=== PATIENT | male | born 1950 | race Caucasian/White ===

== ENCOUNTER → 2018-08-16 08:35 | Outpatient (CLI) | payer MEDICARE, SELFPAY ==
[2018-08-16 09:26] LABS: Absolute Neutrophil Count 2.5 X10^3/uL (2.0-7.7); Basophil# 0.02 X10^3/uL; Basophil% 0.4 % (0-1); Eosinophil# 0.08 X10^3/uL; Eosinophils% 1.6 % (0-5); Hematocrit 44.2 % (40-54); Hemoglobin 15.5 g/dl (13.0-16.5); Lymphocyte % 36.7 % (19-41); Mean Corp Hgb Conc 35.1 g/gl (32-36); Mean Corpuscular Hgb 30.9 pg (27.0-32.0); Mean Corpuscular Volume 88.2 fL (80-94); Mean Platelet Vol. 11.5 fl (6.2-12.0); Monocyte# 0.52 X10^3/uL; Monocyte% 10.6 % (0-10); Neutrophil # 2.48 X10^3/uL (2.7-7.7); Neutrophil % 50.5 % (47-70); Platelet Count 117 K/mm3 (150-450); RBC Distribution Width CV 12.8 % (11.6-14.6); RBC Distribution Width SD 40.6 fl (35.1-43.9); Red Blood Count 5.01 M/mm3 (4.6-6.2); White Blood Count 4.9 K/mm3 (4.4-11.0)
[2018-08-16 09:28] LABS: POSITIVE COUNT NO; POSITIVE DIFFERENTIAL NO; POSITIVE MORPHOLOGY NO
[2018-08-16 09:51] LABS: Anion Gap 6 (5-15); BUN 22 mg/dL (7-18); BUN/Creat Ratio 17.7 RATIO (10-20); Calcium,Total 8.8 mg/dL (8.5-10.1); Chloride 106 mmol/L (98-107); Cholesterol 172 mg/dL (200); Creatinine, Serum 1.24 mg/dL (0.70-1.30); EST Glomerular Filtration Rate 61 mL/min (>60); Est Glom Filt Rate - Afr Amer 74 mL/min (>60); Glucose 109 mg/dL (74-106); High Density Lipoprotein 34 mg/dL; Potassium 4.9 mmol/L (3.5-5.1); Sodium Level 139 mmol/L (136-145); Triglycerides 161 mg/dL; Very Low Density Lipoprotein 32 mg/dL (5-40)
[2018-08-16 10:02] LABS: Hemoglobin A1c 5.1 % (4.2-6.3)
== END ==
PROVIDERS: Family Provider Family Medicine; PCP Family Medicine; Referring Provider Family Medicine; Visit Provider Family Medicine
DX: I10 Essential (primary) hypertension (principal); D69.6 Thrombocytopenia, unspecified; R73.09 Other abnormal glucose; E78.5 Hyperlipidemia, unspecified
CPT/HCPCS: 36415; 80048; 80061; 83036; 85025

== ENCOUNTER → 2018-08-28 08:20 | Outpatient (CLI) | payer MEDICARE, SELFPAY ==
[2018-08-28 09:50] LABS: PSA,Total - Annual Screen 1.74 ng/mL (0.00-4.00)
== END ==
PROVIDERS: Family Provider Family Medicine; PCP Family Medicine; Referring Provider Family Medicine; Visit Provider Family Medicine
DX: Z12.5 Encounter for screening for malignant neoplasm of prostate (principal)
CPT/HCPCS: 36415; 84153; G0103

== ENCOUNTER 2019-01-20 08:25 | Day surgery (SDC) | payer MEDICARE, SELFPAY ==
[2019-01-15 08:20] VITALS: BMI 31.3
--- NOTE | 2019-01-19 22:14 | PCM.HP.BLA ---
History and Physical Date of Admission: 01/20/19 HISTORY OF PRESENT ILLNESS 68 year old man presents with a recently infected soft tissue mass right lateral cheek inferior and adjacent to the earlobe. It was infected about 2 months ago. He was placed on Keflex. It had increased in size at that time and has since become smaller. There is some residual redundant skin in the area of the infected soft tissue mass. He also has concerns about a lesion on his superior helical rim right ear that has increased in size over the last several months as well. He first noticed it as a child. He denies any trauma. He denies any fever. He denies any bleeding or drainage. 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 He sees Dr[address] Her periodically for TBSE. He presents at this time for further evaluation and treatment. PAST MEDICAL HISTORY squamous cell carcinoma right frontal scalp. PAST SURGICAL HISTORY appendectomy. excision squamous cell carcinoma right frontal scalp 2008. ALLERGIES No Known Allergies MEDICATIONS Aspirin [Aspirin, Baby] lisinopril multivitamins. Cholecalciferol (Vitamin D3) [Vitamin D3] FAMILY HISTORY Unknown - No problems noted. SOCIAL HISTORY Smoking Status: Never smoker alcohol intake: never substance use type: does not use REVIEW OF SYSTEMS General - Denies fever, fatigue, and weight loss. Eyes - Denies cataracts and glaucoma. ENT - Denies nasal congestion and sore throat. Endocrine - Denies excessive thirst and urination. Skin - Had squamous cell carcinoma right frontal scalp excised 10 years ago. Has an enlarging lesion superior helical rim right ear. Has a recently infected soft tissue mass right lateral cheek inferior and adjacent to the earlobe. Musculoskeletal - Denies joint pain, joint stiffness, weakness of muscles and joints, back pain, and arthritis. Neuro - Denies headaches. Cardiovascular - Denies chest pain, fatigue, and shortness of breath with exertion. Psych - Denies anxiety and depression. Respiratory - Denies chronic cough and shortness of breath. Gastrointestinal - Denies nausea, vomiting, diarrhea, and constipation. Hematologic - Denies abnormal bruising and bleeding. Genitourinary - Denies hematuria and urinary frequency. PHYSICAL EXAMINATION General - Alert and Oriented HEENT - PERRL. EOMI. Throat is clear. On the right lateral cheek inferior and adjacent to the earlobe is a 9 mm soft tissue mass. Skin is adherent to the mass. No evidence of infection at this time. No ulceration. Mass is nontender. On the superior helical rim right ear is a lesion that measures 2 cm. No adherence to the underlying cartilage. No ulceration. Lesion is nontender. Neck - Supple and nontender. No cervical adenopathy. No suspicious lesions noted. Lungs - Clear to auscultation. Heart - Regular rate and rhythm. Abdomen - Soft and nondistended. Extremities - FROM. No axillary adenopathy. Radial pulses are palpable. No suspicious lesions noted. Neuro - CN II-XII grossly intact. Psych - Normal mood and affect. ASSESSMENT 1. 9 mm infected soft tissue mass right lateral cheek inferior and adjacent to the earlobe. 2. 2 cm lesion superior helical rim right ear. 3. Personal history of skin cancer. PLAN Recommend excision of this infected soft tissue mass right lateral cheek inferior and adjacent to the earlobe and send it to Pathology for analysis to rule out carcinoma. If carcinoma is present, then further excision will be done with skin flap reconstruction. It would a crescenteric advancement flap similar to a facelift type incision. Recommend excision and repair of the lesion superior helical rim right ear. Will send the lesion to Pathology for analysis to rule out carcinoma. Surgery will be done under local anesthesia and IV sedation on an outpatient basis. Patient was informed of the risks and complications of the procedure including alternatives to surgery. These were discussed with the patient personally. Patient voices understanding and wishes to proceed. Some of the risks and complications were included in a form from the [employer].
[2019-01-20 08:56] VITALS: BP 123/68; PULSE 55; RESP 16; TEMP 36.3; O2SAT 97; BMI 32.3
--- NOTE | 2019-01-20 10:05 | MASS_PTH ---
PATIENT: SVEN GORDON LOC: [facility] U#:[id number] AGE/SX: 68/M ROOM: RE01/20/[address]: Dr. Bakari Martin MD : [id number] BED: DIS: 01/20/2019 SPEC #: [id number] RECD: 01/20/19 16:25 STATUS: MAIRO ALBERTO LAZARUS #: [id number] ALEXIS: 01/20/19 10:[address]: Bakari Martin DEPT: SURGICAL PATHOLOGY RECD BY: Gee Hyman ENTERED: 01/21/19 11:30 SP TYPE: Mass OTHR DR: Dr. Toby Burt MD Tissues: A - Cheek, NOS B - Ear, NOS Procedures: Surgery Specimen Level IV HEADER OPERATION: Excision cystic lesion, earlobe/lateral cheek PRE-OP DIAGNOSIS: 9 mm infected soft tissue mass right lateral cheek inferior and adjacent to earlobe; 2 cm lesion superior helical rim right ear; personal history skin cancer TISSUE SUBMITTED: A - Infected soft tissue mass right lateral cheek inferior and adjacent to earlobe, B - Lesion superior helical rim right ear, suture at 12 o'clock including cartilage MICROSCOPIC DIAGNOSIS A. Infected soft tissue mass right lateral cheek inferior and adjacent to earlobe, biopsy: Epidermal inclusion cyst. Focal chronic inflammation and foreign body giant cell reaction. Solar elastosis. Negative for malignancy. B. Lesion superior helical rim right ear, excisional biopsy: Actinic keratosis with minimal atypia. Solar elastosis. Detached fragments of cartilage. Negative for malignancy. SJ:latha 01/22/19 MICROSCOPIC DESCRIPTION Slides are reviewed. GROSS DESCRIPTION A - Received in fixative is one container labeled with the patient's name and designated infected soft tissue mass right lateral cheek inferior and adjacent to earlobe. The specimen consists of three variable sized pieces of skin and underlying tissue measuring in aggregate 0.7 x 0.5 x 0.3 cm. The largest piece is bisected. The entire specimen is submitted in one cassette. B - Received in fixative is one container labeled with the patient's name and designated lesion superior helical rim right ear, suture at 12 o'clock. The specimen consists of a soni-white skin ellipse measuring 2.2 x 0.5 cm and 0.2 cm in thickness. A suture is present identifying the 12 o'clock tip. The specimen is inked as follows: peripheral margin including 3 o'clock - black and the other peripheral margin including 9 o'clock - blue. This piece will be serially sectioned at the time of embedding. Also present in the container are multiple fragments of soni-brown skin measuring in aggregate 1 x 0.5 x 0.2 cm. The entire specimen is submitted in two cassettes as follows: 1 - skin ellipse to be sectioned at the time of embedding, 2 - rest of the specimen. / SJ:rg 01/21/19 TC:5 CPT: 46115 x2
[2019-01-20] MEDS: Mupirocin Ointment 22gm Tube 1 APPLIC (12:37)
--- NOTE | 2019-01-20 12:42 | OP.PCM_ITS ---
Report of Operation Date of Procedure: 01/20/19 Pre-Operative Diagnosis: 1. 9 mm infected soft tissue mass right lateral cheek inferior and adjacent to the earlobe. 2. 2 cm lesion superior helical rim right ear. 3. Personal history of skin cancer. Post-Operative Diagnosis: 1. 9 mm infected soft tissue mass right lateral cheek inferior and adjacent to the earlobe. 2. 2 cm lesion involving underlying cartilage superior helical rim right ear. 3. Personal history of skin cancer. Surgery/Procedure Performed:: 1. Excision 9 mm infected soft tissue mass right lateral cheek inferior and adjacent to the earlobe with postauricular rhomboid transposition skin flap reconstruction (2 cm2). 2. Excision and repair 2 cm lesion involving underlying cartilage superior helical rim right ear. Description of Surgical Findings:: 68 year old man presents with a recently infected soft tissue mass right lateral cheek inferior and adjacent to the earlobe. It was infected about 2 months ago. He was placed on Keflex. It had increased in size at that time and has since become smaller. There is some residual redundant skin in the area of the infected soft tissue mass. He also has concerns about a lesion on his superior helical rim right ear that has increased in size over the last several months as well. He first noticed it as a child. He denies any trauma. He denies any fever. He denies any bleeding or drainage. 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 He sees Dr[address] Her periodically for TBSE. Patient was informed of the risks and complications of the procedure including alternatives to surgery. These were discussed with the patient personally. Patient voices understanding and wishes to proceed. Some of the risks and complications were included in a form from the [employer]. assembler dc field ring: None Type of Anesthesia:: General Specimen's removed: 1. Infected soft tissue mass right lateral cheek inferior and adjacent to the earlobe to Pathology. 2. Lesion involving underlying cartilage superior helical rim right ear to Pathology. Drains: None. Estimated Blood Loss (mL): 25 ml. Description of Procedure: Patient was taken to OR in supine position and was placed under general anesthesia. The right ear was prepped and draped in the usual fashion. SCD's were placed for DVT prophylaxis. Perioperative antibiotics were given intravenously. Using xylocaine with epinephrine, a regional auricular block was infiltrated for postop pain relief. After waiting 5 minutes for the anesthetic to take effect, I excised the infected soft tissue mass lateral cheek inferior and adjacent to the earlobe which included the overlying skin because it was adherent. There was some scar tissue present that was also excised. No pus was seen. The underlying muscle was soft and healthy with no evidence of scarring from his previous infections. The soft tissue mass was sent to Pathology for analysis to rule out carcinoma. The defect extended onto a portion of the earlobe. I marked out a rhomboid flap extending onto the postauricular area. Incisions were made and the flap was elevated on a subcutaneous pedicle down to the level of the underlying muscle. Hemostasis was obtained with electrocautery. The rhomboid flap was easily transposed into the defect with minimal tension and minimal distortion. The flap was closed in multiple layers with 5-0 Monocryl interrupted sutures for the deep dermis and subcutaneous tissue. The skin was approximated with 5-0 Prolene simple interrupted sutures. The size of the defect and the size of the flap needed to close the defect was 2 cm2. Next I excised the lesion on the superior helical rim down to the cartilage. The lesion was adherent to the cartilage and a portion of cartilage was excised with the lesion. The cartilage portion that was excised extended onto the scapha. The lesion and underlying cartilage was sent to Pathology for analysis to rule out carcinoma. Hemostasis was obtained with electrocautery. I then closed the ear defect primarily with 5-0 Monocryl simple interrupted sutures. Good contour was noted. Steri-strips were then applied to both incisions followed by antibiotic ointment. Patient tolerated the procedure well and was sent to PACU in satisfactory condition. Patient will be sent home on antibiotics and pain medication. He will keep his head elevated during the initial postop period. Patient will followup in a week for a wound check and for discussion of the pathology report and for removal of the sutures. Grafts/Implants Used: None. - Complications None. - Admit VTE Documentation VTE Present on Admission: No VTE Mechan Device Prophylaxis: SCD's VTE Pharm Prophylaxis ordered?: No Code Visit Surgery Charges CPT - 83420 ICD-10 - R22.0, Z87.2, Z85.828 78096 D49.2, Z85.828
[2019-01-20 12:53] VITALS: BP 123/66; BP 123/68; PULSE 78; RESP 16; TEMP 36.6; O2SAT 98
--- NOTE | 2019-01-20 12:53 | DCINST_ITS ---
You will use the following diet at home:: No restrictions Discharge Activity: May not drive while taking narcotic pain medications., May Shower - in 2 days., - - keep head elevated. no heavy liftng. May shower in (days): 2 May resume sexual activity in: No Restrictions Weight Bearing Status: Weight bearing as tolerated Lifting Restrictions: 20 lbs. Keep extremity elevated above heart level: - - elevate head. Call your doctor if your incision/area has: Continuous Slow Oozing, Sudden Increased Bleeding, Increased Pain/ Swelling, Increased Redness, Foul Smelling Discharge, Swelling at the incision site Call your doctor if you observe: Fever of 101 or Higher, Coldness, Increased Pain, Shortness of breath, Chest pain, Calf discomfort, Uncontrolled pain Suture Line Care: - - apply bactroban ointment to suture line daily. Change Dressing in (Days):: 2 Cleanse incision/area with: - - may get incisions wet in the shower in two days. Allergies/Adverse Reactions: Allergies No Known Allergies Allergy (Verified 01/16/19 15:42) Medications to take at Discharge lisinopril 5 mg tablet 5 mg PO DAILY 12/23/18 [id number] acid 300 mcg-lycopene 600 mcg-lutein 300 mcg tablet 1 tab PO DAILY 12/23/18 Cholecalciferol (Vitamin D3) [Vitamin D3] 2,000 unit PO DAILY 01/16/19 Clindamycin HCl [Cleocin] 300 mg PO TID #15 cap 01/20/19 Lactobacillus Acidophilus/Fos [Acidophilus Probiotic Tablet] 1 ea PO BID #10 tab 01/20/19 Oxycodone HCl/Acetaminophen [Percocet 5/325] 1 tab PO 4X/DAY PRN PRN 5 Days #20 tab 01/20/19 The following prescriptions were given: Oxycodone HCl/Acetaminophen [Percocet 5/325] 1 tab PO 4X/DAY PRN PRN 5 Days #20 tab PRN Reason: Pain Lactobacillus Acidophilus/Fos [Acidophilus Probiotic Tablet] 1 ea PO BID #10 tab Clindamycin HCl [Cleocin] 300 mg PO TID #15 cap Primary Care Physician: Toby Burt MD [Primary Care Provider] - Test Results: Test results from this visit will be discussed in further detail at your follow- up appointment, if applicable. Please Follow Up With: Bakari Martin MD When: one week. call [phone] for appt. Proposed Discharge Date: 01/20/19
[2019-01-20 13:01] VITALS: BP 115/71; BP 123/68; PULSE 78; RESP 16; O2SAT 98
[2019-01-20 13:12] VITALS: BP 120/73; BP 123/68; PULSE 74; RESP 18; TEMP 36.6; O2SAT 98
[2019-01-20 14:15] VITALS: BP 109/61; BP 123/68; PULSE 62; RESP 18; TEMP 36.7; O2SAT 94
== END 2019-01-20 14:16 | disposition home or self-care (01) ==
LOC: SDC 08:27 → AC 08:27
PROVIDERS: Family Provider Family Medicine; PCP Family Medicine; Referring Provider Surgery; Visit Provider Surgery
PROC: (CPT 14040; principal; 2019-01-20 09:55)
DX: R22.0 Localized swelling, mass and lump, head (principal); L98.8 Other specified disorders of the skin and subcutaneous tissue; L72.0 Epidermal cyst; L57.0 Actinic keratosis; Z85.828 Personal history of other malignant neoplasm of skin; L08.9 Local infection of the skin and subcutaneous tissue, unspecified; Z79.899 Other long term (current) drug therapy; Z79.82 Long term (current) use of aspirin; I10 Essential (primary) hypertension; L90.5 Scar conditions and fibrosis of skin
CPT/HCPCS: 00120; 14040; 69110; 88305; J7120; J2405

== ENCOUNTER → 2019-08-30 08:02 | Outpatient (CLI) | payer MEDICARE, SELFPAY ==
[2019-02-13 10:19] VITALS: BMI 32.3
[2019-08-30 08:54] LABS: Absolute Neutrophil Count 3.2 X10^3/uL (2.0-7.7); Basophil# 0.02 X10^3/uL; Basophil% 0.3 % (0-1); Eosinophil# 0.14 X10^3/uL; Eosinophils% 2.4 % (0-5); Hematocrit 43.7 % (40-54); Lymphocyte % 32.9 % (19-41); Mean Corp Hgb Conc 34.3 g/dL (32-36); Mean Corpuscular Hgb 30.5 pg (27.0-32.0); Mean Platelet Vol. 11.4 fl (6.2-12.0); Monocyte# 0.56 X10^3/uL; Monocyte% 9.7 % (0-10); NRBC Flagged by Analyzer 0 % (0-5); Neutrophil # 3.15 X10^3/uL (2.7-7.7); Neutrophil % 54.5 % (47-70); Platelet Count 149 K/mm3 (150-450); RBC Distribution Width CV 12.5 % (11.6-14.6); RBC Distribution Width SD 40.5 fl (35.1-43.9); Red Blood Count 4.91 M/mm3 (4.6-6.2); White Blood Count 5.8 K/mm3 (4.4-11.0)
[2019-08-30 09:27] LABS: Anion Gap 3 (5-15); BUN 20 mg/dL (7-18); BUN/Creat Ratio 15.9 RATIO (10-20); Calcium,Total 8.9 mg/dL (8.5-10.1); Chloride 107 mmol/L (98-107); Cholesterol 179 mg/dL (200); Creatinine, Serum 1.26 mg/dL (0.70-1.30); EST Glomerular Filtration Rate 60 mL/min (>60); Est Glom Filt Rate - Afr Amer 73 mL/min (>60); Glucose 104 mg/dL (74-106); High Density Lipoprotein 37 mg/dL; PSA,Total - Annual Screen 1.45 ng/mL (0.00-4.00); Potassium 4.4 mmol/L (3.5-5.1); Sodium Level 139 mmol/L (136-145); Triglycerides 117 mg/dL; Very Low Density Lipoprotein 23 mg/dL (5-40)
== END ==
PROVIDERS: Family Provider Family Medicine; PCP Family Medicine; Referring Provider Family Medicine; Visit Provider Family Medicine
DX: I10 Essential (primary) hypertension (principal); R73.09 Other abnormal glucose; E78.5 Hyperlipidemia, unspecified; Z12.5 Encounter for screening for malignant neoplasm of prostate
CPT/HCPCS: 36415; 80048; 80061; 83036; 84153; 85025; G0103

== ENCOUNTER 2020-01-06 01:45 | Emergency (ER) | payer MEDICARE, SELFPAY ==
[2019-02-13 10:19] VITALS: BMI 32.3
[2020-01-06 01:45] VITALS: BP 178/73; PULSE 72; RESP 12; TEMP 36.9; O2SAT 98; BMI 30.9
--- NOTE | 2020-01-06 01:48 | EKG12_ITS ---
Test Reason : PALPITATIONS Blood Pressure : / mmHG Vent. Rate : 060 BPM Atrial Rate : 060 BPM P-R Int : 184 ms QRS Dur : 092 ms QT Int : 402 ms P-R-T Axes : 030 018 027 degrees QTc Int : 402 ms Normal sinus rhythm Normal ECG Confirmed by SANTOS SKY MD ([id number]), non linear editor FLORES VARGAS ([id number]) on 01/08/2020 1:31:02 PM Referred By: STEVIE Confirmed By:SANTOS SKY MD
--- NOTE | 2020-01-06 01:48 | RAD_ITS ---
STUDY: X-RAY CHEST REASON FOR EXAM: Male, 69 years old. HIGH HR AND BP. HAS BEEN HAPPENING INTERMITTENTLY FOR 1.5 WEEKS. TECHNIQUE: Single AP portable view of the chest. COMPARISON: None. FINDINGS: There is decreased inspiratory effort with vascular crowding, otherwise lung vera are clear. There is no demonstrated pleural abnormality. Normal size heart. Normal mediastinum and laura. Normal visualized pulmonary arteries. There is atherosclerotic calcification of the aortic arch with tortuosity. There are diffuse degenerative changes of the visualized thoracic spine. There is degenerative osteoarthritis of the bilateral shoulders. There is no demonstrated abnormality of the visualized soft tissue structures of the upper abdomen. RAD/Chest 1 View (Portable) IMPRESSION: Decreased inspiration with vascular crowding, otherwise no acute cardiopulmonary disease. Electronically Signed: Breanna Larose MD at 2:47 EDT , Service support ,
--- NOTE | 2020-01-06 02:08 | ED.DCSUM_ITS ---
- ER Visit Summary Date of Service: 01/06/20 Chief Complaint: Heart palpitations History of Present Illness: The patient is a [address] hypertension for which she is on lisinopril. Patient states he and his recently took a 2-month cruise from [place] around [place] in that area. Said he is done well. Since he has been home the last 1 to 2 weeks he is noticed palpitations of his heart. This at times heart rate will race. At other times his blood pressures been elevated. He denies any significant chest pain. No shortness of breath. No exertional chest pain or dyspnea. Said he is never had cardiac history before. Denies any leg pain or swelling. No hemoptysis. He denies any nausea, vomiting or diarrhea. Denies any fever or chills. Denies any significant cough. Physical Examination: Older male no acute distress vital signs stable afebrile. Pulse ox 90% on room air no signs of hypoxia. No distress. H EENT exam unremarkable. Moist use membranes. Neck nontender. No lymphadenopathy. No thyromegaly. Lungs clear to auscultation bilaterally. Heart regular rate and rhythm rate about 60 no murmur. Abdomen soft nontender normal bowel sounds no peritoneal signs. Patient is moving all 4 extremities. Calves are nontender without edema or cords. Neurologically is awake and alert with no focal motor deficits. Test Results: EKG shows a normal sinus rhythm rate of 60 with no signs of ID or ischemia. No dysrhythmia. Chest x-ray portable 1 view read both by myself and the radiologist shows no acute abnormality. Normal cardiac silhouette. Normal lung vera. No infiltrate. No cardiomegaly. CBC normal white count of 7. Hemoglobin 15. Chemistries normal normal creatinine 1.1. Normal gap. TSH normal at 2.98. Troponin normal. Emergency Department Course and Treatment: Patient with palpitations. Currently exam is normal. Heart rate is 60. No murmur. No dysrhythmia currently. He will undergo cardiac work-up. Reportedly his may have some information from a [employer] watch I will see if she has that with her. Repeat exam patient is doing well at 3:51 AM. I did discuss with his and she showed me the recordings from the [employer] watch. They were basically unrema rkable. There is no signs of A. fib or flutter. No signs of SVT or V. tach. He may have had a transient dysrhythmia but nothing I can find currently. Treatment Plan: Outpatient follow-up. Primary care physician may choose to put him on a Holter or an event monitor at home. Disposition: Discharge Impression: Acute palpitations of uncertain etiology resolved This note was generated with [employer] dictation software. It may contain incorrect words, spelling, and punctuation that were not noted in review of the chart prior to signing ED Disposition - Plan for ED Patient: Referrals: Toby Burt MD [Primary Care Provider] -
[2020-01-06 02:12] LABS: Absolute Lymphocyte Count 2.58 X10^3/uL (0.83-4.51); Absolute Neutrophil Count 3.9 X10^3/uL (2.0-7.7); Basophil# 0.02 X10^3/uL; Basophil% 0.3 % (0-1); Eosinophil# 0.12 X10^3/uL; Eosinophils% 1.6 % (0-5); Hematocrit 45.6 % (40-54); Hemoglobin 15.9 g/dL (13.0-16.5); Lymphocyte # 2.58 X10^3/ul (4.0); Lymphocyte % 35.4 % (19-41); Mean Corp Hgb Conc 34.9 g/dL (32-36); Mean Corpuscular Hgb 30.9 pg (27.0-32.0); Mean Corpuscular Volume 88.5 fL (80-94); Mean Platelet Vol. 10.6 fl (6.2-12.0); Monocyte# 0.68 X10^3/uL; Monocyte% 9.3 % (0-10); NRBC Flagged by Analyzer 0 % (0-5); Neutrophil # 3.85 X10^3/uL (2.7-7.7); Platelet Count 144 K/mm3 (150-450); RBC Distribution Width CV 12.2 % (11.6-14.6); RBC Distribution Width SD 39.8 fl (35.1-43.9); Red Blood Count 5.15 M/mm3 (4.6-6.2); White Blood Count 7.3 K/mm3 (4.4-11.0)
[2020-01-06 03:12] LABS: Anion Gap 4 (5-15); BUN 24 mg/dL (7-18); BUN/Creat Ratio 20.5 RATIO (10-20); Calcium,Total 8.9 mg/dL (8.5-10.1); Chloride 107 mmol/L (98-107); Creatinine, Serum 1.17 mg/dL (0.70-1.30); EST Glomerular Filtration Rate 65 mL/min (>60); Est Glom Filt Rate - Afr Amer 79 mL/min (>60); Estimated Creatinine Clearance 54.14 ml/min; Glucose 116 mg/dL (74-106); Potassium 4.4 mmol/L (3.5-5.1); Sodium Level 139 mmol/L (136-145); Thyroid Stim Hormone (TSH) 2.98 uIU/mL (0.358-3.74)
[2020-01-06 03:45] VITALS: BP 137/69; PULSE 57; RESP 16; O2SAT 96
--- NOTE | 2020-01-06 03:55 | ED.DEP ---
ED Disposition - Plan for ED Patient: Disposition: Home or Assisted Living Instructions: Palpitations Referrals: Robbin Robles MD [STAFF PHYSICIAN] - As soon as possible Additional Instructions: All your lab work, chest x-ray and EKG were normal today. Your blood counts, electrolytes, heart enzyme and thyroid test were all normal. There were no signs of any abnormal rhythm while you are in the emergency department. Follow-up your primary care physician they can have you wear either an event monitor or a Holter monitor to evaluate your heart rate at home to see if there is any abnormality.
[2020-01-06 04:00] VITALS: BP 137/69; PULSE 57; RESP 16; O2SAT 96
== END 2020-01-06 04:03 | disposition home or self-care (01) ==
PROVIDERS: Emergency Provider Emergency Medicine; PCP Family Medicine
DX: R00.2 Palpitations (principal); I10 Essential (primary) hypertension; Z79.899 Other long term (current) drug therapy
CPT/HCPCS: 71045; 80048; 84443; 84484; 85025; 93005; 99284; A4216

== ENCOUNTER 2020-01-08 03:05 | Emergency (ER) | payer MEDICARE, SELFPAY ==
[2020-01-08 03:06] VITALS: BP 169/83; PULSE 68; RESP 14; TEMP 36.6; O2SAT 98; BMI 31.1
--- NOTE | 2020-01-08 03:17 | EKG12_ITS ---
Test Reason : DYSRHYTHMIA Blood Pressure : / mmHG Vent. Rate : 059 BPM Atrial Rate : 059 BPM P-R Int : 192 ms QRS Dur : 096 ms QT Int : 394 ms P-R-T Axes : 026 040 035 degrees QTc Int : 390 ms Sinus bradycardia Otherwise normal ECG Confirmed by JOSE DANIEL BYRNES, SANTOS ([id number]), newspaper editor managing FLORES VARGAS ([id number]) on 01/08/2020 1:44:48 PM Referred By: KIT Confirmed By:SANTOS SKY MD
--- NOTE | 2020-01-08 03:18 | ED.DCSUM_ITS ---
History of Present Illness Chief Complaint: General Illness Informant: Patient Narrative: Stated this evening he felt some palpitations in his heart rate was up to 110. This was concerning to him. He was seen on Sunday for similar complaints. He stated he rolled over in bed and felt a twinge for a second on the left side of his chest. It went away. He felt like his hands and feet were sweaty. He stated his heart started to race. He took his blood pressure and it was elevated at 190 systolic. Earlier in the day his blood pressure was 120 systolic. He saw his doctor yesterday who plans on doing a Holter monitor as well as a outpatient stress test. He denies any current chest pain or symptoms at this time. He does not feel like his heart is racing. He has been monitoring his heart rate with his apple watch. Denies any cardiac history. Nothing he can think of brings it on. - Past Medical History (1) Topical medication dermatitis Status: Acute Comment: Betadine prep (2) Actinic keratosis Status: Chronic Comment: 2 cm actinic keratosis with minimal atypia superior helical rim right ear (3) Cheek mass Status: Chronic Comment: 9 mm infected soft tissue mass right lateral cheek inferior and adjacent to earlobe (4) Epidermal inclusion cyst Status: Chronic Comment: 9 mm infected epidermal inclusion cyst right lateral cheek inferior and adjacent to earlobe (5) History of cellulitis Status: Chronic Comment: 9 mm infected soft tissue mass right lateral cheek inferior and adjacent to earlobe (6) Neoplasm of skin of ear Status: Chronic Comment: 2 cm lesion superior helical rim right ear (7) Personal history of skin cancer Status: Chronic Past Medical History - Allergies and Home Meds Allergies/Adverse Reactions: Allergies No Known Allergies Allergy (Verified 01/08/20 03:11) Primary Care Physician: Toby Burt MD [STAFF PHYSICIAN] - Prior records reviewed: Yes Past Medical History: - - Problem list, hypertension, palpitations Surgical History: - - Reviewed Lives: With Family Smoking Status: Never smoker Alcohol: None Drugs: None Review of Systems General: Denies: Chills, Fever, Sweats Eyes: Denies: Visual changes - bilaterally, Diplopia ENT: Denies: Rhinorrhea, Sore throat Cardiovascular: Reports: Palpitations. Denies: Chest pain Respiratory: Denies: Dyspnea, Cough, Dyspnea on exertion Gastrointestinal: Denies: Abdominal pain, Nausea, Vomiting, Diarrhea, Melena, Hematochezia Genitourinary: Denies: Dysuria, Hematuria, Frequency Musculoskeletal: Denies: Back pain, Extremity Pain Skin: Denies: Rash, Wounds Neurological: Denies: Headache, Weakness, Numbness Physical Exam Vital Signs/Narrative: Vital Signs Temp Pulse Resp BP Pulse Ox 01/08/20 03:06 98 F 68 14 169/83 H 98 General: Well nourished, Well developed, No Acute Distress Head: Normocephalic, Atraumatic Eyes: Perrl, EOMI ENT: Moist mucous membranes, No rhinorrhea Neck: Supple, Nontender Cardiovascular: Regular rate, Regular rhythm, No murmurs Respiratory: No distress, CTA bilaterally, Chest nontender Abdomen: Soft, Nontender, Nondistended, Normal bowel sounds Back: Nontender, Normal Inspection Extremities: Nontender, No edema Skin: Normal color, No rash Neurological: Alert, Oriented x3, Cranial nerves II-XII grossly intact, Normal Strength, Normal Sensation Psychological: Normal affect, Normal Mood Diagnostic/Tx/Re-eval - Medical Decision Making Patient watched on the monitor. He is in normal sinus rhythm upon arrival w ithout ischemia or arrhythmia. EKG obtained. EKG shows normal sinus rhythm at a rate of 59. No ischemia or arrhythmia. Patient watched on the monitor with no arrhythmia for approximately an hour. I will set him up for a Holter monitor for the next 24 hours. He felt a mild twinge followed by this reaction. It is possible that he had a panic attack. Nonetheless I feel it is important to chec k this. He will try this and follow-up as an outpatient. I do not feel he needs repeat her lab work or imaging. He is asymptomatic currently. Repeat blood pressure down to 152/77 after resting for some time ED Disposition - Plan for ED Patient: Disposition: Home or Assisted Living Diagnosis: Palpitations Instructions: ED Palpitations Referrals: Mare Lyons MD [Primary Care Provider] -
[2020-01-08 03:35] VITALS: BP 155/75; PULSE 58; RESP 13; O2SAT 98
[2020-01-08 03:54] VITALS: BP 152/77; PULSE 65; RESP 17; O2SAT 99
[2020-01-08 04:08] VITALS: BP 170/84; PULSE 64; RESP 15; O2SAT 96
== END 2020-01-08 04:09 | disposition home or self-care (01) ==
PROVIDERS: Emergency Provider Emergency Medicine; PCP Family Medicine
DX: R00.2 Palpitations (principal); I10 Essential (primary) hypertension
CPT/HCPCS: 93005; 93225; 93226; 99282

== ENCOUNTER → 2020-01-08 03:43 | Outpatient (CLI) | payer MEDICARE, SELFPAY ==
[2020-01-08 03:06] VITALS: BMI 31.1
== END ==
PROVIDERS: PCP Family Medicine; Visit Provider Internal Medicine Cardiovascular Disease
DX: R00.2 Palpitations (principal)
CPT/HCPCS: 93005; 93225; 93226

== ENCOUNTER → 2020-01-09 10:26 | Outpatient (CLI) | payer MEDICARE, SELFPAY ==
[2020-01-08 03:06] VITALS: BMI 31.1
[2020-01-09 13:20] LABS: CRP < 2.90 mg/L (0.0-3.0); Magnesium 2.2 mg/dL (1.6-2.6); T4 Free Direct 1.28 ng/dL (0.76-1.46)
[2020-01-09 13:30] LABS: Hemoglobin A1c 5.2 % (4.2-6.3)
== END ==
PROVIDERS: PCP Family Medicine; Visit Provider Family Medicine
DX: R00.2 Palpitations (principal); R73.09 Other abnormal glucose
CPT/HCPCS: 36415; 83036; 83735; 84439; 86140

== ENCOUNTER 2020-01-15 22:24 | Observation (INO) | payer MEDICARE, SELFPAY ==
[2020-01-15 22:25] VITALS: BP 163/83; PULSE 57; RESP 18; TEMP 36.8; O2SAT 99; BMI 30.7
--- NOTE | 2020-01-15 22:44 | EKG12_ITS ---
Test Reason : CP Blood Pressure : / mmHG Vent. Rate : 047 BPM Atrial Rate : 047 BPM P-R Int : 200 ms QRS Dur : 090 ms QT Int : 404 ms P-R-T Axes : 039 034 029 degrees QTc Int : 357 ms Sinus bradycardia Otherwise normal ECG Confirmed by KARTHIK BYRNES, SHYANNE ([id number]), general expeditor FLORES VARGAS ([id number]) on 01/20/2020 2:17:23 PM Referred By: STEVIE Confirmed By:WILMAN ANGELES MD
--- NOTE | 2020-01-15 22:45 | ED.VIS.GEN ---
History of Present Illness Chief Complaint: Chest Pain Informant: Patient Onset: Days Context: Onset with activity, Gradual Onset Timing: Intermittent Current Severity: Mild Maximum Severity: Moderate Narrative: The patient is a 69-year-old male with medical history significant for hypertension that presents to the emergency department with chest pain. Patient states that for the past 2 or 3 weeks, he has been having intermittent chest pain. He states it started on 29 December. He states he was doing some gardening. He states that shortly after, he began to have substernal left heaviness in his chest that went away with rest. He states since that time, he is been having intermittent pain when he exerts himself. It is nonradiating, but he does become diaphoretic with it. He will also feel short of breath and just generally fatigued. He has no history of coronary vascular disease. He has seen his primary care who has adjusted his antihypertensives. He states this is really not changed his symptoms. He is scheduled for an outpatient stress test in a week. He was concerned because he had the pain again today with just some light activity. Prior similar symptoms: No Recent Illness/Hospitalization: No Past Medical History - Allergies and Home Meds Allergies/Adverse Reactions: Allergies No Known Allergies Allergy (Verified 01/08/20 03:11) Primary Care Physician: Mare Lyons MD [Primary Care Provider] - Prior records reviewed: Yes Past Medical History: - - Hypertension Surgical History: noncontributory, - - Reviewed Smoking Status: Never smoker Review of Systems General: Denies: Chills, Fever, Sweats Eyes: Denies: Visual changes - bilaterally, Diplopia ENT: Denies: Rhinorrhea, Sore throat Cardiovascular: Reports: Chest pain. Denies: Palpitations Respiratory: Reports: Dyspnea. Denies: Cough, Dyspnea on exertion Gastrointestinal: Denies: Abdominal pain, Nausea, Vomiting, Diarrhea, Melena, Hematochezia Genitourinary: Denies: Dysuria, Hematuria, Frequency Musculoskeletal: Denies: Back pain, Extremity Pain Skin: Denies: Rash, Wounds Neurological: Denies: Headache, Weakness, Numbness Physical Exam Vital Signs/Narrative: Vital Signs Temp Pulse Resp BP Pulse Ox 01/15/20 22:25 98.2 F 57 L 18 163/83 H 99 Inital Vital Signs reviewed: Yes General: Well nourished, Well developed, No Acute Distress Head: Normocephalic, Atraumatic Eyes: Perrl, EOMI ENT: Moist mucous membranes, No rhinorrhea Neck: Supple, Nontender Cardiovascular: Regular rate, Regular rhythm, No murmurs Respiratory: No distress, CTA bilaterally, Chest nontender Abdomen: Soft, Nontender, Nondistended, Normal bowel sounds Back: Nontender, Normal Inspection Extremities: Nontender, No edema Skin: Normal color, No rash Neurological: Alert, Oriented x3, Cranial nerves II-XII grossly intact, Normal Strength, Normal Sensation Psychological: Normal affect, Normal Mood Diagnostic/Tx/Re-eval Clinical Impression(s) from Imaging Studies Chest X-Ray 01/15/20 23:02 IMPRESSION: Normal x-ray examination of the chest. Electronically Signed: Jaden Patino DO at 23:22 EDT Tel [phone], Service support , Abnormal Lab Results 01/15/20 01/15/20 01/15/20 22:50 22:50 22:50 WBC 7.6 RBC 4.85 Hgb 14.9 Hct 43.4 MCV 89.5 MCH 30.7 MCHC 34.3 RDW Std Deviation 39.8 RDW Coeff of David 12.3 Plt Count 144 L MPV 11.0 Immature Gran % (Auto) 0.300 Neut % (Auto) 56.0 Lymph % (Auto) 33.0 [place] % (Auto) 9.2 Eos % (Auto) 1.2 Baso % (Auto) 0.3 Absolute Neuts (auto) 4.3 Absolute Lymphs (auto) 2.51 Nucleated RBC % 0 Sodium 141 Potassium 4.5 Chloride 107 Carbon Dioxide 29.0 Anion Gap 5 BUN 20 H Creatinine 1.24 Estim Creat Clear Calc 51.09 Est GFR (MDRD) Af Amer 74 Est GFR (MDRD) Non-Af 61 BUN/Creatinine Ratio 16.1 Glucose 88 Calcium 9.2 Magnesium 2.2 Troponin I < 0.015 B-Natriuretic Peptide 122.1 H - Rhythm Strip Rhythm Strip: Sinus Rhythm Rate: 60 Ectopy: None - EKG Initial EKG Interpretation: Sinus Rhythm, No Acute Injury Pattern Prior: Unchanged - Medical Decision Making The patient presents with symptoms that do sound like stable angina, however today, he had some pain at rest. His EKG does not show any acute ischemic change. The patient is pain-free on arrival. He is scheduled for outpatient stress testing, but with his persistent symptoms and now pain at rest, I do feel that he would benefit from observation for cardiac rule out. The patient was discussed with the hospitalist. Impression 1. Chest pain ED Disposition - Plan for ED Patient: Referrals: Mare Lyons MD [Primary Care Provider] -
--- NOTE | 2020-01-15 23:02 | RAD_ITS ---
STUDY: X-RAY CHEST REASON FOR EXAM: Male, 69 years old. INTERMITTENT CHEST PAIN -- RECENT TRAVEL TO [place] 2 WEEKS AGO TECHNIQUE: Frontal view COMPARISON: January 06, 2020 FINDINGS: The lungs are clear and expanded. There is no demonstrated pleural abnormality. Normal size heart. Normal mediastinum and laura. Normal visualized pulmonary arteries. Normal visualized aortic arch and descending thoracic aorta. Normal visualized thoracic spine. Normal visualized ribs, clavicles, and shoulders. There is no demonstrated abnormality of the visualized soft tissue structures of the upper abdomen. RAD/Chest 1 View (Portable) IMPRESSION: Normal x-ray examination of the chest. Electronically Signed: Jaden Patino DO at 23:22 EDT Tel [phone], Service support ,
[2020-01-15 23:05] LABS: Absolute Lymphocyte Count 2.51 X10^3/uL (0.83-4.51); Absolute Neutrophil Count 4.3 X10^3/uL (2.0-7.7); Basophil# 0.02 X10^3/uL; Basophil% 0.3 % (0-1); Eosinophil# 0.09 X10^3/uL; Eosinophils% 1.2 % (0-5); Hematocrit 43.4 % (40-54); Hemoglobin 14.9 g/dL (13.0-16.5); Lymphocyte # 2.51 X10^3/ul (4.0); Mean Corp Hgb Conc 34.3 g/dL (32-36); Mean Corpuscular Hgb 30.7 pg (27.0-32.0); Mean Corpuscular Volume 89.5 fL (80-94); Monocyte% 9.2 % (0-10); NRBC Flagged by Analyzer 0 % (0-5); Neutrophil # 4.27 X10^3/uL (2.7-7.7); Platelet Count 144 K/mm3 (150-450); RBC Distribution Width CV 12.3 % (11.6-14.6); RBC Distribution Width SD 39.8 fl (35.1-43.9); Red Blood Count 4.85 M/mm3 (4.6-6.2); White Blood Count 7.6 K/mm3 (4.4-11.0)
[2020-01-15] MEDS: 0.9% Normal Saline 1,000 ML 150 ML IV (23:09)
[2020-01-15] MEDS: Aspirin 81 MG TAB.CHEW 324 MG PO (23:09)
[2020-01-15 23:23] LABS: Anion Gap 5 (5-15); BUN 20 mg/dL (7-18); BUN/Creat Ratio 16.1 RATIO (10-20); Calcium,Total 9.2 mg/dL (8.5-10.1); Chloride 107 mmol/L (98-107); Creatinine, Serum 1.24 mg/dL (0.70-1.30); EST Glomerular Filtration Rate 61 mL/min (>60); Est Glom Filt Rate - Afr Amer 74 mL/min (>60); Estimated Creatinine Clearance 51.09 ml/min; Glucose 88 mg/dL (74-106); Magnesium 2.2 mg/dL (1.6-2.6); Potassium 4.5 mmol/L (3.5-5.1); Sodium Level 141 mmol/L (136-145)
[2020-01-15 23:25] VITALS: BP 142/73; PULSE 52; RESP 12; O2SAT 99
[2020-01-15 23:25] LABS: BNP,B-Type NATRIURETIC PEPTIDE 122.1 pg/mL (0-100)
--- NOTE | 2020-01-15 23:31 | PCM.HP.STD ---
Problem List (1) Chest pain Status: Acute (2) Epidermal inclusion cyst Status: Chronic Comment: 9 mm infected epidermal inclusion cyst right lateral cheek inferior and adjacent to earlobe (3) Actinic keratosis Status: Chronic Comment: 2 cm actinic keratosis with minimal atypia superior helical rim right ear (4) History of cellulitis Status: Chronic Comment: 9 mm infected soft tissue mass right lateral cheek inferior and adjacent to earlobe (5) Personal history of skin cancer Status: Chronic (6) Cheek mass Status: Chronic Comment: 9 mm infected soft tissue mass right lateral cheek inferior and adjacent to earlobe (7) 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 He denies nausea; vomiting or shortness of breath. However he reports focal hyperhidrosis of his hands and his feet. His symptoms started on December 30 2019 after exerting himself by doing gardening. He rates his pain as 5 out of 10. His pain is dull. His pain mostly occurs with exertion. However, he has had pain even while at rest. Associated with his symptoms is palpitation. He wore a 24-hour heart monitor. He does not know the results of the heart monitor. He has a watch that monitors his pulse rate. He reports tachycardia from the watch. Also he reports high blood pressure. Because his PCP thought that his symptoms may be related to high blood pressure his lisinopril that he used to take 5 mg daily was changed to 10 mg twice a day. Because of his symptoms he is scheduled for an outpatient stress test on January 21, 2020 However on the day of presentation after he walked on stairs his symptoms recurred so he came to the emergency department. On January 06, 2020 and January 08, 2020 he was evaluated at the emergency department for palpitations. 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 Smoking Status: Never smoker Alcohol: Occasional - *Family History Maternal Family History: Family History (Last Updated 12/23/18 @ 13:32 by Iwona Corbin) Unknown No problems noted. History Items: - - His mother was healthy. His mother at the age of 92. Paternal Family History: Family History (Last Updated 12/23/18 @ 13:32 by Iwona Corbin) Unknown No problems noted. History Items: - - Father had abdominal aorta aneurysm. His father from complication of a kidney stone surgery. Review of Systems Constitutional: Denies: Chills, Fever, Weight Change HEENT: Denies: Head Aches, Sinus Congestion, Sinus Drainage Cardiovascular: Reports: Chest Pain, Palpitations Respiratory: Denies: Cough, Shortness of breath at rest, Sputum production Gastrointestinal: Denies: Abdominal Pain, Nausea, Vomiting Genitourinary: Reports: Frequency. Denies: Dysuria Musculoskeletal: Denies: Joint Pain, Joint Tenderness Skin: Denies: Rash, Wounds Neurological: Denies: Numbness, Tingling, Focal weakness Psychiatric: Denies: Anxiety, Depression, Homicidal Ideations, Suicidal Ideations Hematologic/ Lymphatic: Denies: Easy Bruising, Easy Bleeding VTE Information - Inpt Only VTE Present on Admission: No VTE Mechan Device Prophylaxis: SCD's VTE Pharm Prophylaxis ordered?: No Patient Problems: Active and Suspected Problems Chest pain (Acute) - Physical Exam Vitals/I&O's: Vital Signs Temp Pulse Resp BP Pulse Ox 98.2 F 57 L 18 163/83 H 99 01/15/20 22:25 01/15/20 22:25 01/15/20 22:25 01/15/20 22:25 01/15/20 22:25 Oxygen Delivery Method Room Air Weight: 88.9 kg Body Mass Index (BMI) 30.7 General: Alert, Oriented x3, Cooperative HEENT: Atraumatic, PERRLA, EOMI, Normocephalic Neck: Supple, No JVD, Negative Carotid Bruits Lungs: Clear to auscultation, Normal air movement, No rhonchi, No wheeze, No rales Cardiovascular: Normal S1, Normal S2, No murmurs, Bradycardic Abdomen: Bowel Sounds Present, Soft, Non Tender Extremities: No edema, Capillary Refill Less than 3 Seconds Skin: No rashes, No breakdown Musculoskeletal: No Tenderness to Palpation of Joints or Extremities Neurological: Cranial nerves II-XII grossly intact Psych/Mental Status: Normal Affect, Appropriate Laboratory Results 01/15/20 22:50: WBC 7.6, RBC 4.85, Hgb 14.9, Hct 43.4, MCV 89.5, MCH 30.7, MCHC 34.3, RDW Std Deviation 39.8, RDW Coeff of David 12.3, Plt Count 144 L, MPV 11.0, Immature Gran % (Auto) 0.300, Neut % (Auto) 56.0, Lymph % (Auto) 33.0, [place] % (Auto) 9.2, Eos % (Auto) 1.2, Baso % (Auto) 0.3, Absolute Neuts (auto) 4.3, Absolute Lymphs (auto) 2.51, Nucleated RBC % 0 01/15/20 22:50: Sodium 141, Potassium 4.5, Chloride 107, Carbon Dioxide 29.0, Anion Gap 5, BUN 20 H, Creatinine 1.24, Estim Creat Clear Calc 51.09, Est GFR (MDRD) Af Amer 74, Est GFR (MDRD) Non-Af 61, BUN/Creatinine Ratio 16.1, Glucose 88, Calcium 9.2, Magnesium 2.2, Troponin I < 0.015 01/15/20 22:50: B-Natriuretic Peptide 122.1 H Current Medications Sodium Chloride () 1,000 mls @ 150 mls/hr IV .[id number] [facility] Last Admin: 01/15/20 23:09 Dose: 150 mls/hr Documented by: Assessment/Plan All Active Problems Chest pain (Acute) The patient is a 69 year old M with a significant history of hypertension who presents to the emergency department with episodic left-sided chest pain that radiates to under his left armpit and to his upper back. Chest Pain Heart score: 4 points, moderate score ( moderately suspicious history; EKG normal; Age more or equal to 65; risk factors 1-2 risk factors (hypertension, BMI more equal to 30); initial troponin less or equal to normal limits) LINH score for unstable angina/non-STEMI: 3 points (positive for age more equal to 65; aspirin use in past 7 days; positive for severe angina (more than 2 episodes in 24 hours)) Place on a monitored bed at PCU CXR independently reviewed confirms no acute cardiopulmonary process. EKG independently reviewed confirms sinus bradycardia with ventricular rate of 47. Received 324 mg of aspirin at emergency department. Continue patient on baby aspirin daily. SL NTG 0.4 mg prn as needed for chest pain A1c on 08/30/2019 was 5.0. Lipid profile on 08/30/2018 showed triglyceride of 117; cholesterol 179; LDL of 119; VLDL of 23; HDL 37. Lisinopril continued . Serial cardiac enzymes Stat EKG as needed for chest pain. keep npo Consider discussing case with cardiology in a.m. HTN On presentation blood pressure was not within goal. Lisinopril continued. Trend blood pressure and adjust blood pressure medications. Frequent urination On the same day of presentation reports frequent urination. Will get complete urinalysis. If urinalysis is unremarkable and symptoms persist recommend outpatient follow-up with urology. Of note hemoglobin A1c was 5.0 on 08/30/2019. DVT prophylaxis SCD OBSV E&M: [id number] Initial observation care L3
[2020-01-15 23:45] VITALS: BP 143/73; PULSE 52; RESP 12; TEMP 36.7; O2SAT 99
[2020-01-16] VITALS (7 sets, daily range): BP systolic 128–146; BP diastolic 55–71; PULSE 46–52; RESP 16–18; TEMP 36.6–36.7; O2SAT 96–100; BMI 30.4
--- NOTE | 2020-01-16 00:15 | EKG12_ITS ---
Test Reason : CP ADMISSION Blood Pressure : / mmHG Vent. Rate : 048 BPM Atrial Rate : 048 BPM P-R Int : 198 ms QRS Dur : 090 ms QT Int : 408 ms P-R-T Axes : 043 046 041 degrees QTc Int : 364 ms Sinus bradycardia Otherwise normal ECG When compared with ECG of 16-JAN-2020 00:38, MANUAL COMPARISON REQUIRED, DATA IS UNCONFIRMED Confirmed by JOSE DANIEL BYRNES, SANTOS ([id number]), newspaper photo editor FLORES VARGAS ([id number]) on 01/20/2020 2:41:27 PM Referred By: MARIBEL Confirmed By:SANTOS SKY MD
--- NOTE | 2020-01-16 00:38 | EKG12_ITS ---
Test Reason : CP ADMISSION Blood Pressure : / mmHG Vent. Rate : 044 BPM Atrial Rate : 044 BPM P-R Int : 204 ms QRS Dur : 090 ms QT Int : 410 ms P-R-T Axes : 037 044 037 degrees QTc Int : 350 ms Marked sinus bradycardia with sinus arrhythmia Abnormal ECG When compared with ECG of 15-JAN-2020 22:37, MANUAL COMPARISON REQUIRED, DATA IS UNCONFIRMED Confirmed by JOSE DANIEL BYRNES, SANTOS ([id number]), assistant production editor FLORES VARGAS ([id number]) on 01/20/2020 2:44:17 PM Referred By: MARIBEL Confirmed By:SANTOS SKY MD
[2020-01-16 03:38] LABS: Bacteria 0 SEEN /hpf (None Seen); Mucous, Urine 0 SEEN /hpf (<or=2+); Red Blood Cells-Urine 0 SEEN /hpf (0-5); White Blood Cells 0 SEEN /hpf (0-5)
[2020-01-16 03:39] LABS: Color, Urine Yellow (Yellow); Glucose, Dipstick Normal (Normal); Ketone-Dipstick Negative (Negative); Leukocyte Esterase-Dipstick Negative /ul (Negative); Nitrite-Dipstick Negative (Negative); Occult Blood-Urine Negative /ul (Negative); Protein-Dipstick Negative (Negative); Urine Bilirubin Dipstick Negative (Negative); Urine Clarity Sl. Cloudy (Clear); Urine Urobilinogen Normal (Normal)
[2020-01-16 03:56] LABS: Squamous Epithelial Cells - UA 0-5 SEEN /hpf (0-5)
[2020-01-16] MEDS: Aspirin E.C. 81 MG Tablet PO (06:46)
[2020-01-16] MEDS: Lisinopril 10 MG Tablet PO (06:46)
--- NOTE | 2020-01-16 11:30 | STRESSREP ---
Stress Test Report Date: 01/16/2020 Procedure: Pharmacologic stress nuclear imaging study Indications: Chest pain Consent: Per the patient Procedure: The patient underwent pharmacologic (Regadenoson) evaluation with a peak heart rate of 150 beats per minute (100 %predicted maximal heart rate) and a peak blood pressure of 138/82 mmHg. The baseline ECG demonstrated sinus bradycardia. EKG during lexiscan infusion revealed no significant ST-T changes. EKG post infusion revealed no significant ST-T changes. [There were no cardiac dysrhythmias pretest, during pharmacologic infusion, or recovery]. [There was no complaint of chest discomfort during pharmacologic infusion or recovery]. The examination was discontinued secondary to completion of protocol. Impression: 1. Lexiscan stress test test is negative for Lexiscan infusion induced EKG changes of ischemia. 2. Lexiscan stress test test is negative for Lexiscan infusion induced chest pain. 3. Results of the nuclear portion of the test is as below Myocardial perfusion imaging study: Technique: The patient was injected with 13.5 millicuries of technetium 99m Cardiolite and subsequently rest SPECT Cardiolite nuclear imaging was obtained in the horizontal long, vertical long, and short axis views. The patient underwent pharmacologic (Regadenoson) evaluation. Please see above for details. The patient was injected with 41 millicuries of technetium 99m Cardiolite and subsequently stress SPECT Cardiolite nuclear imaging was obtained in the horizontal long, vertical long, and short axis views. A gated Cardiolite study at peak stress was obtained. Interpretation: Rest and stress SPECT Cardiolite nuclear imaging status post realignment, normalization, and attenuation correction demonstrate mild decrease in the radioisotope uptake in the apex on both the rest and stress images. These findings are suggestive of apical thinning, normal variant. There is no significant reversibility. Gated images reveal no significant regional wall motion abnormalities. The reported LVEF is 59 %. Impression: 1. There is no evidence of significant ischemia or infarction. 2. Estimated ejection fraction is 59%. This note was generated with Floobitsation software. It may contain incorrect words, spelling, and punctuation that were not noted in checking the note before signing.
--- NOTE | 2020-01-16 11:47 | PCM.DC ---
- Discharge Diagnoses Current Active Problems: Current Active and Chronic Problems Chest pain (Acute) You will use the following diet at home:: Cardiac Your food should be the consistency of: Regular Your liquids should be the consistency of: Regular/Thin Discharge Activity: Return to Normal Activity Call your doctor if you observe: Shortness of breath, Chest pain Allergies/Adverse Reactions: Allergies No Known Allergies Allergy (Verified 01/08/20 03:11) Medications to take at Discharge lisinopril 5 mg tablet 10 mg PO BID 12/23/18 xqkdhivv-dun-ofsxt acid 300 mcg-lycopene 600 mcg-lutein 300 mcg tablet 1 tab PO DAILY 12/23/18 Cholecalciferol (Vitamin D3) [Vitamin D3] 2,000 unit PO DAILY 01/16/19 Aspirin 81 mg PO DAILY 01/06/20 Amlodipine [Norvasc] 5 mg PO DAILY #30 tab 01/16/20 The following prescriptions were given: Amlodipine [Norvasc] 5 mg PO DAILY #30 tab Transmission Status: Pending to [id number] Primary Care Physician: Mare Lyons MD [Primary Care Provider] - Please follow up with your Primary Care Physician in: 1 week Test Results: Test results from this visit will be discussed in further detail at your follow-up appointment, if applicable. Proposed Discharge Date: 01/16/20
--- NOTE | 2020-01-16 11:48 | DS.PCM_ITS ---
<Juma Roberts - Last Filed: 01/16/20 11:48> Discharge Date and Diagnosis - Problem List Patient Problems: Active and Suspected Problems Chest pain (Acute) Date of Admission: 01/16/20 Date of Discharge: 01/16/20 - Primary Discharge Diagnosis Active and Suspected Problems Chest pain - musculoskeletal Bradycardia HTN Hx actinic keratosis, skin cancer - Secondary Discharge Diagnosis Chronic Problems Epidermal inclusion cyst (Chronic) 9 mm infected epidermal inclusion cyst right lateral cheek inferior and adjacent to earlobe Actinic keratosis (Chronic) 2 cm actinic keratosis with minimal atypia superior helical rim right ear History of cellulitis (Chronic) 9 mm infected soft tissue mass right lateral cheek inferior and adjacent to earlobe Personal history of skin cancer (Chronic) Cheek mass (Chronic) 9 mm infected soft tissue mass right lateral cheek inferior and adjacent to earlobe Neoplasm of skin of ear (Chronic) 2 cm lesion superior helical rim right ear Hospital Course and Treatment Imaging Results: 01/16/20 05:55 Nuclear Stress Test - Chemical [NM] Routine Impression: 1. There is no evidence of significant ischemia or infarction. 2. Estimated ejection fraction is 59%. RAD/Chest 1 View (Portable) IMPRESSION: Normal x-ray examination of the chest. Operations: None Procedures: Stress test Summary of Care Provided: Hospital Course: The patient is a 69 year old M with past medical history of hypertension, actinic keratosis and skin cancer, who presented to the emergency room with complaints of chest pain. He was having intermittent chest pain that would occ ur when walking up an incline, and also sometimes at rest. This was left-sided dull 5 out of 10 pain with radiation to the left armpit and back, and sweating of his hands. He recently had adjustments to his blood pressure medications as PCP felt that his pains were related to high blood pressure. He was planning to have an outpatient stress test however was having worsening of his symptoms he came to the ER. In the ER he had a negative troponin, negative chest x-ray, negative EKG. He was admitted to the PCU on telemetry. On telemetry overnight he did have some bradycardia as low as 35 bpm. His bisoprolol was discontinued. Troponin was negative x3. Repeat EKG was negative. Stress test was negative following morning. He was placed on Norvasc instead of bisoprolol and will continue his lisinopril. He will need to follow-up with his PCP in 1 week. If he continues to have ongoing chest pain he may need to speak to his PCP for possible referral to cardiology and further workup. He was discharged home in stable condition. This patient was seen by Juma Roberts PA-C under the supervision of Dr. Barrientos [] Patient Problems: Active and Suspected Problems Chest pain (Acute) - Physical Exam Vitals/I&O's: Vital Signs Temp Pulse Resp BP Pulse Ox 97.9 F 51 L 16 130/55 H 97 01/16/20 08:45 01/16/20 08:45 01/16/20 08:45 01/16/20 08:45 01/16/20 08:45 Oxygen Delivery Method Room Air Weight: 194 lb 3.636 oz Body Mass Index (BMI) 30.4 Intake and Output for Last 24 Hours 01/14/20 01/15/20 01/16/20 23:59 23:59 23:59 Intake Total 282.5 / 282.5 Balance 282.5 / 282.5 General: Alert, Oriented x3, Cooperative HEENT: Atraumatic, PERRLA, EOMI, Normocephalic Neck: Supple, No JVD, Negative Carotid Bruits Lungs: Clear to auscultation, Normal air movement Cardiovascular: Regular rate, No murmurs Abdomen: Bowel Sounds Present, Soft, Non Tender Extremities: No edema, Capillary Refill Less than 3 Seconds Skin: No rashes, No breakdown Musculoskeletal: No Tenderness to Palpation of Joints or Extremities Neurological: Cranial nerves II-XII grossly intact Psych/Mental Status: Normal Affect, Appropriate, Alert and oriented to time, place, person, mood and affect Laboratory Results 01/15/20 22:50: WBC 7.6, RBC 4.85, Hgb 14.9, Hct 43.4, MCV 89.5, MCH 30.7, MCHC 34.3, RDW Std Deviation 39.8, RDW Coeff of David 12.3, Plt Count 144 L, MPV 11.0, Immature Gran % (Auto) 0.300, Neut % (Auto) 56.0, Lymph % (Auto) 33.0, Stokes % (Auto) 9.2, Eos % (Auto) 1.2, Baso % (Auto) 0.3, Absolute Neuts (auto) 4.3, Absolute Lymphs (auto) 2.51, Nucleated RBC % 0 01/15/20 22:50: Sodium 141, Potassium 4.5, Chloride 107, Carbon Dioxide 29.0, Anion Gap 5, BUN 20 H, Creatinine 1.24, Estim Creat Clear Calc 51.09, Est GFR (MDRD) Af Amer 74, Est GFR (MDRD) Non-Af 61, BUN/Creatinine Ratio 16.1, Glucose 88, Calcium 9.2, Magnesium 2.2, Troponin I < 0.015 01/15/20 22:50: B-Natriuretic Peptide 122.1 H 01/16/20 02:08: Troponin I < 0.015 01/16/20 03:30: Urine Color Yellow, Urine Clarity Sl. Cloudy, Urine pH 6.0, Ur Specific Piggott 1.010, Urine Protein Negative, Urine Glucose (UA) Normal, Urine Ketones Negative, Urine Occult Blood Negative, Urine Nitrite Negative, Urine Bilirubin Negative, Urine Urobilinogen Normal, Ur Leukocyte Esterase Negative, Urine RBC 0 SEEN, Urine WBC 0 SEEN, Ur Squamous Epith Cells 0-5 SEEN, Urine Bacteria 0 SEEN, Urine Mucus 0 SEEN 01/16/20 04:52: Troponin I < 0.015 Current Medications Acetaminophen (Tylenol) 650 mg PO Q6H PRN PRN PRN Reason: Pain Score 1-10/Temp > 100.7 F Aspirin (Ecotrin) 81 mg PO DAILY@0800 [facility] Last Admin: 01/16/20 06:46 Dose: 81 mg Documented by: Dextrose (D50w Syringe) 12.5 - 25 gm IV X1 PRN; Protocol PRN Reason: Hypoglycemia Glucagon () 1 mg IM .X1 PRN PRN Reason: Hypoglycemia Sodium Chloride () 250 mls @ 15 mls/hr IV .[id number] PRN PRN Reason: Saline Flush Sodium Chloride () 250 mls @ 15 mls/hr IV .[id number] PRN PRN Reason: Additional IVPB Infusion Lisinopril (Zestril) 10 mg PO BID [facility] Last Admin: 01/16/20 06:46 Dose: 10 mg Documented by: Nitroglycerin (Nitrostat) 0.4 mg SUBLINGUAL Q5M PRN PRN Reason: CHEST PAIN Ondansetron HCl (Zofran) 4 mg IV Q8H PRN PRN PRN Reason: NAUSEA/VOMITING Sodium Chloride () 10 - 40 ml IV UD PRN PRN Reason: SALINE FLUSH Discharge Diet: Low fat/ Low Cholesterol, 2000 mg Sodium Diet Discharge Activity: Return to Normal Activity Call your doctor if you observe: Shortness of breath, Chest pain Home Medications: Medications to take at Discharge lisinopril 5 mg tablet 10 mg PO BID 12/23/18 veyvgniv-meb-etmyx acid 300 mcg-lycopene 600 mcg-lutein 300 mcg tablet 1 tab PO DAILY 12/23/18 Cholecalciferol (Vitamin D3) [Vitamin D3] 2,000 unit PO DAILY 01/16/19 Aspirin 81 mg PO DAILY 01/06/20 Amlodipine [Norvasc] 5 mg PO DAILY #30 tab 01/16/20 Following Prescrptions Were Given to Patient: Amlodipine [Norvasc] 5 mg PO DAILY #30 tab Transmission [facility]: [facility] Primary Care Physician: Mare Lyons MD [Primary Care Provider] - Please follow up with your Primary Care Physician in: 1 week Disposition: Home Minutes spent on discharge:: 35 Patient Condition:: Stable Medical Necessity - Tobacco Use Smoking Status: Never smoker Meaningful Use Info Meaningful Use Diagnoses (Choose all that apply): None applicable <Kevin Barrientos - Last Filed: 01/16/20 12:40> Discharge Date and Diagnosis - Primary Discharge Diagnosis Active and Suspected Problems Chest pain (Acute) - Secondary Discharge Diagnosis Chronic Problems Epidermal inclusion cyst (Chronic) 9 mm infected epidermal inclusion cyst right lateral cheek inferior and adjacent to earlobe Actinic keratosis (Chronic) 2 cm actinic keratosis with minimal atypia superior helical rim right ear History of cellulitis (Chronic) 9 mm infected soft tissue mass right lateral cheek inferior and adjacent to earlobe Personal history of skin cancer (Chronic) Cheek mass (Chronic) 9 mm infected soft tissue mass right lateral cheek inferior and adjacent to earlobe Neoplasm of skin of ear (Chronic) 2 cm lesion superior helical rim right ear Hospital Course and Treatment Imaging Results: 01/16/20 05:55 Nuclear Stress Test - Chemical [NM] Routine Summary of Care Provided: The patient is a 69 year old M [] - Physical Exam Vitals/I&O's: Vital Signs Temp Pulse Resp BP Pulse Ox 97.9 F 51 L 16 130/55 H 97 01/16/20 08:45 01/16/20 08:45 01/16/20 08:45 01/16/20 08:45 01/16/20 08:45 Oxygen Delivery Method Room Air Weight: 194 lb 3.636 oz Body Mass Index (BMI) 30.4 Intake and Output for Last 24 Hours 01/14/20 01/15/20 01/16/20 23:59 23:59 23:59 Intake Total 282.5 / 282.5 Balance 282.5 / 282.5 Laboratory Results 01/15/20 22:50: WBC 7.6, RBC 4.85, Hgb 14.9, Hct 43.4, MCV 89.5, MCH 30.7, MCHC 34.3, RDW Std Deviation 39.8, RDW Coeff of David 12.3, Plt Count 144 L, MPV 11.0, Immature Gran % (Auto) 0.300, Neut % (Auto) 56.0, Lymph % (Auto) 33.0, Stokes % (Auto) 9.2, Eos % (Auto) 1.2, Baso % (Auto) 0.3, Absolute Neuts (auto) 4.3, Absolute Lymphs (auto) 2.51, Nucleated RBC % 0 01/15/20 22:50: Sodium 141, Potassium 4.5, Chloride 107, Carbon Dioxide 29.0, Anion Gap 5, BUN 20 H, Creatinine 1.24, Estim Creat Clear Calc 51.09, Est GFR (MDRD) Af Amer 74, Est GFR (MDRD) Non-Af 61, BUN/Creatinine Ratio 16.1, Glucose 88, Calcium 9.2, Magnesium 2.2, Troponin I < 0.015 01/15/20 22:50: B-Natriuretic Peptide 122.1 H 01/16/20 02:08: Troponin I < 0.015 01/16/20 03:30: Urine Color Yellow, Urine Clarity Sl. Cloudy, Urine pH 6.0, Ur Specific [place]ott 1.010, Urine Protein Negative, Urine Glucose (UA) Normal, Urine Ketones Negative, Urine Occult Blood Negative, Urine Nitrite Negative, Urine Bilirubin Negative, Urine Urobilinogen Normal, Ur Leukocyte Esterase Negative, Urine RBC 0 SEEN, Urine WBC 0 SEEN, Ur Squamous Epith Cells 0-5 SEEN, Urine Bacteria 0 SEEN, Urine Mucus 0 SEEN 01/16/20 04:52: Troponin I < 0.015 Current Medications Acetaminophen (Tylenol) 650 mg PO Q6H PRN PRN PRN Reason: Pain Score 1-10/Temp > 100.7 F Aspirin (Ecotrin) 81 mg PO DAILY@0800 [facility] Last Admin: 01/16/20 06:46 Dose: 81 mg Documented by: Dextrose (D50w Syringe) 12.5 - 25 gm IV X1 PRN; Protocol PRN Reason: Hypoglycemia Glucagon () 1 mg IM .X1 PRN PRN Reason: Hypoglycemia Sodium Chloride () 250 mls @ 15 mls/hr IV .[id number] PRN PRN Reason: Saline Flush Sodium Chloride () 250 mls @ 15 mls/hr IV .[id number] PRN PRN Reason: Additional IVPB Infusion Lisinopril (Zestril) 10 mg PO BID [facility] Last Admin: 01/16/20 06:46 Dose: 10 mg Documented by: Nitroglycerin (Nitrostat) 0.4 mg SUBLINGUAL Q5M PRN PRN Reason: CHEST PAIN Ondansetron HCl (Zofran) 4 mg IV Q8H PRN PRN PRN Reason: NAUSEA/VOMITING Sodium Chloride () 10 - 40 ml IV UD PRN PRN Reason: SALINE FLUSH Addendum: Dr. Barrientos I personally examined the patient and reviewed the chart. I agree with the above. 69-year-old male with a history of hypertension presents with 17 days of intermittent chest pain. He was scheduled to have a stress test next week however he had another episode of chest pain yesterday and therefore came into the ER. EKGs and troponins were all negative. He underwent a stress test today which was unremarkable with an EF of 59%. He has been noticing that the chest pain has been coming with activity and at one point both his heart rate and blood pressure were significantly elevated. He says all this started on December 29 when he was digging up a flower [place]. I discussed with him that since his stress test negative and his chest pain has completely resolved that he is able to go home we did discontinue his bisoprolol because of bradycardia and switched him to Norvasc. I did discuss with him that if he has chest pain that he is to call his PCP or return to the ER. He wants to go home and he expressed understanding of the risk and benefits of discharge today. OBSV E&M: [id number] Observation care discharge
== END 2020-01-16 11:47 | disposition home or self-care (01) ==
LOC: ED 23:13 → PCU 01-16 00:32
PROVIDERS: Admitting Provider Hospitalist; Emergency Provider Emergency Medicine; PCP Family Medicine; Visit Provider Family Medicine
DX: R07.89 Other chest pain (principal); I10 Essential (primary) hypertension; R06.02 Shortness of breath; R35.0 Frequency of micturition; Z79.899 Other long term (current) drug therapy; Z79.82 Long term (current) use of aspirin; Z85.828 Personal history of other malignant neoplasm of skin; R00.1 Bradycardia, unspecified
CPT/HCPCS: 36415; 71045; 78452; 80048; 81001; 83735; 83880; 84484; 85025; 93005; 93017; 96360; 96361; 99218; 99285; A9500; J7030; A4216; G0378; J2785

== ENCOUNTER → 2020-02-10 07:50 | Outpatient (CLI) | payer MEDICARE, SELFPAY ==
[2020-01-16 00:23] VITALS: BMI 30.4
--- NOTE | 2020-02-10 07:53 | RDU_ITS ---
Reason For Study: Hypertension Right Renal Artery Left Renal Artery Right renal artery ostium Left renal artery ostium 74.4/17.9 105.2/30.3 RSV/EDV. PSV/EDV. Right renal artery proximal Left renal artery proximal PSV/EDV 127.1/39.5 PSV/EDV. 112.5/37.6 . Right renal artery mid 132.6/41.3 Left renal artery mid 114.3/37.6 PSV/EDV. PSV/EDV . Right renal artery distal Left renal artery distal 100.8/37.1 105.8/32.7 PSV/EDV. PSV/EDV. Right RAR 2.29. Left RAR 1.97. Right Renal Parenchyma Left Renal Parenchyma Upper Pole Medula 31.9/9.2 PSV/EDV. Left upper pole medulla 29/8.7 Right upper pole medulla EDR 0.29 . PSV/EDV . Right upper pole medulla R.I. Left upper pole medulla EDR 0.30 . 0.71 . Left upper pole medulla R.I. 0.70 . Upper Alberto Cortx 17/6 PSV/EDV. UP Cortex 16.1/6.3 PSV/EDV. Right upper pole cortex EDR 0.35 . Left upper pole cortex EDR 0.39 . Right upper pole cortex R.I. 0.65 . Left upper pole cortex R.I. 0.61 . Right lower Pole medulla 29.1/10.4 Left lower Pole medulla 27.8/8.1 PSV/EDV . PSV/EDV . Right lower pole medulla EDR 0.36 . Left lower pole medulla EDR 0.29 . Right lower pole medulla R.I. Left lower pole medulla R.I. 0.71 . 0.64 . Lower Pole Cortx 18.5/6.9 PSV/EDV. Lower Pole Cortex 20.3/7.6 PSV/EDV. Left lower pole cortex EDR 0.37 . Right lower pole cortex EDR 0.37 . Left lower pole cortex R.I. 0.63 . Right lower pole cortex R.I. 0.62 . Left Renal Hilar Right Renal Hilar LT Hilar avg 44.7/16.3 PSV/EDV . Right Hilar avg 37.4/12.8 PSV/EDV. Left hilar acceleration time 40 Right hilar acceleration time 40 m/sec. m/sec. Left Renal Dimensions Right Renal Dimensions Left kidney size 10.27 cm . Right kidney size 9.18 cm . Left cortical dimension 1.94 cm . Right cortical dimension 1.62 cm . Aorta Proximal abdominal aorta 2.04 x 2.00 cm . Proximal abdominal aorta peak systolic velocity is 58 cm/sec . Distal abdominal aorta 2.51 x 2.46 cm . Distal abdominal aorta peak systolic velocity is 55.5 cm/sec . Interpretation Summary Dimensions of the intra-abdominal aorta appear normal, without evidence of aneurysmal dilatation. Renal artery velocities are bilaterally normal. Acceleration times are normal bilaterally. Renal- aortic ratios are also bilaterally normal. There is no evidence of hemodynamically significant renal artery stenosis on either side. Renovascular resistance appears to be bilaterally normal . The right cortical dimension is increased. The left cortical dimension is increased. Kidneys are normal in size. The left kidney is more than one centimeter larger than the right kidney. Ordering Physician: Toby Govea Referring Physician: Toby Govea Performed By: Renetta Rahman RVT
== END ==
PROVIDERS: PCP Family Medicine; Referring Provider Family Medicine; Visit Provider Family Medicine
DX: I10 Essential (primary) hypertension (principal)
CPT/HCPCS: 93975

== ENCOUNTER → 2020-02-11 10:01 | Outpatient (CLI) | payer MEDICARE, SELFPAY ==
[2020-02-11 08:51] VITALS: BMI 31.1
[2020-02-11 11:36] LABS: Absolute Lymphocyte Count 1.77 X10^3/uL (0.83-4.51); Absolute Neutrophil Count 2.7 X10^3/uL (2.0-7.7); Basophil# 0.01 X10^3/uL; Basophil% 0.2 % (0-1); Hematocrit 43.1 % (40-54); Hemoglobin 14.8 g/dL (13.0-16.5); Lymphocyte # 1.77 X10^3/ul (4.0); Lymphocyte % 34.6 % (19-41); Mean Corp Hgb Conc 34.3 g/dL (32-36); Mean Corpuscular Hgb 30.3 pg (27.0-32.0); Mean Corpuscular Volume 88.1 fL (80-94); Mean Platelet Vol. 11.6 fl (6.2-12.0); Monocyte# 0.56 X10^3/uL; NRBC Flagged by Analyzer 0 % (0-5); Neutrophil # 2.65 X10^3/uL (2.7-7.7); Neutrophil % 51.8 % (47-70); Platelet Count 145 K/mm3 (150-450); RBC Distribution Width CV 12.7 % (11.6-14.6); RBC Distribution Width SD 40.9 fl (35.1-43.9); Red Blood Count 4.89 M/mm3 (4.6-6.2); White Blood Count 5.1 K/mm3 (4.4-11.0)
[2020-02-11 12:05] LABS: Anion Gap 5 (5-15); BUN 23 mg/dL (7-18); BUN/Creat Ratio 19.7 RATIO (10-20); Calcium,Total 9.2 mg/dL (8.5-10.1); Chloride 108 mmol/L (98-107); Creatinine, Serum 1.17 mg/dL (0.70-1.30); EST Glomerular Filtration Rate 65 mL/min (>60); Est Glom Filt Rate - Afr Amer 79 mL/min (>60); Glucose 73 mg/dL (74-106); Potassium 4.2 mmol/L (3.5-5.1); Sodium Level 141 mmol/L (136-145)
== END ==
PROVIDERS: PCP Family Medicine; Referring Provider Internal Medicine Cardiovascular Disease; Visit Provider Internal Medicine Cardiovascular Disease
DX: R07.9 Chest pain, unspecified (principal); R00.1 Bradycardia, unspecified
CPT/HCPCS: 36415; 80048; 85025

== ENCOUNTER 2020-02-16 08:47 | Day surgery (SDC) | payer MEDICARE, SELFPAY ==
[2020-02-11 08:51] VITALS: BMI 31.1
[2020-02-13 11:58] VITALS: BMI 31.1
--- NOTE | 2020-02-16 09:00 | EKG12_ITS ---
Test Reason : ABNORMAL EKG Blood Pressure : / mmHG Vent. Rate : 082 BPM Atrial Rate : 082 BPM P-R Int : 174 ms QRS Dur : 090 ms QT Int : 358 ms P-R-T Axes : 036 045 024 degrees QTc Int : 418 ms Normal sinus rhythm with sinus arrhythmia Normal ECG When compared with ECG of 16-JAN-2020 00:39, Vent. rate has increased BY 34 BPM QT has lengthened Confirmed by JOSE DANIEL BYRNES, SANTOS ([id number]), image editor FLORES VARGAS ([id number]) on 02/17/2020 11:41:41 AM Referred By: Santos Aj Confirmed By:SANTOS AJ MD
--- NOTE | 2020-02-16 12:25 | CL.D_ITS ---
Patient Name: SVEN GORDON Study Date: 02/16/2020 Performing: Derik Aj MD Ht: 66.92 inches 170 cm : 1950 Wt: 198.42 lbs 90 kg Age: 69 Gender: male BSA: 2.01 PROCEDURE(S) PERFORMED [id number]/LV CLINICAL PROFILE AND INDICATIONS Indications: Worsening Angina Heart Failure: None Stress/Imaging Stress/Image Study Performed: No CAD Presentations: Unstable angina. CONCLUSIONS Non obstructive coronary arteries RECOMMENDATIONS Medical therapy DESCRIPTION OF PROCEDURE The patient arrived to the procedure lab. The risks and benefits of the procedure as well as a full d escription of our services here and current unavailability of surgical backup were fully explained to the patient and/or their significant other prior to the catheterization. The Timeout was completed, verifying the correct patient and procedure. The patient's procedural site was prepped and draped in the usual fashion. Local anesthetic was given subcutaneously to right radial region with Lidocaine 2% . Using a modified Seldinger technique, arterial access was obtained via the right radial artery, a 6 Fr sheath was inserted. Right Coronary Artery selective angiography was then performed in multiple v iews using a 5 Fr. 4.0 [place] catheter. Left Coronary Artery selective angiography was performed in mu ltiple views using a 5 Fr. 4.0 [place] catheter. Left Ventriculography was performed in SANDOVAL projection using a 5 Fr. Pigtail catheter. LV to AO pullback pressures were then recorded.The arterial sheath was pulled and a TR Band was applied for hemostasis-11 cc air CORONARY ANGIOGRAPHY DOMINANCE: Right Dominant LEFT HEART ASSESSMENT Left Ventricular Ejection Fraction: by LV Gram 60 % Normal LV wall motion Normal Left Ventricular systolic function LEFT MAIN: Angiographically normal LEFT ANTERIOR DESCENDING ARTERY: Mild luminal irregularities less than 30% CIRCUMFLEX ARTERY: No significant disease noted RIGHT CORONARY ARTERY: Mild luminal irregularities less than 30% COMPLICATIONS No Complications PROCEDURE MEDICATIONS Fentanyl 50 mcg IV Versed 1 mg IV Oxygen: 2 L/min via nasal cannula Heparin diluted in 23cc Heparinized saline. Patient given 10cc IA of this solution. 02/16/2020 11:52:4 3 Verapamil 2.5mg, Ntg 100mcgs, 2000 units of Heparin diluted in 23cc Heparinized saline. Patient give n 10cc IA of this solution. 02/16/2020 11:52:43 SUMMARY OF HEMODYNAMIC DATA Time AIR REST ECG 09:09:30 AO 100/62 (79) SA 12:02:57 LV 105/0, 3 12:08:37 LV 109/0, 2 12:08:43 LV 99/-8, 4 12:09:24 LVp 104/-9, 8 12:09:30 AOp 104/51 (73) 12:09:35 ECG 12:21:36 Signed By Derik Aj MD On 02/16/2020 12:24:41 Derik Aj MD
== END 2020-02-16 14:10 | disposition home or self-care (01) ==
LOC: CLSP 08:50
PROVIDERS: PCP Family Medicine; Referring Provider Internal Medicine Cardiovascular Disease; Visit Provider Internal Medicine Cardiovascular Disease
DX: R07.89 Other chest pain (principal); E66.9 Obesity, unspecified; Z68.31 Body mass index [BMI] 31.0-31.9, adult; I10 Essential (primary) hypertension; Z85.828 Personal history of other malignant neoplasm of skin; Z79.82 Long term (current) use of aspirin; Z79.899 Other long term (current) drug therapy
CPT/HCPCS: 93005; 93458; 99152; 99153; J7040; Q9967; C1769; C1894

== ENCOUNTER → 2020-06-05 09:09 | Outpatient (CLI) | payer MEDICARE, SELFPAY ==
[2020-02-13 11:58] VITALS: BMI 31.1
[2020-06-05 10:36] LABS: ALB/GLOB Ratio 1.3 RATIO (0.9-2.4); AST(SGOT) 20 U/L (15-37); Alanine Aminotransfer ALT/SGPT 29 U/L (16-61); Alkaline Phosphatase 90 U/L (45-117); Anion Gap 1 (5-15); BUN 21 mg/dL (7-18); BUN/Creat Ratio 17.4 RATIO (10-20); Calcium,Total 8.9 mg/dL (8.5-10.1); Chloride 108 mmol/L (98-107); Cholesterol 101 mg/dL (200); Creatinine, Serum 1.21 mg/dL (0.70-1.30); EST Glomerular Filtration Rate 63 mL/min (>60); Est Glom Filt Rate - Afr Amer 76 mL/min (>60); Globulin 3.1 g/dL (2.2-4.2); Glucose 101 mg/dL (74-106); High Density Lipoprotein 37 mg/dL; Potassium 4.5 mmol/L (3.5-5.1); Protein, Total 7.1 g/dL (6.4-8.2); Sodium Level 138 mmol/L (136-145); Triglycerides 98 mg/dL; Very Low Density Lipoprotein 20 mg/dL (5-40)
== END ==
PROVIDERS: PCP Family Medicine; Referring Provider Family Medicine; Visit Provider Family Medicine
DX: E78.5 Hyperlipidemia, unspecified (principal)
CPT/HCPCS: 36415; 80053; 80061

== ENCOUNTER → 2020-08-27 08:37 | Outpatient (CLI) | payer MEDICARE, SELFPAY ==
[2020-02-13 11:58] VITALS: BMI 31.1
[2020-08-27 09:39] LABS: ALB/GLOB Ratio 1.1 RATIO (0.9-2.4); AST(SGOT) 16 U/L (15-37); Alanine Aminotransfer ALT/SGPT 27 U/L (16-61); Albumin, Serum 3.5 g/dL (3.2-5.0); Alkaline Phosphatase 85 U/L (45-117); Anion Gap 0 (5-15); BUN 21 mg/dL (7-18); BUN/Creat Ratio 18.6 RATIO (10-20); Calcium,Total 8.6 mg/dL (8.5-10.1); Chloride 110 mmol/L (98-107); Cholesterol 102 mg/dL (200); Creatinine, Serum 1.13 mg/dL (0.70-1.30); EST Glomerular Filtration Rate 68 mL/min (>60); Est Glom Filt Rate - Afr Amer 82 mL/min (>60); Globulin 3.1 g/dL (2.2-4.2); Glucose 100 mg/dL (74-106); High Density Lipoprotein 36 mg/dL; Potassium 4.4 mmol/L (3.5-5.1); Protein, Total 6.6 g/dL (6.4-8.2); Sodium Level 139 mmol/L (136-145); Triglycerides 73 mg/dL; Very Low Density Lipoprotein 15 mg/dL (5-40)
== END ==
PROVIDERS: PCP Family Medicine; Referring Provider Family Medicine; Visit Provider Family Medicine
DX: E78.5 Hyperlipidemia, unspecified (principal)
CPT/HCPCS: 36415; 80053; 80061

== ENCOUNTER 2020-12-08 13:46 | Outpatient (RCR) | payer MEDICARE, SELFPAY ==
[2020-09-07 13:56] VITALS: BMI 31.8
== END 2020-12-08 23:59 ==
LOC: IMMUN 13:46
PROVIDERS: PCP Family Medicine; Visit Provider Family Medicine
DX: Z23 Encounter for immunization (principal)
CPT/HCPCS: 0011A; 0012A; 91301

== ENCOUNTER → 2021-02-23 08:28 | Outpatient (CLI) | payer MEDICARE, SELFPAY ==
[2020-09-07 13:56] VITALS: BMI 31.8
[2021-02-23 09:44] LABS: ALB/GLOB Ratio 1.1 RATIO (0.9-2.4); AST(SGOT) 19 U/L (15-37); Alanine Aminotransfer ALT/SGPT 32 U/L (16-61); Albumin, Serum 3.9 g/dL (3.2-5.0); Alkaline Phosphatase 93 U/L (45-117); Anion Gap 2 (5-15); BUN 21 mg/dL (7-18); BUN/Creat Ratio 16.4 RATIO (10-20); Calcium,Total 9.1 mg/dL (8.5-10.1); Chloride 106 mmol/L (98-107); Cholesterol 115 mg/dL (200); Creatinine, Serum 1.28 mg/dL (0.70-1.30); EST Glomerular Filtration Rate 59 mL/min (>60); Est Glom Filt Rate - Afr Amer 71 mL/min (>60); Globulin 3.4 g/dL (2.2-4.2); Glucose 100 mg/dL (74-106); High Density Lipoprotein 43 mg/dL; Potassium 4.4 mmol/L (3.5-5.1); Protein, Total 7.3 g/dL (6.4-8.2); Sodium Level 137 mmol/L (136-145); Triglycerides 95 mg/dL; Very Low Density Lipoprotein 19 mg/dL (5-40)
== END ==
PROVIDERS: PCP Family Medicine; Referring Provider Family Medicine; Visit Provider Family Medicine
DX: I10 Essential (primary) hypertension (principal)
CPT/HCPCS: 36415; 80053; 80061

== ENCOUNTER → 2021-08-29 08:40 | Outpatient (CLI) | payer MEDICARE, SELFPAY ==
[2021-08-29 09:11] LABS: Absolute Lymphocyte Count 1.54 X10^3/uL (0.83-4.51); Absolute Neutrophil Count 2.6 X10^3/uL (2.0-7.7); Basophil# 0.02 X10^3/uL; Basophil% 0.4 % (0-1); Eosinophil# 0.14 X10^3/uL; Eosinophils% 2.9 % (0-5); Hematocrit 42.6 % (40-54); Hemoglobin 14.7 g/dL (13.0-16.5); Lymphocyte # 1.54 X10^3/ul (0.83-4.51); Mean Corp Hgb Conc 34.5 g/dL (32-36); Mean Corpuscular Hgb 30.4 pg (27.0-32.0); Mean Corpuscular Volume 88.2 fL (80-94); Mean Platelet Vol. 10.8 fl (6.2-12.0); Monocyte# 0.49 X10^3/uL; Monocyte% 10.2 % (0-10); NRBC Flagged by Analyzer 0 % (0-5); Neutrophil # 2.61 X10^3/uL (2.7-7.7); Neutrophil % 54.3 % (47-70); Platelet Count 137 K/mm3 (150-450); RBC Distribution Width CV 12.3 % (11.6-14.6); Red Blood Count 4.83 M/mm3 (4.6-6.2); White Blood Count 4.8 K/mm3 (4.4-11.0)
[2021-08-29 09:50] LABS: ALB/GLOB Ratio 1.1 RATIO (0.9-2.4); AST(SGOT) 23 U/L (15-37); Alanine Aminotransfer ALT/SGPT 31 U/L (16-61); Albumin, Serum 3.5 g/dL (3.2-5.0); Alkaline Phosphatase 83 U/L (45-117); Anion Gap 1 (5-15); BUN 20 mg/dL (7-18); BUN/Creat Ratio 15.5 RATIO (10-20); Calcium,Total 8.8 mg/dL (8.5-10.1); Chloride 108 mmol/L (98-107); Cholesterol 111 mg/dL (200); Creatinine, Serum 1.29 mg/dL (0.70-1.30); EST Glomerular Filtration Rate 58 mL/min (>60); Est Glom Filt Rate - Afr Amer 70 mL/min (>60); Globulin 3.3 g/dL (2.2-4.2); Glucose 103 mg/dL (74-106); High Density Lipoprotein 35 mg/dL; PSA,Total - Annual Screen 1.37 ng/mL (0.00-4.00); Potassium 4.4 mmol/L (3.5-5.1); Protein, Total 6.8 g/dL (6.4-8.2); Sodium Level 138 mmol/L (136-145); Triglycerides 91 mg/dL; Very Low Density Lipoprotein 18 mg/dL (5-40)
== END ==
PROVIDERS: PCP Family Medicine; Referring Provider Family Medicine; Visit Provider Family Medicine
DX: I10 Essential (primary) hypertension (principal); Z12.5 Encounter for screening for malignant neoplasm of prostate
CPT/HCPCS: 36415; 80053; 80061; 84153; 85025; G0103

== ENCOUNTER → 2022-10-05 | Outpatient (CLI) | payer MEDICARE, SELFPAY ==
[2022-10-05 09:30] LABS: Absolute Lymphocyte Count 1.94 X10^3/uL (0.83-4.51); Absolute Neutrophil Count 3.9 X10^3/uL (2.0-7.7); Basophil# 0.03 X10^3/uL; Basophil% 0.4 % (0-1); Eosinophil# 0.29 X10^3/uL; Eosinophils% 4.2 % (0-5); Hematocrit 43.6 % (40-54); Hemoglobin 14.5 g/dL (13.0-16.5); Lymphocyte # 1.94 X10^3/ul (0.83-4.51); Lymphocyte % 28.3 % (19-41); Mean Corp Hgb Conc 33.3 g/dL (32-36); Mean Corpuscular Hgb 30.3 pg (27.0-32.0); Mean Corpuscular Volume 91.2 fL (80-94); Monocyte# 0.67 X10^3/uL; Monocyte% 9.8 % (0-10); NRBC Flagged by Analyzer 0 % (0-5); Neutrophil # 3.92 X10^3/uL (2.7-7.7); Neutrophil % 57.2 % (47-70); Platelet Count 160 K/mm3 (150-450); RBC Distribution Width CV 12.5 % (11.6-14.6); Red Blood Count 4.78 M/mm3 (4.6-6.2); White Blood Count 6.9 K/mm3 (4.4-11.0)
[2022-10-05 09:48] LABS: ALB/GLOB Ratio 1.1 RATIO (0.9-2.4); AST(SGOT) 20 U/L (15-37); Alanine Aminotransfer ALT/SGPT 34 U/L (16-61); Albumin, Serum 3.6 g/dL (3.2-5.0); Alkaline Phosphatase 67 U/L (45-117); Anion Gap 1 (5-15); BUN 23 mg/dL (7-18); BUN/Creat Ratio 18.7 RATIO (10-20); Bilirubin, Direct 0.18 mg/dL (0.00-0.30); Calcium,Total 8.7 mg/dL (8.5-10.1); Chloride 107 mmol/L (98-107); Cholesterol 127 mg/dL (200); Creatinine, Serum 1.23 mg/dL (0.70-1.30); EST Glomerular Filtration Rate 61 mL/min (>60); Est Glom Filt Rate - Afr Amer 74 mL/min (>60); Globulin 3.3 g/dL (2.2-4.2); Glucose 111 mg/dL (74-106); High Density Lipoprotein 36 mg/dL; PSA,Total - Annual Screen 1.59 ng/mL (0.00-4.00); Potassium 4.6 mmol/L (3.5-5.1); Protein, Total 6.9 g/dL (6.4-8.2); Sodium Level 138 mmol/L (136-145); Triglycerides 102 mg/dL; Very Low Density Lipoprotein 20 mg/dL (5-40)
== END | disposition home or self-care (01) ==
LOC: LAB 09:12
PROVIDERS: PCP Family Medicine; Referring Provider Family Medicine; Visit Provider Family Medicine
DX: Z12.5 Encounter for screening for malignant neoplasm of prostate (principal); D69.6 Thrombocytopenia, unspecified; I10 Essential (primary) hypertension; I25.10 Atherosclerotic heart disease of native coronary artery without angina pectoris; E78.5 Hyperlipidemia, unspecified
CPT/HCPCS: 36415; 80053; 80061; 82248; 84153; 85025; G0103

== ENCOUNTER → 2022-11-13 | Outpatient (CLI) | payer MEDICARE, OTHER, SELFPAY ==
--- NOTE | 2022-11-13 13:07 | CDU_ITS ---
Reason For Study: Stenosis Rt. Velocities/BP Lt. Velocities/BP Prox CCA 106.9/22.3 cm/sec. Prox CCA 113.3/21.1 cm/sec. Mid CCA 99.2/21.2 cm/sec. Mid CCA 93.5/23.3 cm/sec. Dist CCA 79.5/19.0 cm/sec. Dist CCA 75.6/16.7 cm/sec. Prox ICA 61.1/18.2 cm/sec. Prox ICA 57.2/17.9 cm/sec. Mid ICA 77.6/24.8 cm/sec. Mid ICA 73.1/25.3 cm/sec. Dist ICA 65.5/22.6 cm/sec. Dist ICA 97.9/32.1 cm/sec. Rt. ICA/CCA = 0.8. Lt. ICA/CCA = 1.0. Prox ECA 132.6/12.1 cm/sec. Prox ECA 83.0/9.3 cm/sec. Rt. Vert. 49.0/16.0 cm/sec. Lt. Vert. 50.6/12.8 cm/sec. Right Extracranial There is homogeneous, smooth atherosclerotic plaque noted in the right common carotid artery. There is heterogeneous, irregular atherosclerotic plaque noted in the right internal carotid artery. There is intimal thickening but no significant atherosclerotic plaque noted in the right external carotid artery. Antegrade flow is noted in the right vertebral artery. Left Extracranial There is homogeneous, smooth atherosclerotic plaque noted in the left common carotid artery. There is heterogeneous, irregular atherosclerotic plaque noted in the left internal carotid artery. There is intimal thickening but no significant atherosclerotic plaque noted in the left external carotid artery. Antegrade flow is noted in the left vertebral artery. Procedure Carotid Duplex 35047. This is a Carotid Duplex examination using B-mode, color flow and specral Doppler. The exam was diagnostic. Exam performed in department. VL/Carotid Duplex Ultrasound Interpretation Summary Irregular plaque at the proximal right internal carotid artery with less than 5 0% stenosis Less than 50% stenosis right external carotid artery Irregular plaque at the proximal left internal carotid artery with less than 50 % stenosis Less than 50% stenosis left external carotid artery Patent and antegrade vertebral arteries bilaterally No advancement of disease from the previous screening examination done on 2021 Ordering Physician: Derik Aj Referring Physician: Damaris Wilhelm Performed By: Feliz Campbell RVT
== END | disposition home or self-care (01) ==
PROVIDERS: PCP Family Medicine; Referring Provider Internal Medicine Cardiovascular Disease; Visit Provider Internal Medicine Cardiovascular Disease
DX: I65.23 Occlusion and stenosis of bilateral carotid arteries (principal)
CPT/HCPCS: 93880

== ENCOUNTER → 2022-12-19 | Outpatient (CLI) | payer MEDICARE, OTHER, SELFPAY ==
[2022-12-19 09:46] LABS: Cholesterol 129 mg/dL (200); High Density Lipoprotein 34 mg/dL; Triglycerides 120 mg/dL; Very Low Density Lipoprotein 24 mg/dL (5-40)
== END | disposition home or self-care (01) ==
LOC: LAB 08:42
PROVIDERS: PCP Family Medicine; Referring Provider Dermatology Pediatric Dermatology; Visit Provider Dermatology Pediatric Dermatology
DX: E66.9 Obesity, unspecified (principal); L71.8 Other rosacea; L71.1 Rhinophyma; Z79.899 Other long term (current) drug therapy
CPT/HCPCS: 36415; 80061

== ENCOUNTER → 2023-10-05 | Outpatient (CLI) | payer MEDICARE, OTHER, SELFPAY ==
[2023-10-05 10:45] LABS: Absolute Neutrophil Count 3.7 X10^3/uL (2.0-7.7); Basophil# 0.02 X10^3/uL; Basophil% 0.3 % (0-1); Eosinophil# 0.14 X10^3/uL; Eosinophils% 2.2 % (0-5); Hemoglobin 14.9 g/dL (13.0-16.5); Lymphocyte % 30.2 % (19-41); Mean Corp Hgb Conc 33.9 g/dL (32-36); Mean Corpuscular Hgb 30.5 pg (27.0-32.0); Mean Platelet Vol. 10.7 fl (6.2-12.0); Monocyte# 0.52 X10^3/uL; Monocyte% 8.3 % (0-10); NRBC Flagged by Analyzer 0 % (0-5); Neutrophil # 3.68 X10^3/uL (2.7-7.7); Neutrophil % 58.5 % (47-70); Platelet Count 159 K/mm3 (150-450); RBC Distribution Width CV 12.5 % (11.6-14.6); RBC Distribution Width SD 41.1 fl (35.1-43.9); Red Blood Count 4.89 M/mm3 (4.6-6.2); White Blood Count 6.3 K/mm3 (4.4-11.0)
[2023-10-05 11:21] LABS: AST(SGOT) 24 U/L (15-37); Alanine Aminotransfer ALT/SGPT 32 U/L (16-61); Albumin, Serum 3.6 g/dL (3.2-5.0); Alkaline Phosphatase 85 U/L (45-117); Anion Gap 1 (5-15); BUN 19 mg/dL (7-18); BUN/Creat Ratio 14.7 RATIO (10-20); Calcium,Total 9.3 mg/dL (8.5-10.1); Chloride 106 mmol/L (98-107); Cholesterol 125 mg/dL (200); Creatinine, Serum 1.29 mg/dL (0.70-1.30); EST Glomerular Filtration Rate 58 mL/min (>60); Est Glom Filt Rate - Afr Amer 70 mL/min (>60); Globulin 3.5 g/dL (2.2-4.2); Glucose 95 mg/dL (74-106); High Density Lipoprotein 37 mg/dL; PSA,Total - Annual Screen 1.86 ng/mL (0.00-4.00); Potassium 4.8 mmol/L (3.5-5.1); Protein, Total 7.1 g/dL (6.4-8.2); Sodium Level 138 mmol/L (136-145); Triglycerides 119 mg/dL; Very Low Density Lipoprotein 24 mg/dL (5-40)
== END | disposition home or self-care (01) ==
LOC: LAB 08:43
PROVIDERS: PCP Family Medicine; Referring Provider Family Medicine; Visit Provider Family Medicine
DX: Z02.9 Encounter for administrative examinations, unspecified (principal); Z12.5 Encounter for screening for malignant neoplasm of prostate; E78.5 Hyperlipidemia, unspecified
CPT/HCPCS: 36415; 80053; 80061; 84153; 85025; G0103

== ENCOUNTER → 2024-02-21 | Outpatient (CLI) | payer MEDICARE, OTHER, SELFPAY ==
--- NOTE | 2024-02-21 12:52 | RAD_ITS ---
STUDY: X-RAY - LEFT KNEE REASON FOR EXAM: Male, 73 years old. PAIN TECHNIQUE: 3 views of the left knee. COMPARISON: None. FINDINGS: Normal visualized distal femur. Normal visualized proximal tibia and fibula. Normal proximal tibiofibular articulation. There is no demonstrated fracture. Normal medial femorotibial compartment. Normal lateral femorotibial compartment. Normal patellofemoral articulation. The soft tissue structures are unremarkable. RAD/Knee 3 Views IMPRESSION: Normal x-ray examination of the left knee. Electronically Signed: Juan A Tirado MD at 15:17 EDT ,
--- NOTE | 2024-02-21 12:53 | RAD_ITS ---
STUDY: X-RAY - RIGHT KNEE REASON FOR EXAM: Male, 73 years old. PAIN TECHNIQUE: 3 views of the right knee. COMPARISON: None. FINDINGS: Normal visualized distal femur. Normal visualized proximal tibia and fibula. Normal proximal tibiofibular articulation. There is no demonstrated fracture. Normal medial femorotibial compartment. Normal lateral femorotibial compartment. Normal patellofemoral articulation. There is a small joint effusion. The soft tissue structures are unremarkable. RAD/Knee 3 Views IMPRESSION: Small joint effusion. No demonstrated fracture. Electronically Signed: Juan A Tirado MD at 15:18 EDT ,
== END | disposition home or self-care (01) ==
LOC: MTRAD 12:48
PROVIDERS: PCP Family Medicine; Referring Provider Family Medicine; Visit Provider Family Medicine
DX: M25.569 Pain in unspecified knee (principal)
CPT/HCPCS: 73562

== ENCOUNTER 2024-04-03 10:00 | Outpatient (RCR) | payer MEDICARE, OTHER, SELFPAY ==
--- NOTE | 2024-03-06 11:29 | HP.PTEVAL_ITS ---
Patient's Visit Information Visit Information Visit Information: SVEN GORDON is a 73 year old M referred to Physical Therapy by Dr. Toby Gaviria MD with a diagnosis of Right Knee Pain. Date of Evaluation: 03/06/24 Physical Therapist: Vannesa Pinzon DPT Visit Plan Frequency: 2x /Week Duration: 4 Weeks Plan: Focus on LE and core strength/stabilization for possible medial meniscal tear. Subjective Subjective: A couple of weeks ago he was in his backyard and he started to feel some pain in the right knee- and then a week later he was doing stairs and had a painful sting on the inside of the knee- then he could barely put weight on it. He then went to the MD and he offered an injection and wanted him to to PT. He decided to do PT- instead of the injection. Its worse at night and when he puts pressure on it when he sleeps on the side. The pain is located right on the medial joint line. The pain is aggravated by turning and night time. The pain is described as stinging. He has a bunion issue in the right foot so if he walks a lot the pain comes from the bottom. He does have orthotics in his shoes. No hip pains- no joint issues before. He is pretty active. He works out here in the winter- in the summer he golfs and works out in the garden. He likes to be outside in his garden and they travel a lot. They were traveling in [place] in January and they did a lot of stairs. No MRI at this time but did have x-rays that showed no OA. No exercise program. Sleep: disturbed- if he takes a Tylenol it will not wake him up. It bothers him when he sits for awhile its painful when he goes to get back up. He always has an uncomfortable ache. He wears a sleeve and it helps a little bit. Patient feels that he is 40% back to normal. PMHx/Meds: see chart. Objective Objective: Posture: forward head, rounded shoulders- can correct with verbal cues but does not maintain Observation: severe pes planus and valgus at the knee right>left Gait: decreased stance on right LE- decreased heel strike HR/TR: able with UE A SLS: 10 seconds Stairs: asc/desc 8 reci- no HR- minor decreased control with desc Palpation: point tender to medial joint line ROM: 0-120 degrees with end range tenderness Strength: Core: fair minus, Hip: 4/5 throughout, Knee:Exten: 47 flexion Left:24 Right: 16 Flex: HS: severe, Gastroc: moderate Special Tests R Knee Tomas - Meniscus: Positive R Knee Valgus - MCL: Positive Balance/Special Test Scores Lower Extremity Functional Score: 59 Goals Goal 1:: Patient will be I with HEP and progression Goal Time Frame: 4-6 Weeks Goal 2:: Patient will ambulate >300 feet with a normalized gait pattern Goal Time Frame: 4-6 Weeks Goal 3:: Patient will demo equal strength bilateral LE Goal Time Frame: 4-6 Weeks Goal 4:: Patient will report no pain with full knee ROM Goal Time Frame: 4-6 Weeks Goal 5:: Patient will report 80% improvement Goal Time Frame: 4-6 Weeks Rehabilitation Potential Physical Therapy Diagnosis: Patient presents with hypomobility- he has decreased ROM, LE and core strength/stabilization, flex and muscular endurance leading to abnormal gait pattern and increased pain with ADL's Anticipated Interventions Therapeutic Exercise to Include: Strength training, Endurance training, Balance training, Coordination, Agility training, Body mechanics, Postural training, Flexibilty training, Gait and locomotor training, Neuromotor development, Dynam ic Lumbar Stabilization and Scapular Strength/Stabilization TENS: Yes Cryotherapy (ice pack, ice massage): Yes Thermo therapy (hot pack): Yes Ultrasound (thermal/non thermal): Yes Text: Thank you for the opportunity to evaluate your patient. For Medicare and Medicare HMO plans, please review the plan of care and approve it. It will need to be FAXED BACK to us at [phone] for Medicare purposes. For Medicare only, by signing this I certify the plan of care. Please let me know if there are questions or concerns regarding this plan of care. Physician Signature: Date:
--- NOTE | 2024-04-03 10:54 | HP.PTDCSUM ---
Discharge Summary D/C summary: It has been my pleasure to treat SVEN GORDON referred by Dr. Toby Gaviria MD, with the diagnosis of Right Knee Pain for a total of 8 visit(s). Discharge Date: 04/03/24 Please see the following information for a summary of their discharge status. Subjective Subjective: Last scheduled visit. Knee is much better since cortisone injection 3 weeks ago. Starting 4 days ago had no pain and felt just like left knee. Feels like motion is full. Activities are normal but tries to avoid pivotting and twisting. Played golf scramble. Pain Right Knee: Pain Intensity (Out of 10): 0 Overall Improvement % Improvement: 99 Objective Objective/Function: Full R knee ROM and strength compared to L and no antalgia in gait. 4+/5 strength B knee flex and ext. Pt confident that he can take it from here and will continue band strength and ROm at home. Goals Goal 1:: Patient will be I with HEP and progression Goal Progress: Goal Met Goal 2:: Patient will ambulate >300 feet with a normalized gait pattern Goal Progress: Goal Met Goal 3:: Patient will demo equal strength bilateral LE Goal Progress: Goal Met Goal 4:: Patient will report no pain with full knee ROM Goal Progress: Goal Met Goal 5:: Patient will report 80% improvement Goal Progress: Goal Met Plan Plan: d/c D/C Information d/c sentence: If there are questions or concerns regarding this patient's physical therapy, please feel free to call me at [phone]. Thank you for the referral of this patient. Sincerely, Alejo Aguirre, DPT, OCS, CSCS Balance/Gait/Functional tests Balance/Special Test Scores Lower Extremity Functional Score: 56 Improvement % Improvement: 99
== END 2024-04-03 13:26 | disposition home or self-care (01) ==
LOC: PT 10:00
PROVIDERS: PCP Family Medicine; Referring Provider Family Medicine; Visit Provider Family Medicine
DX: S83.91XD Sprain of unspecified site of right knee, subsequent encounter (principal)
CPT/HCPCS: 97110; 97162; 97530

== ENCOUNTER → 2024-04-08 | Outpatient (CLI) | payer MEDICARE, OTHER, SELFPAY ==
[2024-04-08 09:35] LABS: Color, Urine Yellow (Yellow); Glucose, Dipstick Normal (Normal); Ketone-Dipstick Negative (Negative); Leukocyte Esterase-Dipstick Negative /ul (Negative); Nitrite-Dipstick Negative (Negative); Occult Blood-Urine Negative /ul (Negative); Protein-Dipstick Negative (Negative); Specific Gravity, Urine 1.015 (1.002-1.030); Urine Bilirubin Dipstick Negative (Negative); Urine Clarity Clear (Clear); Urine Urobilinogen Normal (Normal)
[2024-04-08 09:36] LABS: Absolute Lymphocyte Count 1.95 X10^3/uL (0.83-4.51); Absolute Neutrophil Count 3.2 X10^3/uL (2.0-7.7); Basophil# 0.02 X10^3/uL; Basophil% 0.3 % (0-1); Eosinophil# 0.14 X10^3/uL; Eosinophils% 2.4 % (0-5); Hematocrit 42.9 % (40-54); Hemoglobin 14.6 g/dL (13.0-16.5); Lymphocyte # 1.95 X10^3/ul (0.83-4.51); Lymphocyte % 33.2 % (19-41); Mean Corpuscular Hgb 31.1 pg (27.0-32.0); Mean Corpuscular Volume 91.5 fL (80-94); Mean Platelet Vol. 11.1 fl (6.2-12.0); Monocyte# 0.54 X10^3/uL; Monocyte% 9.2 % (0-10); NRBC Flagged by Analyzer 0 % (0-5); Neutrophil # 3.21 X10^3/uL (2.7-7.7); Neutrophil % 54.6 % (47-70); Platelet Count 139 K/mm3 (150-450); RBC Distribution Width CV 12.8 % (11.6-14.6); Red Blood Count 4.69 M/mm3 (4.6-6.2); White Blood Count 5.9 K/mm3 (4.4-11.0)
[2024-04-08 09:42] LABS: Protein:Creat Ratio 91 mg/g CRE (0-200)
[2024-04-08 10:13] LABS: Anion Gap 5 (5-15); BUN 24 mg/dL (7-18); BUN/Creat Ratio 17.9 RATIO (10-20); Chloride 108 mmol/L (98-107); Cholesterol 120 mg/dL (200); Creatinine, Serum 1.34 mg/dL (0.70-1.30); EST Glomerular Filtration Rate 55 mL/min (>60); Est Glom Filt Rate - Afr Amer 67 mL/min (>60); Glucose 103 mg/dL (74-106); High Density Lipoprotein 40 mg/dL; Potassium 4.5 mmol/L (3.5-5.1); Sodium Level 137 mmol/L (136-145); Triglycerides 83 mg/dL; Very Low Density Lipoprotein 17 mg/dL (5-40)
[2024-04-08 10:33] LABS: Erythrocyte Sedimentation Rate 5 mm/hr (0-20)
== END | disposition home or self-care (01) ==
LOC: LAB 08:38
PROVIDERS: PCP Family Medicine; Referring Provider Family Medicine; Visit Provider Family Medicine
DX: R35.1 Nocturia (principal); I10 Essential (primary) hypertension; D69.6 Thrombocytopenia, unspecified
CPT/HCPCS: 80048; 80061; 81002; 82570; 84156; 85025; 85652

== ENCOUNTER → 2024-12-02 | Outpatient (CLI) | payer MEDICARE, OTHER, SELFPAY ==
[2024-12-02 15:00] LABS: Mucous, Urine 0 SEEN /hpf (<or=2+)
[2024-12-02 16:10] LABS: Absolute Lymphocyte Count 2.24 X10^3/uL (0.83-4.51); Absolute Neutrophil Count 3.7 X10^3/uL (2.0-7.7); Basophil# 0.02 X10^3/uL; Basophil% 0.3 % (0-1); Eosinophil# 0.13 X10^3/uL; Eosinophils% 1.9 % (0-5); Hematocrit 45.2 % (40-54); Hemoglobin 14.7 g/dL (13.0-16.5); Lymphocyte # 2.24 X10^3/ul (0.83-4.51); Lymphocyte % 32.7 % (19-41); Mean Corp Hgb Conc 32.5 g/dL (32-36); Mean Corpuscular Hgb 29.8 pg (27.0-32.0); Mean Corpuscular Volume 91.7 fL (80-94); Mean Platelet Vol. 11.3 fl (6.2-12.0); Monocyte# 0.72 X10^3/uL; Monocyte% 10.5 % (0-10); NRBC Flagged by Analyzer 0 % (0-5); Neutrophil # 3.73 X10^3/uL (2.7-7.7); Neutrophil % 54.3 % (47-70); Platelet Count 166 K/mm3 (150-450); RBC Distribution Width CV 12.7 % (11.6-14.6); RBC Distribution Width SD 42.5 fl (35.1-43.9); Red Blood Count 4.93 M/mm3 (4.6-6.2); White Blood Count 6.9 K/mm3 (4.4-11.0)
[2024-12-02 16:30] LABS: Hemoglobin A1c 5.5 % (3.8-5.6)
[2024-12-02 16:41] LABS: ALB/GLOB Ratio 1.3 RATIO (0.9-2.4); AST(SGOT) 31 U/L (15-37); Alanine Aminotransfer ALT/SGPT 35 U/L (16-61); Albumin, Serum 4.1 g/dL (3.2-5.0); Alkaline Phosphatase 80 U/L (45-117); Anion Gap 7 (5-15); BUN 20 mg/dL (7-18); BUN/Creat Ratio 16.8 RATIO (10-20); Calcium,Total 9.2 mg/dL (8.5-10.1); Chloride 104 mmol/L (98-107); Cholesterol 130 mg/dL (200); Creatinine, Serum 1.19 mg/dL (0.70-1.30); EST Glomerular Filtration Rate 63 mL/min (>60); Est Glom Filt Rate - Afr Amer 76 mL/min (>60); Globulin 3.2 g/dL (2.2-4.2); Glucose 79 mg/dL (74-106); High Density Lipoprotein 40 mg/dL; Magnesium 2.3 mg/dL (1.6-2.6); Potassium 4.8 mmol/L (3.5-5.1); Protein, Total 7.3 g/dL (6.4-8.2); Sodium Level 136 mmol/L (136-145); T4 Free Direct 1.19 ng/dL (0.76-1.46); Triglycerides 133 mg/dL; Very Low Density Lipoprotein 27 mg/dL (5-40)
[2024-12-02 17:58] LABS: Color, Urine Yellow (Yellow); Glucose, Dipstick Normal (Normal); Ketone-Dipstick Negative (Negative); Leukocyte Esterase-Dipstick Negative /ul (Negative); Nitrite-Dipstick Negative (Negative); Occult Blood-Urine Negative /ul (Negative); Protein-Dipstick Negative (Negative); Specific Gravity, Urine 1.015 (1.002-1.030); Urine Bilirubin Dipstick Negative (Negative); Urine Clarity Clear (Clear); Urine Urobilinogen Normal (Normal)
[2024-12-02 18:05] LABS: Protein, Urine (Random) < 6.0 mg/dL (<11.9); Protein:Creat Ratio 60 mg/g CRE (0-200)
[2024-12-02 18:53] LABS: Red Blood Cells-Urine 0-5 SEEN /hpf (0-5); Squamous Epithelial Cells - UA 0-5 SEEN /hpf (0-5); White Blood Cells 0-5 SEEN /hpf (0-5)
[2024-12-02 18:54] LABS: Bacteria RARE /hpf (None Seen)
[2024-12-04 16:09] LABS: Anti-Thyroglobulin AB < 1.0 IU/mL (0.0-0.9); Thyroglobulin, Serum Qt. 22.5 ng/mL (1.4-29.2); Thyroid Peroxidase AB < 9 IU/mL (0-34)
== END | disposition home or self-care (01) ==
LOC: MFPLAB 12:06
PROVIDERS: PCP Family Medicine; Referring Provider Family Medicine; Visit Provider Family Medicine
DX: I12.9 Hypertensive chronic kidney disease with stage 1 through stage 4 chronic kidney disease, or unspecified chronic kidney disease (principal); N18.30 Chronic kidney disease, stage 3 unspecified; R73.09 Other abnormal glucose
CPT/HCPCS: 80053; 80061; 81001; 82306; 82570; 83036; 83735; 83970; 84100; 84156; 84432; 84439; 84443; 85025; 86376; 86800

== ENCOUNTER → 2024-12-04 | Outpatient (CLI) | payer MEDICARE, OTHER, SELFPAY ==
--- NOTE | 2024-12-04 12:23 | US_ITS ---
PROCEDURE: ULTRASOUND THYROID REASON FOR EXAM: NODULE. TECHNIQUE: REAL-TIME GRAYSCALE AND COLOR-FLOW IMAGING WAS PERFORMED ALONG WITH ROUTINE IMAGE DOCUMENTATION. COMPARISON: None. FINDINGS: Right thyroid lobe measures 4.8 x 1.9 x 1.6 cm.. Left thyroid lobe measures 4.8 x 1.3 x 1.5 cm. Isthmus thickness is 0.3 cm.. Thyroid Size: Normal Background Echotexture: Homogeneous. Thyroid Nodules: Bilateral. RIGHT NODULE: Midpole, predominantly solid, 1.0 x 0.8 x 0.6 cm, well-circumscribed, wider than tall, hypoechoic, no calcifications, TR 4. NODULE: Inferior pole, predominantly solid, 0.9 x 0.8 x 0.6 cm, well- circumscribed, wider than tall, hypoechoic, no calcifications, TR 4. NODULE: Inferior pole, predominantly solid, 0.5 x 0.6 x 0.4 cm, well- circumscribed, wider than tall, hypoechoic, no calcifications, TR 4. LEFT NODULE: Midpole, mixed cystic and solid, 1.1 x 0.9 x 0.6 cm, well-circumscribed, wider than tall, anechoic and isoechoic, no calcifications, TR 3. NODULE: Superior pole, cystic, 0.4 x 0.4 x 0.3 cm, well-circumscribed, rounded, anechoic, TR 1. US/Thyroid IMPRESSION: 1. TR 4 category micronodules in the right thyroid lobe. No FNA warranted. 2. A TR 3 category micronodule in the left thyroid lobe. No FNA warranted. 3. Benign cystic nodule in the left superior pole. 4. Follow-up ultrasound recommended in 12 months. Reading Location: [facility]
== END | disposition home or self-care (01) ==
LOC: US 12:22
PROVIDERS: PCP Family Medicine; Referring Provider Family Medicine; Visit Provider Family Medicine
DX: E04.1 Nontoxic single thyroid nodule (principal)
CPT/HCPCS: 76536

== ENCOUNTER → 2024-12-25 | Outpatient (CLI) | payer MEDICARE, OTHER, SELFPAY ==
--- NOTE | 2024-12-25 07:54 | ECHOD_ITS ---
Reason For Study Reason For Study: MURMUR Procedure This was a 2D Doppler, Color Flow transthoracic echocardiogram. Exam performed in department. Left Ventricle Normal LV size. The estimated ejection fraction is 60 %. No evidence for diastolic dysfunction. No regional wall motion abnormalities noted. Right Ventricle Normal RV size. Normal systolic function. Atria The left and right atria are normal. No doppler evidence for ASD. Mitral Valve There is no mitral valve stenosis. Trivial mitral valve insufficiency. Tricuspid Valve There is no tricuspid stenosis. Trivial tricuspid valve insufficiency. Pulmonary artery systolic pressure is 25 mmHg. Aortic Valve Mild diffuse aortic valve thickening. Mild aortic stenosis. Trivial aortic valve insufficiency. Pulmonic Valve There is no pulmonic valvular stenosis. No pulmonic valve insufficiency. Great Vessels Normal sized aortic root. Pericardium/Pleural No pericardial effusion. MMode/2D Measurements & Calculations LVIDd: 4.8 cm IVSd: 0.98 cm LVOT diam: 2.1 cm LVIDs: 3.2 cm LVPWd: 1.2 cm LVOT area: 3.4 cm2 RVDd: 3.6 cm FS: 33.2 % Ao root diam: 3.1 cm LAV(MOD-bp): 54.7 ml LVAd ap4: 31.4 cm2 LAV(MOD-bp) Indexed: 27.3 ml/m2 LVLd ap4: 8.5 cm LAV(MOD-sp2): 47.7 ml EDV(MOD-sp4): 100.3 ml LAV(MOD-sp4): 56.3 ml EDV(sp4-el): 99.2 ml LVAs ap4: 18.9 cm2 LVLs ap4: 7.2 cm ESV(MOD-sp4): 45.9 ml ESV(sp4-el): 42.0 ml EF(MOD-sp4): 54.3 % EF(sp4-el): 57.6 % SV(MOD-sp4): 54.4 ml SV(sp4-el): 57.1 ml LA A4 area: 20.9 cm2 SI(MOD-sp4): 27.2 ml/m2 LA dimension(2D): 4.0 cm RA A4 area: 11.5 cm2 Time Measurements MV dec time: 0.20 sec Doppler Measurements & Calculations MV E max eric: 66.1 cm/sec Lat Peak E' Eric: 12.4 cm/sec Med Peak E' Eric: 7.9 cm/sec MV A max eric: 62.4 cm/sec E/E' lat: 5.3 E/E' med: 8.4 MV E/A: 1.1 MV V2 max: 82.1 cm/sec Ao V2 max: 238.0 cm/sec MV max P.7 mmHg MV dec slope: 338.2 cm/sec2 Ao max P.7 mmHg MV V2 mean: 44.5 cm/sec Ao V2 mean: 155.8 cm/sec MV mean P.96 mmHg Ao mean P.5 mmHg MV V2 VTI: 23.4 cm Ao V2 VTI: 52.0 cm AV (velocity ratio): 0.66 MVA(VTI): 5.1 cm2 KAITLIN(I,D): 2.3 cm2 KAITLIN(V,D): 2.0 cm2 LV V1 max: 137.8 cm/sec SV(LVOT): 118.5 ml PA V2 max: 123.6 cm/sec LV V1 max P.6 mmHg PA V2 mean: 80.1 cm/sec LV V1 mean P.1 mmHg LV V1 mean: 109.1 cm/sec LV V1 VTI: 34.4 cm ECHO/Echo Complete Interpretation Summary The estimated ejection fraction is 60 %. No evidence for diastolic dysfunction. Trivial mitral valve insufficiency. Trivial aortic valve insufficiency. Mild aortic stenosis. Ordering Physician: Toby Gaviria Referring Physician: Toby Gaviria Performed By: Aaliyah Choudhury RCS
--- NOTE | 2024-12-25 07:54 | CDU_ITS ---
Reason For Study Reason For Study: Stenosis Rt. Velocities/BP Lt. Velocities/BP Prox CCA 113.3/18.89 cm/sec. Prox CCA 130.2/29.8 cm/sec. Mid CCA 79.0/17.6 cm/sec. Mid CCA 99.2/24.3 cm/sec. Dist CCA 66.7/16.3 cm/sec. Dist CCA 60.5/17.6 cm/sec. Prox ICA 63.0/18.8 cm/sec. Prox ICA 56.4/20.1 cm/sec. Mid ICA 64.2/21.2 cm/sec. Mid ICA 79.5/28.9 cm/sec. Dist ICA 60.5/22.5 cm/sec. Dist ICA 82.8/30.0 cm/sec. Rt. ICA/CCA = 0.8. Lt. ICA/CCA = 0.8. Prox ECA 99.2/11.5 cm/sec. Prox ECA 91.2/6.5 cm/sec. Rt. Vert. 44.6/13.9 cm/sec. Lt. Vert. 49.8/13.5 cm/sec. Right Extracranial There is intimal thickening but no significant atherosclerotic plaque noted in the right common carotid artery. There is heterogeneous, irregular atherosclerotic plaque noted in the right internal carotid artery. There is intimal thickening but no significant atherosclerotic plaque noted in the right external carotid artery. Antegrade flow is noted in the right vertebral artery. Left Extracranial There is intimal thickening but no significant atherosclerotic plaque noted in the left common carotid artery. There is heterogeneous, irregular atherosclerotic plaque noted in the left internal carotid artery. There is intimal thickening but no significant atherosclerotic plaque noted in the left external carotid artery. Antegrade flow is noted in the left vertebral artery. Procedure Carotid Duplex [id number]. This is a Carotid Duplex examination using B-mode, color flow and specral Doppler. Exam performed in department. VL/Carotid Duplex Ultrasound Interpretation Summary Mild (<50%) stenosis right extracranial internal carotid. Mild (<50%) stenosis left extracranial internal carotid. Patent and antegrade vertebrals bilaterally. Ordering Physician: Toby Gaviria Referring Physician: Toby Gaviria Performed By: Renetta Rahman RVT and Student
== END | disposition home or self-care (01) ==
LOC: CVS 07:54
PROVIDERS: PCP Family Medicine; Referring Provider Family Medicine; Visit Provider Family Medicine
DX: R01.1 Cardiac murmur, unspecified (principal); I65.23 Occlusion and stenosis of bilateral carotid arteries
CPT/HCPCS: 93306; 93880

== ENCOUNTER → 2025-04-27 | Outpatient (CLI) | payer MEDICARE, OTHER, SELFPAY ==
--- NOTE | 2025-04-27 08:50 | EKG12_ITS ---
Test Reason : PREOP Blood Pressure : */* mmHG Vent. Rate : 57 BPM Atrial Rate : 57 BPM P-R Int : 214 ms QRS Dur : 90 ms QT Int : 396 ms P-R-T Axes : 41 31 25 degrees QTcB Int : 385 ms Sinus bradycardia with sinus arrhythmia with 1st degree A-V block Otherwise normal ECG Confirmed by Andrew Hopper [id number]), international editorial producer JOSÉ YEH ([id number]) on 04/27/2025 1:12:19 PM Also confirmed by Andrew Hopper ([id number]), international editorial producer JOSÉ YEH ([id number]) on 04/28/2025 11:10:42 AM Referred By: Alex Sherwood Confirmed By: Andrew Hopper
[2025-04-27 09:56] LABS: Anion Gap 10 (5-15); BUN 23 mg/dL (4-19); BUN/Creat Ratio 17.0 RATIO (10-20); Calcium,Total 9.1 mg/dL (7.6-11.0); Carbon Dioxide 22.1 mmol/L (21.0-32.0); Chloride 105 mmol/L (98-108); Glucose 159 mg/dL (70-99); Potassium 4.6 mmol/L (3.3-5.1)
[2025-04-27 10:57] LABS: White Blood Count 5.0 K/mm3 (4.4-11.0)
[2025-04-27 10:58] LABS: Hematocrit 41.5 % (40-54); Hemoglobin 14.3 g/dL (13.0-16.5); Mean Corp Hgb Conc 34.5 g/dL (32-36); Mean Corpuscular Volume 90.6 fL (80-94); Mean Platelet Vol. 10.8 fl (6.2-12.0); Platelet Count 145 K/mm3 (150-450); RBC Distribution Width CV 12.7 % (11.6-14.6); RBC Distribution Width SD 41.4 fl (35.1-43.9); Red Blood Count 4.58 M/mm3 (4.6-6.2)
== END | disposition home or self-care (01) ==
LOC: PSN 08:46
PROVIDERS: PCP Family Medicine; Referring Provider Otolaryngology; Visit Provider Otolaryngology
DX: Z01.812 Encounter for preprocedural laboratory examination (principal); Z01.810 Encounter for preprocedural cardiovascular examination
CPT/HCPCS: 36415; 80048; 85027; 93005

== ENCOUNTER 2025-05-05 09:08 | Outpatient (CLI) | payer MEDICARE, OTHER, SELFPAY ==
[2025-05-05 09:11] LABS: Mucous, Urine 0 SEEN /hpf (<or=2+); Red Blood Cells-Urine 0 SEEN /hpf (0-5); Squamous Epithelial Cells - UA 0 SEEN /hpf (0-5)
--- NOTE | 2025-05-05 10:07 | RAD_ITS ---
EXAM: XR Bilateral Hips With Pelvis When Performed, 2 or 3 Views CLINICAL INDICATION: HIP PAIN, LEFT TECHNIQUE: Three or four views of the bilateral hips with pelvis when performed. COMPARISON: No relevant prior studies available. 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 No acute fracture. No dislocation. SOFT TISSUES: Unremarkable. RAD/Hips B/L min 2 views w/ Pelvis IMPRESSION: Degenerative changes as above. Reading Location: [id number]
[2025-05-05 10:09] LABS: Hematocrit 41.5 % (40-54); Hemoglobin 14.0 g/dL (13.0-16.5); Immature Granulocytes Count 0.010 X10^3/uL (0.0-0.0); Mean Corp Hgb Conc 33.7 g/dL (32-36); Mean Corpuscular Volume 90.6 fL (80-94); Mean Platelet Vol. 11.1 fl (6.2-12.0); NRBC Flagged by Analyzer 0 % (0-5); Platelet Count 132 K/mm3 (150-450); RBC Distribution Width CV 12.5 % (11.6-14.6); RBC Distribution Width SD 40.9 fl (35.1-43.9); Red Blood Count 4.58 M/mm3 (4.6-6.2); White Blood Count 5.4 K/mm3 (4.4-11.0)
[2025-05-05 10:37] LABS: Color, Urine Yellow (Yellow); Glucose, Dipstick Normal (Normal); Ketone-Dipstick Negative (Negative); Leukocyte Esterase-Dipstick Negative /ul (Negative); Nitrite-Dipstick Negative (Negative); Occult Blood-Urine 10 /ul (Negative); Protein-Dipstick 30 mg/dl (Negative); Specific Gravity, Urine 1.015 (1.002-1.030); Urine Bilirubin Dipstick Negative (Negative)
[2025-05-05 10:42] LABS: Creatinine, Urine (random) 188.00 mg/dL (39.00-259.00); Protein, Urine (Random) 11.3 mg/dL (0.0-12.0); Protein:Creat Ratio 60 mg/g CRE (0-200)
[2025-05-05 10:59] LABS: AST(SGOT) 28 U/L (<=37); Alanine Aminotransfer ALT/SGPT 21 U/L (<=46); Albumin, Serum 4.1 g/dL (3.4-4.8); Alkaline Phosphatase 77 U/L (40-129); Anion Gap 10 (5-15); BUN 25 mg/dL (4-19); BUN/Creat Ratio 18.8 RATIO (10-20); Calcium,Total 9.3 mg/dL (7.6-11.0); Carbon Dioxide 20.8 mmol/L (21.0-32.0); Chloride 106 mmol/L (98-108); Cholesterol 117 mg/dL (<=200); Globulin 2.6 g/dL (2.2-4.2); Glucose 108 mg/dL (70-99); Low Density Lipoprotein Calc. 61 mg/dL; Magnesium 2.3 mg/dL (1.5-2.2); Potassium 4.6 mmol/L (3.3-5.1); Triglycerides 98 mg/dL; Very Low Density Lipoprotein 20 mg/dL (5-40); Vitamin D,25 Hydroxy 31.3 ng/mL (30-100); cholesterol:hdl ratio screen 3.22
--- OUTSIDE RECORDS SUMMARY | 2025-05-05 18:20 | XMS RPT_ITS | CCD ---
Author Organization [facility] Care Team Providers Care Equipment Validation Engineer Name Role Phone Dr. Derik Aj Attending Provider [phone] DO Damaris Wilhelm Primary Care Provider [phone] DO Damaris Wilhelm Referring Provider [phone] Tony Morris Attending Provider Dr. Derik Aj Attending Provider [phone] DO Damaris Wilhelm Primary Care Provider [phone] DO Damaris Wilhelm Referring Provider [phone] Tony Morris Attending Provider Dr. Derik Aj Referring Provider [phone] Everette BYRNES, Dr. Toby Contreras Primary Care Provider Everette BYRNES, Dr. Toby Contreras Attending Provider [phone] Dr. Toby Gaviria MD Referring Provider [phone] Dr. Alejo Jj MD Attending Provider Abner BYRNES, Dr. Liang Attending Provider Dr. Mare Lyons MD Referring Provider Dr. Derik Aj MD Attending Provider [phone] Toby Gaviria MD Primary Care Provider [phone] Dr. Alex Sherwood MD Attending Provider [phone] Alex Sherwood MD Referring Provider Toby Gaviria Attending Unavailable Toby Gaviria Referring Unavailable Toby Gaviria Primary Care Unavailable Toby Gaviria Referring Unavailable Toby Gaviria Primary Care Unavailable Toby Gaviria Attending Unavailable Alex Sherwood Attending Unavailable Alex Sherwood Referring Unavailable Tboy Gaviria Primary Care Unavailable Toby Gaviria Attending Unavailable Toby Gaviria Referring Unavailable Toby Gaviria Primary Care Unavailable Alex Sherwood Referring Unavailable Toby Gaviria Primary Care Unavailable Andrew Hopper Attending Unavailable Toby Gaviria Primary Care Unavailable Azul Levine Attending UnavailToby Whittington Referring Unavailable Toby Gaviria Primary Care Unavailable Alejo Jj Attending Unavailable Derik Aj Attending Unavailable Mare Lyons Referring Unavailable Toby Gaviria Primary Care Unavailable Medications Current Medications Medication Drug Class(es) Dates Sig (Normalized) Sig (Original) amLODIPine 5 mg oral tablet (20 sources) Dihydropyridine Calcium Channel Nader Start: 09-07-2020 take 1 tablet by mouth once daily in the evening Amlodipine 5 mg tablet Active 5 mg PO EVERY EVENING September 07, 2020 3:26pm Start: 02-13-2020 End: 09-07-2020 take 2.5 mg by mouth twice daily Amlodipine 5 mg tablet Discontinued 2.5 mg PO TWICE A DAY 90 February 13, 2020 4:39pm September 07, 2020 3:29pm Start: 02-13-2020 End: 09-07-2020 take 2.5 mg by mouth twice daily Amlodipine Discontinued 2.5 MG PO TWICE A DAY February 13, 2020 3:39pm September 07, 2020 2:29pm Start: 01-16-2020 End: 02-13-2020 take 1 tablet by mouth once daily in the evening Amlodipine 5 mg tablet Discontinued 5 mg PO EVERY EVENING 90 February 11, 2020 9:44am February 13, 2020 4:39pm aspirin 81 mg chewable tablet (14 sources) Platelet Aggregation Inhibitor, Nonsteroidal Anti-inflammatory Drug Start: 01-06-2020 take 1 tablet by mouth once daily Aspirin 81 MG tablet,chewable Active 81 mg PO DAILY January 06, 2020 12:00am WindPipe Start: 02-18-2015 End: 01-20-2019 take 1 tablet by mouth once daily Aspirin 81 MG tablet,chewable Discontinued 81 mg PO DAILY@0800 February 18, 2015 12:00am January 20, 2019 12:48pm atorvastatin 10 mg oral tablet (7 sources) HMG-CoA Reductase Inhibitor Start: 09-07-2020 take 1 tablet by mouth at bedtime Atorvastatin 10 mg tablet Active 10 mg PO AT BEDTIME September 07, 2020 1:00am lisinopril 5 mg oral tablet (20 sources) Angiotensin Converting Enzyme Inhibitor Start: 02-13-2020 take 1 tablet by mouth twice daily Lisinopril 5 mg tablet Active 5 mg PO TWICE A DAY 90 3 February 13, 2020 4:36pm blood pressure Start: 02-11-2020 End: 02-13-2020 take 1 tablet by mouth once daily Lisinopril 5 mg tablet Discontinued 5 mg PO DAILY 90 3 February 11, 2020 9:44am February 13, 2020 4:37pm blood pressure Start: 12-23-2018 End: 02-11-2020 take 2 tablets by mouth twice daily Lisinopril 5 mg tablet Discontinued 10 mg PO TWICE A DAY December 23, 2018 12:00am February 11, 2020 9:14am blood pressure Start: 12-23-2018 End: 02-11-2020 take 10 mg by mouth twice daily Lisinopril Discontinue d 10 MG PO TWICE A DAY December 22, 2018 11:00pm February 11, 2020 8:14am Uynnjxnm-Rww-Wj-Lycopen-Lute in (Centrum Silver Ultra Men's) 300-600-300 mcg tablet (4 sources) Start: 12-23-2018 take 300-600 tablets by mouth once daily Wvxrfxeg-Tmd-Pb-Lycopen-Lutein (Centrum Silver Ultra Men's) 300-600-300 mcg tablet Active 1 TABLET PO DAILY December 23, 2018 12:00am Start: 12-23-2018 take 300-600 tablets by mouth once daily Wznnqimh-Qtv-Je-Lycopen-Lutein (Centrum Silver Ultra Men's) 300-600-300 mcg tablet Active 1 TABLET PO DAILY December 22, 2018 11:00pm Ef-Uxw-Mjkcn-J9-Owboabm-Kewd in (Centrum Silver Ultra Men's) 300-600-300 mcg tablet (3 sources) Start: 12-23-2018 Fu-Rxe-Duxqg-W2-Fcxhztl-Mrsx in (Centrum Silver Ultra Men's) 300-600-300 mcg tablet Active 1 {tbl} PO DAILY December 23, 2018 12:00am vitamin Start: 12-23-2018 Lc-Kaw-Unhvt-K 9-Zgcakhg-Vphkwa (Centrum Silver Ultra Men's) 300-600-300 mcg tablet Active 1 {tbl} PO DAILY December 23, 2018 12:00am Start: 12-23-2018 take 300-600 tablets by mouth once daily Hy-Qxh-Xmcia-M1-Ktwegbm-Piviue (Centrum Silver Ultra Men's) 300-600-300 mcg tablet Active 1 TABLET PO DAILY December 22, 2018 11:00pm omeprazole 20 mg delayed release oral capsule (7 sources) Proton Pump Inhibitor Start: 02-16-2020 take 1 capsule by mouth once daily Omeprazole 20 mg capsule,delayed release(DR/EC) Active 20 mg PO DAILY February 16, 2020 12:00am tadalafil 10 mg oral tablet (5 sources) Phosphodiesterase 5 Inhibitor Start: 11-09-2022 take 1 tablet by mouth every twenty-four hours Tadalafil (Cialis) 10 mg tablet Active 10 mg PO DAILY as needed for sexual activity 30 November 09, 2022 1:00am administer approximately 30min before sexual activity; do not use more than 1 dose per 24hrs Completed/Discontinued Medications Medication Drug Class(es) Dates Sig (Normalized) Sig (Original) acetaminophen 325 mg / oxyCODONE hydrochloride 5 mg oral tablet (7 sources) Opioid Agonist Start: 01-20-2019 End: 01-25-2019 Oxycodone-Acetaminoph en 1 TABLET tablet Discontinued 1 {tbl} PO 4 TIMES DAILY NEEDED as needed for Pain 20 5 0 January 20, 2019 12:48pm January 24, 2019 12:00am January 25, 2019 12:08am Other acute postprocedural pain 20 tabs (twenty) Start: 01-20-2019 End: 01-25-2019 take 1 tablet by mouth four times daily as needed Oxycodone-Acetaminophen Discontinued 1 TABLET PO 4 TIMES DAILY NEEDED 20 5 January 20, 2019 11:48am January 24, 2019 11:08pm 20 tabs (twenty) bisoprolol fumarate 5 mg oral tablet (7 sources) beta-Adrenergic Nader Start: 01-16-2020 End: 01-16-2020 take 1 tablet by mouth once daily Bisoprolol Fumarate 5 MG tablet Discontinued 5 mg PO DAILY January 16, 2020 12:00am January 16, 2020 11:42am takes medication at 1800 daliy cholecalciferol 0.05 mg oral capsule (7 sources) Vitamin D Start: 01-16-2019 End: 09-07-2020 take 1 capsule by mouth once daily Cholecalciferol (Vitamin D3) 2,000 UNIT capsule Discontinued 2000 U PO DAILY January 16, 2019 12:00am September 07, 2020 3:29pm vitamin clindamycin 300 mg oral capsule (7 sources) Lincosamide Antibacterial Start: 01-20-2019 End: 01-27-2019 take 1 capsule by mouth three times daily Clindamycin Hcl 300 MG capsule Discontinued 300 mg PO THREE TIMES A DAY 15 0 January 20, 2019 12:00am January 27, 2019 2:29pm clopidogrel 75 mg oral tablet (7 sources) P2Y12 Platelet Inhibitor Start: 02-11-2020 End: 09-07-2020 take 1 tablet by mouth once daily Clopidogrel (Plavix) 75 mg tablet Discontinued 75 mg PO DAILY 30 3 February 11, 2020 12:00am September 07, 2020 3:29pm ISOtretinoin 30 mg oral capsule (5 sources) Retinoid Start: 11-09-2022 End: 12-27-2023 take 1 capsule by mouth every week at mealtime Isotretinoin (Zenatane) 30 mg capsule Discontinued 30 mg PO .3x weekly November 09, 2022 1:00am December 27, 2023 11:05am must administer with a meal/food nitroglycerin 0.4 mg sublingual tablet (14 sources) Nitrate Vasodilator Start: 02-13-2020 End: 09-07-2021 Nitroglycerin 0.4 mg tablet, sublingual Discontinued 0.4 mg SL every 5 to 15 minutes 06 01February 13, 2020 4:49pm September 07, 2021 3:55pm as a single dose; administer 5-10 minutes before situation known to precipitate angina attack Start: 02-13-2020 End: 09-07-2021 Nitroglycerin Discontinued 0 .4 MG SL every 5 to 15 minutes February 13, 2020 3:49pm September 07, 2021 2:55pm as a single dose; administer 5-10 minutes before situation known to precipitate angina attack Dodge-3 Fatty Acids (Fish Oil Concentrate) 1,000 mg capsule (7 sources) Start: 09-07-2020 End: 02-19-2025 take 1 capsule by mouth once daily Dodge-3 Fatty Acids (Fish Oil Concentrate) 1,000 mg capsule Discontinued 1000 mg PO DAILY September 07, 2020 1:00am February 19, 2025 10:52am Start: 09-07-2020 take 1 capsule by mo uth once daily Dodge-3 Fatty Acids (Fish Oil Concentrate) 1,000 mg capsule Active 1000 mg PO DAILY September 07, 2020 1:00am Start: 09-07-2020 take 1 capsule by mo uth once daily Dodge-3 Fatty Acids (Fish Oil Concentrate) 1,000 mg capsule Active 1000 MG PO DAILY September 07, 2020 1:00am Start: 09-07-2020 take 1 capsule by mo uth once daily Dodge-3 Fatty Acids (Fish Oil Concentrate) 1,000 mg capsule Active 1000 MG PO DAILY September 07, 2020 12:00am Problems Active Problems Problem Classification Problem Date Documented Date Episodic/Chronic Cardiac dysrhythmias (20 sources) Palpitations; Translations: [Palpitations] 01-09-2020 Episodic Coronary atherosclerosis and other heart disease (10 sources) Non-obstructive atherosclerosis of coronary artery; Translations: [Atherosclerotic heart disease of [place] coronary artery without angina pectoris] 09-06-2020 Chronic Essential hypertension (10 sources) Essential hypertension; Translations: [Essential (primary) hypertension] 09-06-2020 Chronic Heart valve disorders (2 sources) Aortic valve stenosis; Translations: [Nonrheumatic aortic (valve) stenosis] 02-19-2025 Chronic Hypertension with complications and secondary hypertension (1 source) Hypertensive chronic kidney disease with stage 1 through stage 4 chronic kidney disease, or unspecified chronic kidney disease; Translations: [Hypertensive chronic kidney disease with stage 1 through stage 4 chronic kidney disease, or unspecified chronic kidney disease] Onset: 12-17-2024 Chronic Nonspecific chest pain (7 sources) Chest pain; Translations: [Chest pain, unspecified] 09-06-2020 Episodic Other circulatory disease (5 sources) Carotid bruit; Translations: [Other specified symptoms and signs involving the circulatory and respiratory systems] 11-09-2022 Episodic Other circulatory disease (2 sources) Other specified symptoms and signs involving the circulatory and respiratory systems; Translations: [Other symptoms involving cardiovascular system] 11-09-2022 Episodic Residual codes; unclassified (1 source) Obstructive sleep apnea syndrome; Translations: [Obstructive sleep apnea (adult) (pediatric)] 02-19-2025 Chronic Thyroid disorders (2 sources) Thyroid nodule; Translations: [Nontoxic single thyroid nodule] Onset: 12-18-2024 02-19-2025 Chronic Past or Other Problems Problem Classification Problem Date Documented Da te Episodic/Chronic Heart valve disorders (1 source) Cardiac murmur, unspecified; Translations: [Cardiac murmur, unspecified] Onset: 01-05-2025 Episodic Results Test Name Value Interpretation Reference Range Facility Electrocardiogram reportOrde red By: Andrew Hopper on 04-28-[address] [facility] [address] [place] [address] 12 Lead EKG 04/27/25 0855 MR#: [id number] Acct: [id number] Name: SVEN GORDON Rep #:[id number] : 1950 74 From: Andrew lewis MD Attending Dr: Dr. Alex Sherwood MD Status: REG CLI Ordering Dr: Alex Sherwood MD Date: Location: [facility] Sex: M C Admitted: Test Reason : PREOP Blood Pressure : */* mmHG Vent. Rate : 57 BPM Atrial Rate : 57 BPM P-R Int : 214 ms QRS Dur : 90 ms QT Int : 396 ms P-R-T Axes : 41 31 25 degrees QTcB Int : 385 ms Sinus bradycardia with sinus arrhythmia with 1st degree A-V block Otherwise normal ECG Confirmed by Andrew Hopper ([id number]), editorial clerk JOSÉ YEH ([id number]) on 04/27/2025 1:12:19 PM Also confirmed by Andrew Hopper ([id number]), editorial clerk JOSÉ YEH ([id number]) on 04/28/2025 11:10:42 AM Referred By: Alex Sherwood Confirmed By: Andrew Hopper 04/28/25 1110 Date _ Andrew Hopper MD CC: Dr. Toby Gaviria MD; Dr. Alex Sherwood MD ~ Signed [facility] Other Phone: 12 Lead EKGon 04-27-[address] [facility] [address] [place] [address] 12 Lead EKG 04/27/25 0855 MR#: [id number] Acct: [id number] Name: SVEN GORDON Rep #: [id number] : 1950 74 From: Andrew Hopper MD Attending Dr: Dr. Alex Sherwood MD Status: REG CLI Ordering Dr: Alex Sherwood MD Date: 04/27/25 Location: N Sex: M C Admitted: Test Reason : PREOP Blood Pressure : */* mmHG Vent. Rate : 57 BPM Atrial Rate : 57 BPM P-R Int : 214 ms QRS Dur : 90 ms QT Int : 396 ms P-R-T Axes : 41 31 25 degrees QTcB Int : 385 ms Sinus bradycardia with sinus arrhythmia with 1st degree A-V block Otherwise normal ECG Confirmed by Andrew Hopper ([id number]), editorial clerk JOSÉ YEH ([id number]) on 04/27/2025 1:12:19 PM Also confirmed by Andrew Hopper ([id number]), editorial clerk JOSÉ YEH ([id number]) on 04/28/2025 11:10:42 AM Referred By: Alex Sherwood Confirmed By: Andrew Hopper 04/28/25 1110 Date Andrew Hopper MD CC: Dr. Toby Gaviria MD; Dr. Alex Sherwood MD Signed Normal [facility] Anion gap in Serum or Plasma Ordered By: Alex Sherwood on 04-27-2025 Anion gap [Moles/Vol] 10 mmol/L 02-26 [facility] BUN/creatinine ratioOrdered By: Alex Sherwood on 04-27-2025 Urea nitrogen/Creatinine [Mass ratio] 17.0 mg/mg 08-03 [facility] Basic Metabolic Profile (BMP )on 04-27-2025 BUN/CRE 17.0 RATIO Normal 08-03 [facility] Comment on above: Performed By: #### L 500.2500, L100.0500 #### [facility] [address] [place], [address] Calcium [Mass/Vol] 9.1 mg/dL Normal 7.6-11.0 [facility] Comment on above: Performed By: #### L 500.2500, L100.0500 #### [facility] [address] [place], [address] Chloride [Moles/Vol] 105 mmol/L Normal 98-108 [facility] Comment on above: Performed By: #### L 500.2500, L100.0500 #### [facility] [address] [place], [address] CO2 [Moles/Vol] 22.1 mmol/L Normal 21.0-32.0 [facility] Comment on above: Performed By: #### L 500.2500, L100.0500 #### [facility] [address] [place], [address] Creatinine [Mass/Vol] 1.32 mg/dL High 0.70-1.20 [facility] Comment on above: Performed By: #### L 500.2500, L100.0500 #### [facility] [address] [place], [address] GAP 10 Normal 5-15 [facility] Comment on above: Performed By: #### L 500.2500, L100.0500 #### [facility] [address] [place], [address] GFR/1.73 sq M.predicted among non-blacks MDRD (S/P/Bld) [Vol rate/Area] 56 mL/min/{1.73_m2} Low >60 [facility] Comment on above: Result Comment: mL/m in/1.73m2 CKD-EPI Creatinine Equation (2020) Performed By: #### L 500.2500, L100.0500 #### [facility] [address] [place], [address] Glucose [Mass/Vol] 159 mg/dL High 70-99 [facility] Comment on above: Performed By: #### L 500.2500, L100.0500 #### [facility] [address] [place], [address] Potassium [Moles/Vol] 4.6 mmol/L Normal 3.3-5.1 [facility] Comment on above: Result Comment: Hemo lysis present, Results??could be affected. ?? Performed By: #### L 500.2500, L100.0500 #### [facility] [address] [place], [address] Sodium [Moles/Vol] 138 mmol/L Normal 133-145 [facility] Comment on above: Performed By: #### L 500.2500, L100.0500 #### [facility] [address] [place], [address] Urea nitrogen [Mass/Vol] 23 mg/dL High 4-19 [facility] Comment on above: Performed By: #### L 500.2500, L100.0500 #### [facility] [address] [place], [address] Blood platelets count (numbe r/volume)Ordered By: Alex Sherwood on 04-27-2025 Platelets (Bld) [#/Vol] 145 10*3/uL Low 150-450 [facility] CBC-Complete Blood Cnt No Di ffon 04-27-2025 Erythrocyte distribution width (RBC) [Ratio] 12.7 % Normal 11.6-14.6 [facility] Comment on above: Performed By: #### L 500.2500, L100.0500 #### [facility] [address] [place], [address] Hematocrit (Bld) [Volume fraction] 41.5 % Normal 40-54 [facility] Comment on above: Performed By: #### L 500.2500, L100.0500 #### [facility] [address] [place], [address] Hemoglobin (Bld) [Mass/Vol] 14.3 g/dL Normal 13.0-16.5 [facility] Comment on above: Performed By: #### L 500.2500, L100.0500 #### [facility] [address] [place], [address] MCH (RBC) [Entitic mass] 31.2 pg Normal 27.0-32.0 [facility] Comment on above: Performed By: #### L 500.2500, L100.0500 #### [facility] [address] [place], [address] MCHC (RBC) [Mass/Vol] 34.5 g/dL Normal 32-36 [facility] Comment on above: Performed By: #### L 500.2500, L100.0500 #### [facility] [address] [place], [address] MCV (RBC) [Entitic vol] 90.6 fL Normal 80-94 [facility] Comment on above: Performed By: #### L 500.2500, L100.0500 #### [facility] [address] [place], [address] Platelet mean volume (Bld) [Entitic vol] 10.8 fL Normal 6.2-12.0 [facility] Comment on above: Performed By: #### L 500.2500, L100.0500 #### [facility] [address] [place], [address] Platelets (Bld) [#/Vol] 145 10*3/uL Low 150-450 [facility] Comment on above: Performed By: #### L 500.2500, L100.0500 #### [facility] [address] [place], [address] RBC (Bld) [#/Vol] 4.58 10*6/uL Low 4.6-6.2 [facility] Comment on above: Performed By: #### L 500.2500, L100.0500 #### [facility] [address] [place], [address] RDW SD 41.4 fl Normal 35.1-43.9 [facility] Comment on above: Performed By: #### L 500.2500, L100.0500 #### [facility] [address] [place], [address] WBC (Bld) [#/Vol] 5.0 10*3/uL Normal 4.4-11.0 [facility] Comment on above: Performed By: #### L 500.2500, L100.0500 #### [facility] [address] [place], [address] Carbon dioxide, total [Moles /volume] in Central venous bloodOrdered By: Alex Sherwood on 04-27-2025 CO2 [Moles/Vol] 22.1 mmol/L 21.0-32.0 [facility] Chloride assayOrdered By: Martinez Sherwood on 04-27-2025 Chloride [Moles/Vol] 105 mmol/L 98-108 [facility] Erythrocyte distribution wid th ratioOrdered By: Alex Sherwood on 04-27-2025 Erythrocyte distribution width (RBC) [Ratio] 12.7 % 11.6-14.6 [facility] Glomerular filtration rate ( GFR) estimation/1.73 sq m using serum, plasma, or whole bOrdered By: Alex Sherwood on 04-27-2025 GFR/1.73 sq M.predicted among non-blacks MDRD (S/P/Bld) [Vol rate/Area] 56 mL/min/{1.73_m2} Low >60 [facility] Comment on above: mL/min/1.73m2 CKD-EP I Creatinine Equation (2020) Hematocrit Auto (Bld) [Volum e fraction]Ordered By: Alex Sherwood on 04-27-2025 Hematocrit (Bld) [Volume fraction] 41.5 % 40-54 [facility] Hemoglobin measurementOrdere d By: Alex Sherwood on 04-27-2025 Hemoglobin (Bld) [Mass/Vol] 14.3 g/dL 13.0-16.5 [facility] MCV (mean corpuscular volume ) determinationOrdered By: Alex Sherwood on 04-27-2025 MCV (RBC) [Entitic vol] 90.6 fL 80-94 [facility] Mean corpuscular hemoglobin (MCH) determinationOrdered By: Alex Sherwood on 04-27-2025 MCH (RBC) [Entitic mass] 31.2 pg 27.0-32.0 [facility] Mean corpuscular hemoglobin concentration (MCHC) determinationOrdered By: Alex Sherwood on 04-27-2025 MCHC (RBC) [Mass/Vol] 34.5 g/dL 32-36 [facility] Mean platelet volume determi nationOrdered By: Alex Sherwood on 04-27-2025 Platelet mean volume (Bld) [Entitic vol] 10.8 fL 6.2-12.0 [facility] Potassium measurement (mass/ volume)Ordered By: Alex Sherwood on 04-27-2025 Potassium (Unsp spec) [Mass/Vol] 4.6 mmol/L 3.3-5.1 [facility] Comment on above: Hemolysis present, R esults could be affected. RBC Auto (Bld) [#/Vol]Ordere d By: Alex Sherwood on 04-27-2025 RBC (Bld) [#/Vol] 4.58 10*6/uL Low 4.6-6.2 [facility] RDWOrdered By: Alex Sherwood on 04-27-2025 RDW 41.4 fl 35.1-43.9 [facility] Serum creatinine measurement (mass/volume)Ordered By: Alex Sherwood on 04-27-2025 Creatinine [Mass/Vol] 1.32 mg/dL High 0.70-1.20 [facility] Serum glucose measurement (m ass/volume)Ordered By: Alex Sherwood on 04-27-2025 Glucose [Mass/Vol] 159 mg/dL High 70-99 [facility] Serum or plasma calcium jayden urement (mass/volume)Ordered By: Alex Sherwood on 04-27-2025 Calcium [Mass/Vol] 9.1 mg/dL 7.6-11.0 [facility] Serum or plasma urea nitroge n measurement (mass/volume)Ordered By: Alex Kaela on 04-27-2025 Urea nitrogen [Mass/Vol] 23 mg/dL High 4-19 [facility] Sodium levelOrdered By: Markell chris Kaela on 04-27-2025 Sodium [Moles/Vol] 138 mmol/L 133-145 [facility] White blood cell (WBC) count Ordered By: Alex Kaela on 04-27-2025 WBC (Bld) [#/Vol] 5.0 10*3/uL 4.4-11.0 [facility] Cardiology Visit Reporton Cardiology Visit Report [facility] [address] [place] [address] OFFICE VISIT Date of Service: 02/19/25 MR#: [id number] Acct: [id number] Name: SVEN GORDON Rep #: [id number] : 1950 Provider: Dr. Derik Aj MD Age/Sex: 74/M Location: [facility] Status: Signed HPI HPI History of Present Illness Details: Pleasant 74-year-old man with a history of hypertension who is for a follow-up visit. He has no significant obstructive coronary disease but a family history of coronary artery disease and he has been very concerned about his cardiac health. He denies any chest pain or shortness breath or paroxysmal nocturnal dyspnea and has not had any pedal edema and no neck arm or jaw discomfort to suggest angina. You remember that in 2019 he underwent cardiac catheterization with demonstrated nonobstructive coronary arteries. He also had a vascular study performed with demonstrated moderate plaque in his carotid arteries. He has done well since then. He continues with risk factor modification. As you know at his last visit he was concerned about his anion gap which has now normalized. His lipid profile is excellent and his carotid study demonstrated less than 50% stenosis. He tells me that a thyroid nodule has been discovered and he is also supposed to have a sleep study due to likely obstructive sleep apnea. He was wondering whether any of this would have any impact on his cardiac status. His physical exam is significant for soft 1/6 systolic murmur noted left sternal border. 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 Required: No Accompanied by: Self Is patient in pain?: No Allergies No Known Allergies Allergy (Verified 02/19/25 10:52) Medications ???Medication ???Instructions ???Recorded ???Confirmed ???Type ujoorbbr-wc-[id number] 300 mcg-K 60 1 tab PO DAILY vitamin 12/23/18 History mcg-lycop 600 mcg-lutein 300 mcg tablet (Centrum Silver Ultra Men's) aspirin 81 mg chewable tablet 81 mg PO DAILY heart health 02/19/25 History lisinopril 5 mg tablet 5 mg PO BID blood pressure #90 tab s 02/13/20 02/19/25 Rx omeprazole 20 mg capsule,delayed 20 mg PO DAILY #90 caps 02/16/20 0 02/19/25 Rx release amlodipine 5 mg tablet 5 mg PO QPM 09/07/20 02/19/25 Hist ory atorvastatin 10 mg tablet 10 mg PO QHS 09/07/20 02/19/25 His tory tadalafil 10 mg tablet (Cialis) 10 mg PO DAILY PRN sexual activity 11/09/22 02/19/25 Rx #30 tabs Have you fallen in the past year?: Yes [facility] Medical History Actinic keratosis Cheek mass Epidermal inclusion cyst Essential (primary) hypertension History of cellulitis Intermittent palpitations Neoplasm of skin of ear Nonobstructive atherosclerosis of coronary artery Obesity PABLO (obstructive sleep apnea) Personal history of skin cancer Rhinophyma Sinus bradycardia Thyroid nodule Topical medication dermatitis Surgical History History of appendectomy History of left heart catheterization (02/16/20) Family History Unknown No problems noted. Father Heart disease Mother CVA (cerebral vascular accident) Social History Smoking Status: Never smoker alcohol intake: never substance use type: does not use caffeine: Yes Type: coffee and tea additional social history: DOES USE ASPIRIN DOES NOT USE IBUPROFEN ROS Const Const: Negative for fatigue, weakness, headache(s), daytime sleepiness or difficulty sleeping ENT ENT: Negative for headache(s), dizziness or Nosebleed/epistaxis Cardio Chest Pain: No Palpitations: No Edema: None Resp Respiratory: Negative for SOB with activity, SOB at rest, SOB orthopnea SOB lying down or Cough GI GI: Negative nausea, vomiting or heartburn Neuro Neuro: Negative for dizziness, lightheadedness, near syncope, headache(s) or weakness Endo Endo: Negative for fatigue Cardiology Exam Const Appearance: cooperative, healthy appearing, no acute distress, well developed and well groomed Nutritional Appearance: average body habitus and well nourished Orientation: alert, awake and oriented x3 Head Head: normal to inspection, normocephalic and atraumatic Ears: hearing grossly normal bilaterally and external ears normal Nose: external nose normal, nares normal, nasal mucous membranes and turbinates normal, septum normal and no nasal dischar (more content not included)... Normal [facility] Carotid Duplex Ultrasoundon 12-25-2024 Carotid Duplex Ultrasound [facility] Cardiovascular Services [address] [place] [address]. [place] [address] Carotid Duplex Ultrasound 12/25/24 0801 MR#: [id number] Acct: [id number] Name: SVEN GORDON Rep #: [id number] : 1950 74 From: Alejo Jj MD Attending Dr: Dr. Toby Gaviria MD Status: R EG CLI Ordering Dr: Toby Gaviria MD Date: 12/25/24 Location: CVS Sex: M C Admitted: Reason For Study Reason For Study: Stenosis Rt. Velocities/BP Lt. Velocities/BP Prox CCA 113.3/18.89 cm/sec. Prox CCA 130.2/29.8 cm/sec. Mid CCA 79.0/17.6 cm/sec. Mid CCA 99.2/24.3 cm/sec. Dist CCA 66.7/16.3 cm/sec. Dist CCA 60.5/17.6 cm/sec. Prox ICA 63.0/18.8 cm/sec. Prox ICA 56.4/20.1 cm/sec. Mid ICA 64.2/21.2 cm/sec. Mid ICA 79.5/28.9 cm/sec. Dist ICA 60.5/22.5 cm/sec. Dist ICA 82.8/30.0 cm/sec. Rt. ICA/CCA = 0.8. Lt. ICA/CCA = 0.8. Prox ECA 99.2/11.5 cm/sec. Prox ECA 91.2/6.5 cm/sec. Rt. Vert. 44.6/13.9 cm/sec. Lt. Vert. 49.8/13.5 cm/sec. Right Extracranial There is intimal thickening but no significant atherosclerotic plaque noted in the right common carotid artery. There is heterogeneous, irregular atherosclerotic plaque noted in the right internal carotid artery. There is intimal thickening but no significant atherosclerotic plaque noted in the right external carotid artery. Antegrade flow is noted in the right vertebral artery. Left Extracranial There is intimal thickening but no significant atherosclerotic plaque noted in the left common carotid artery. There is heterogeneous, irregular atherosclerotic plaque noted in the left internal carotid artery. There is intimal thickening but no significant atherosclerotic plaque noted in the left external carotid artery. Antegrade flow is noted in the left vertebral artery. Procedure Carotid Duplex 13483. This is a Carotid Duplex examination using B-mode, color flow and specral Doppler. Exam performed in department. VL/Carotid Duplex Ultrasound Interpretation Summary Mild (<50%) stenosis right extracranial internal carotid. Mild (<50%) stenosis left extracranial internal carotid. Patent and antegrade vertebrals bilaterally. ___ Ordering Physician: Toby Gaviria Referring Physician: Toby Gaviria Performed By: Renetta Rahman RVT and Student 12/25/241754 Date Alejo Jj MD CC: Dr. Toby Gaviria MD Date Dictated: 12/25/24800 Date Transcribed: 12/25/241754 Burrer Operator: Signed Normal [facility] Duplex ultrasound of carotid artery reportOrdered By: Alejo Jj on 12-25-2024 Study report [facility] Cardiovascular Services [address] [place] [address] Carotid Duplex Ultrasound 12/25/24800 MR#: [id number] Acct: [id number] Name: SVEN GORDON Rep #:[id number] : 1950 74 From: Alejo Tobar Attending Dr: Dr. Toby Gaviria MD Status: REG CLI Ordering Dr: Toby Gaviria MD Date: 12/25/24 Location: CVS Sex: M C Admitted: Reason For Study Reason For Study: Stenosis Rt. Velocities/BP Lt. Velocities/BP Prox CCA 113.3/18.89 cm/sec. Prox CCA 130.2/29.8 cm/sec. Mid CCA 79.0/17.6 cm/sec. Mid CCA 99.2/24.3 cm/sec. Dist CCA 66.7/16.3 cm/sec. Dist CCA 60.5/17.6 cm/sec. Prox ICA 63.0/18.8 cm/sec. Prox ICA 56.4/20.1 cm/sec. Mid ICA 64.2/21.2 cm/sec. Mid ICA 79.5/28.9 cm/sec. Dist ICA 60.5/22.5 cm/sec. Dist ICA 82.8/30.0 cm/sec. Rt. ICA/CCA = 0.8. Lt. ICA/CCA = 0.8. Prox ECA 99.2/11.5 cm/sec. Prox ECA 91.2/6.5 cm/sec. Rt. Vert. 44.6/13.9 cm/sec. Lt. Vert. 49.8/13.5 cm/sec. Right Extracranial There is intimal thickening but no significant atherosclerotic plaque noted in the right common carotid artery. There is heterogeneous, irregular atherosclerotic plaque noted in the right internal carotid artery. There is intimal thickening but no significant atherosclerotic plaque noted in the right external carotid artery. Antegrade flow is noted in the right vertebral artery. Left Extracranial There is intimal thickening but no significant atherosclerotic plaque noted in the left common carotid artery. There is heterogeneous, irregular atherosclerotic plaque noted in the left internal carotid artery. There is intimal thickening but no significant atherosclerotic plaque noted in the left external carotid artery. Antegrade flow is noted in the left vertebral artery. Procedure Carotid Duplex 35991. This is a Carotid Duplex examination using B-mode, color flow and specral Doppler. Exam performed in department. VL/Carotid Duplex Ultrasound Interpretation Summary Mild (<50%) stenosis right extracranial internal carotid. Mild (<50%) stenosis left extracranial internal carotid. Patent and antegrade vertebrals bilaterally. ___ Ordering Physician: Toby Gaviria Referring Physician: Toby Gaviria Performed By: Renetta Rahman RVT and Student 12/25/241754 Date _ Alejo Jj MD CC: Dr. Toby Gaviria MD ~ Date Dictated: 12/25/24800 Date Transcribed: 12/25/241754 Burrer Operator: Signed [facility] Work Phone: Echo Completeon 12-25-2024 Echo Complete [facility] Cardiovascular Services [address] [place] [address] Echo Complete 12/25/24 0830 MR#: [id number] Acct: [id number] Name: SVEN GORDON Rep #: [id number] : 1950 74 From: Azul Levine MD Attending Dr: Dr. Toby Gaviria MD Status: R EG I Ordering Dr: Toby Gaviria MD Date: 12/25/24 Location: CVS Sex: M C Admitted: Reason For Study Reason For Study: MURMUR Procedure This was a 2D Doppler, Color Flow transthoracic echocardiogram. Exam performed in department. Left Ventricle Normal LV size. The estimated ejection fraction is 60 %. No evidence for diastolic dysfunction. No regional wall motion abnormalities noted. Right Ventricle Normal RV size. Normal systolic function. Atria The left and right atria are normal. No doppler evidence for ASD. Mitral Valve There is no mitral valve stenosis. Trivial mitral valve insufficiency. Tricuspid Valve There is no tricuspid stenosis. Trivial tricuspid valve insufficiency. Pulmonary artery systolic pressure is 25 mmHg. Aortic Valve Mild diffuse aortic valve thickening. Mild aortic stenosis. Trivial aortic valve insufficiency. Pulmonic Valve There is no pulmonic valvular stenosis. No pulmonic valve insufficiency. Great Vessels Normal sized aortic root. Pericardium/Pleural No pericardial effusion. MMode/2D Measurements Calculations LVIDd: 4.8 cm IVSd: 0.98 cm LVOT diam: 2.1 cm LVIDs: 3.2 cm LVPWd: 1.2 cm LVOT area: 3.4 cm2 RVDd: 3.6 cm FS: 33.2 % Ao root diam: 3.1 cm LAV(MOD-bp): 54.7 ml LVAd ap4: 31.4 cm2 LAV(MOD-bp) Indexed: 27.3 ml/m2 LVLd ap4: 8.5 cm LAV(MOD-sp2): 47.7 ml EDV(MOD-sp4): 100.3 ml LAV(MOD-sp4): 56.3 ml EDV(sp4-el): 99.2 ml LVAs ap4: 18.9 cm2 LVLs ap4: 7.2 cm ESV(MOD-sp4): 45.9 ml ESV(sp4-el): 42.0 ml EF(MOD-sp4): 54.3 % EF(sp4-el): 57.6 % SV(MOD-sp4): 54.4 ml SV(sp4-el): 57.1 ml LA A4 area: 20.9 cm2 SI(MOD-sp4): 27.2 ml/m2 LA dimension(2D): 4.0 cm RA A4 area: 11.5 cm2 Time Measurements MV dec time: 0.20 sec Doppler Measurements Calculations MV E max eric: 66.1 cm/sec Lat Peak E' Eric: 12.4 cm/sec Med Peak E' Eric: 7.9 cm/sec MV A max eric: 62.4 cm/sec E/E' lat: 5.3 E/E' med: 8.4 MV E/A: 1.1 MV V2 max: 82.1 cm/sec Ao V2 max: 238.0 cm/sec MV max P.7 mmHg MV dec slope: 338.2 cm/sec2 Ao max P.7 mmHg MV V2 mean: 44.5 cm/sec Ao V2 mean: 155.8 cm/sec MV mean P.96 mmHg Ao mean P.5 mmHg MV V2 VTI: 23.4 cm Ao V2 VTI: 52.0 cm AV (velocity ratio): 0.66 MVA(VTI): 5.1 cm2 KAITLIN(I,D): 2.3 cm2 KAITLIN(V,D): 2.0 cm2 LV V1 max: 137.8 cm/sec SV(LVOT): 118.5 ml PA V2 max: 123.6 cm/sec LV V1 max P.6 mmHg PA V2 mean: 80.1 cm/sec LV V1 mean P.1 mmHg LV V1 mean: 109.1 cm/sec LV V1 VTI: 34.4 cm ECHO/Echo Complete Interpretation Summary The estimated ejection fraction is 60 %. No evidence for diastolic dysfunction. Trivial mitral valve insufficiency. Trivial aortic valve insufficiency. Mild aortic stenosis. ___ Ordering Physician: Toby Gaviria Referring Physician: Toby Gaviria Performed By: Aaliyah Choudhury RCS 12/25/24 142 Date Azul Levine MD CC: Dr. Toby Gaviria MD Date Dictated: 12/25/24829 Date Transcribed: 12/25/241428 Burrer Operator: Signed Normal [facility] Echocardiogram study reportO rdered By: Azul Levine on 12-25-2024 Study report [facility] Cardi[facility] Services [address] [place] [address] Echo Complete 12/25/24829 MR#: [id number] Acct: [id number] Name: SVEN GORDON Rep #:[id number] : 1950 74 From: Azul smalls MD Attending Dr: Dr. Toby Gaviria MD Status: REG CLI Ordering Dr: Toby Gaviria MD Date: 12/25/24 Location: [facility] Sex: M C Admitted: Reason For Study Reason For Study: MURMUR Procedure This was a 2D Doppler, Color Flow transthoracic echocardiogram. Exam performed in department. Left Ventricle Normal LV size. The estimated ejection fraction is 60 %. No evidence for diastolic dysfunction. No regional wall motion abnormalities noted. Right Ventricle Normal RV size. Normal systolic function. Atria The left and right atria are normal. No doppler evidence for ASD. Mitral Valve There is no mitral valve stenosis. Trivial mitral valve insufficiency. Tricuspid Valve There is no tricuspid stenosis. Trivial tricuspid valve insufficiency. Pulmonaryartery systolic pressure is 25 mmHg. Aortic Valve Mild diffuse aortic valve thickening. Mild aortic stenosis. Trivial aortic valveinsufficiency. Pulmonic Valve There is no pulmonic valvular stenosis. No pulmonic valve insufficiency. Great Vessels Normal sized aortic root. Pericardium/Pleural No pericardial effusion. MMode/2D Measurements & Calculations LVIDd: 4.8 cm IVSd: 0.98 cm LVOT diam: 2.1 cm LVIDs: 3.2 cm LVPWd: 1.2 cm LVOT area: 3.4 cm2 RVDd: 3.6 cm FS: 33.2 % Ao root diam: 3.1 cm LAV(MOD-bp): 54.7 ml LVAd ap4: 31.4 cm2 LAV(MOD-bp) Indexed: 27.3 ml/m2 LVLd ap4: 8.5 cm LAV(MOD-sp2): 47.7 ml EDV(MOD-sp4): 100.3 ml LAV(MOD-sp4): 56.3 ml EDV(sp4-el): 99.2 ml LVAs ap4: 18.9 cm2 LVLs ap4: 7.2 cm ESV(MOD-sp4): 45.9 ml ESV(sp4-el): 42.0 ml EF(MOD-sp4): 54.3 % EF(sp4-el): 57.6 % SV(MOD-sp4): 54.4 ml SV(sp4-el): 57.1 ml LA A4 area: 20.9 cm2 SI(MOD-sp4): 27.2 ml/m2 ___ LA dimension(2D): 4.0 cm RA A4 area: 11.5 cm2 Time Measurements MV dec time: 0.20 sec Doppler Measurements & Calculations MV E max eric: 66.1 cm/sec Lat Peak E' Eric: 12.4 cm/sec Med Peak E' Eric: 7.9 cm/sec MV A max eric: 62.4 cm/sec E/E' lat: 5.3 E/E' med: 8.4 MV E/A: 1.1 MV V2 max: 82.1 cm/sec Ao V2 max: 238.0 cm/sec MV max P.7 mmHg MV dec slope: 338.2 cm/sec2 Ao max P.7 mmHg MV V2 mean: 44.5 cm/sec Ao V2 mean: 155.8 cm/sec MV mean P.96 mmHg Ao mean P.5 mmHg MV V2 VTI: 23.4 cm Ao V2 VTI: 52.0 cm AV (velocity ratio): 0.66 MVA(VTI): 5.1 cm2 KAITLIN(I,D): 2.3 cm2 KAITLIN(V,D): 2.0 cm2 LV V1 max: 137.8 cm/sec SV(LVOT): 118.5 ml PA V2 max: 123.6 cm/sec LV V1 max P.6 mmHg PA V2 mean: 80.1 cm/sec LV V1 mean P.1 mmHg LV V1 mean: 109.1 cm/sec LV V1 VTI: 34.4 cm ECHO/Echo Complete Interpretation Summary The estimated ejection fraction is 60 %. No evidence for diastolic dysfunction. Trivial mitral valve insufficiency. Trivial aortic valve insufficiency. Mild aortic stenosis. ___ Ordering Physician: Toby Gaviria Referring Physician: Toby Gaviria Performed By: Aaliyah Choudhury RCS 12/25/24 1429 Date _ Azul Levine MD CC: Dr. Toby Gaviria MD ~ Date Dictated: 12/25/24829 Date Transcribed: 12/25/241428 Burrer Operator: Signed [facility] Work Phone: Thyroglobulin w/Anti-TG ABon 12-04-2024 Anti-TG AB < 1.0 Normal 0.0-0.9 [facility] Comment on above: Result Comment: Thyr oglobulin Antibody measured by Sarah Hackett Methodology It should be noted that the presence of thyroglobulin antibodies may not be pathogenic nor diagnostic, especially at very low levels. The assay glue mounter operator has found that four percent of individuals without evidence of thyroid disease or autoimmunity will have positive TgAb levels up to 4 IU/mL. Performed By: #### L 3300.6900, L3300.6820 ####[facility] [address] [place], [address] THYROGLOB QUANT 22.5 ng/mL Normal 1.4-29.2 [facility] Comment on above: Result Comment: Acco rding to the National Academy of Clinical Biochemistry, the reference interval for Thyroglobulin (TG) should be related to euthyroid patients and not for patients who underwent thyroidectomy. TG reference intervals for these patients depend on the residual mass of the thyroid tissue left after surgery. Establishing a post-operative baseline is recommended. The assay limit of quantitation is 0.1 ng/mL Thyroglobulin measured by Sarah Hackett Immunometric Assay Performed By: #### L 3300.6900, L3300.6820 ####[facility] [id number] [facility] [place], [address] Thyroidon 12-04-[address] [facility] Imaging Services [address] [place], [place] [address] Thyroid MR#: [id number] Acct: [id number] Name: SVEN GORDON Rep #: [id number] : 1950 M 74 From: Alejo Osborn MD PCP: Dr. Toby Gaviria MD Status: REG CLI Study: Thyroid Date of Exam: 12/04/24 Exam# [id number] Ordering Dr: Toby Gaviria MD PROCEDURE: ULTRASOUND THYROID REASON FOR EXAM: NODULE. TECHNIQUE: REAL-TIME GRAYSCALE AND COLOR-FLOW IMAGING WAS PERFORMED ALONG WITH ROUTINE IMAGE DOCUMENTATION. COMPARISON: None. FINDINGS: Right thyroid lobe measures 4.8 x 1.9 x 1.6 cm.. Left thyroid lobe measures 4.8 x 1.3 x 1.5 cm. Isthmus thickness is 0.3 cm.. Thyroid Size: Normal Background Echotexture: Homogeneous. Thyroid Nodules: Bilateral. RIGHT NODULE: Midpole, predominantly solid, 1.0 x 0.8 x 0.6 cm, well-circumscribed, wider than tall, hypoechoic, no calcifications, TR 4. NODULE: Inferior pole, predominantly solid, 0.9 x 0.8 x 0.6 cm, well-circumscribed, wider than tall, hypoechoic, no calcifications, TR 4. NODULE: Inferior pole, predominantly solid, 0.5 x 0.6 x 0.4 cm, well-circumscribed, wider than tall, hypoechoic, no calcifications, TR 4. LEFT NODULE: Midpole, mixed cystic and solid, 1.1 x 0.9 x 0.6 cm, well-circumscribed, wider than tall, anechoic and isoechoic, no calcifications, TR 3. NODULE: Superior pole, cystic, 0.4 x 0.4 x 0.3 cm, well-circumscribed, rounded, anechoic, TR 1. US/Thyroid IMPRESSION: 1. TR 4 category micronodules in the right thyroid lobe. No FNA warranted. 2. A TR 3 category micronodule in the left thyroid lobe. No FNA warranted. 3. Benign cystic nodule in the left superior pole. 4. Follow-up ultrasound recommended in 12 months. Reading Location: [facility] CC: Dr. Toby Gaviria MD Burrer Operator: Signed Normal [facility] Thyroid Peroxidase ABon 02-2 0-2024 THYR PEROX AB < 9 Normal 0-34 [facility] Comment on above: Result Comment: Perf ormed at: - [facility] [place] [id number] Quality Assurance Project Manager: Phill Oneill PhD, Phone: [phone] Performed By: #### L 0799.6369, X0887.2080 ####[facility] [address] [place], [address] Vitamin D,25 Hydroxyon 12-04 Vitamin D 25-OH 40.0 ng/mL Normal [facility] Comment on above: Order Comment: Order Date: 12/02/24Order Info: [id number] - VITD25 Result Comment: Gogo min D 25(OH) Status Range Deficiency <20 ng/mL (50nmol/L) Insufficiency 20 - 30 ng/mL (50 - 75 nmol/L) Sufficiency 30 - 100 ng/mL (75 - 250 nmol/L) Toxicity >100 ng/mL (>250 nmol/L) Performed By: #### L 509.1000, L501.5200, L501.2300, L501.9520, L501.9985, L506.1000, L100.0100, L500.4100, L500.4050 ####[facility] [address] [place], [address] 32-UO-Wbnsyvd DOrdered By: Alpesh Gaviria on 12-02-2024 Vitamin D 25-Hydroxy 40.0 ng/mL [facility] Comment on above: Vitamin D 25(OH) Sta tus Range Deficiency <20 ng/mL (50nmol/L) Insufficiency 20 - 30 ng/mL (50 - 75 nmol/L) Sufficiency 30 - 100 ng/mL (75 - 250 nmol/L) Toxicity >100 ng/mL (>250 nmol/L) Absolute neutrophil countOrd ered By: Toby Gaviria on 12-02-2024 Neutrophils (Bld) [#/Vol] 3.7 10*3/uL 2.0-7.7 [facility] Albumin to globulin ratioOrd ered By: Toby Gaviria on 12-02-2024 Albumin/Globulin [Mass ratio] 1.3 {ratio} 0.9-2.4 [facility] Bacteria LM.HPF (Urine sed) [#/Area]Ordered By: Toby Gaviria on 12-02-2024 Urine Bacteria RARE /hpf None Seen [facility] Basophil percentageOrdered B y: Toby Gaviria on 12-02-2024 Basophils/100 WBC (Bld) 0.3 % 0-1 [facility] Bilirubin Test strip Ql (U)O rdered By: Toby Gaviria on 12-02-2024 Bilirubin Ql (U) Negative Negative [facility] Bilirubin, totalOrdered By: Toby Gaviria on 12-02-2024 Bilirubin [Mass/Vol] 0.80 mg/dL 0.20-1.00 [facility] Comment on above: For patients on eltr ombopag therapy, use of Dimension Mccammon TBIL is not recommended. Blood urea nitrogen (BUN)/cr eatinine ratioOrdered By: Toby Gaviria on 12-02-2024 Urea nitrogen/Creatinine [Mass ratio] 16.8 mg/mg 10-20 [facility] CBC W/Diff, Automatedon 11-15 Absolute Lymph 2.24 X10 3/uL Normal 0.83-4.51 [facility] Comment on above: Order Comment: Order Date: 12/02/24 Order Info: 0184-1 - CBCD Performed By: #### L 509.1000, L501.5200, L501.2300, L501.9520, L501.9985, L506.1000, L100.0100, L500.4100, L500.4050 #### [facility] Laboratory [address] [place], [place], [phone] ([phone]) Absolute Neut 3.7 X10 3/uL Normal 2.0-7.7 [facility] Comment on above: Order Comment: Order Date: 12/02/24 Order Info: 0184-1 - CBCD Performed By: #### L 509.1000, L501.5200, L501.2300, L501.9520, L501.9985, L506.1000, L100.0100, L500.4100, L500.4050 #### [facility] [address] [place], [place], [phone] ([phone]) Basophils/100 WBC (Bld) 0.3 % Normal 0-1 [facility] Comment on above: Order Comment: Order Date: 12/02/24 Order Info: 0184-1 - CBCD Performed By: #### L 509.1000, L501.5200, L501.2300, L501.9520, L501.9985, L506.1000, L100.0100, L500.4100, L500.4050 #### [facility] [address] [place], [place], [phone] (300) Eosinophils/100 WBC (Bld) 1.9 % Normal 0-5 [facility] Comment on above: Order Comment: Order Date: 12/02/24 Order Info: 0184-1 - CBCD Performed By: #### L 509.1000, L501.5200, L501.2300, L501.9520, L501.9985, L506.1000, L100.0100, L500.4100, L500.4050 #### [facility] [address] [place], [address] Erythrocyte distribution width (RBC) [Ratio] 12.7 % Normal 11.6-14.6 [facility] Comment on above: Order Comment: Order Date: 12/02/24 Order Info: 0184-1 - CBCD Performed By: #### L 509.1000, L501.5200, L501.2300, L501.9520, L501.9985, L506.1000, L100.0100, L500.4100, L500.4050 #### [facility] [address] [place] [place], [address] (408) Hematocrit (Bld) [Volume fraction] 45.2 % Normal 40-54 [facility] Comment on above: Order Comment: Order Date: 12/02/24 Order Info: 0184- - CBCD Performed By: #### L 509.1000, L501.5200, L501.2300, L501.9520, L501.9985, L506.1000, L100.0100, L500.4100, L500.4050 #### [facility] [address], [address] (186) Hemoglobin (Bld) [Mass/Vol] 14.7 g/dL Normal 13.0-16.5 [facility] Comment on above: Order Comment: Order Date: 12/02/24 Order Info: 0184- - CBCD Performed By: #### L 509.1000, L501.5200, L501.2300, L501.9520, L501.9985, L506.1000, L100.0100, L500.4100, L500.4050 #### [facility] [address] [facility], [address] (416) IG% 0.300 Normal 0.0-0.9 [facility] Comment on above: Order Comment: Order Date: 12/02/24 Order Info: 0184-1 - CBCD Result Comment: IG% - Immature Granulocytes (promyelocytes, myelocytes and metamyelocytes) > 1% indicates that a LEFT SHIFT is Present. Performed By: #### L 509.1000, L501.5200, L501.2300, L501.9520, L501.9985, L506.1000, L100.0100, L500.4100, L500.4050 #### [facility] [address] [place], [address] Lymphocytes/100 WBC (Bld) 32.7 % Normal 19-41 [facility] Comment on above: Order Comment: Order Date: 12/02/24 Order Info: 0184-1 - CBCD Performed By: #### L 509.1000, L501.5200, L501.2300, L501.9520, L501.9985, L506.1000, L100.0100, L500.4100, L500.4050 #### [facility] [address] [place], [address] MCH (RBC) [Entitic mass] 29.8 pg Normal 27.0-32.0 [facility] Comment on above: Order Comment: Order Date: 12/02/24 Order Info: [id number]- - CBCD Performed By: #### L 509.1000, L501.5200, L501.2300, L501.9520, L501.9985, L506.1000, L100.0100, L500.4100, L500.4050 #### [facility] [address] [place], [address] MCHC (RBC) [Mass/Vol] 32.5 g/dL Normal 32-36 [facility] Comment on above: Order Comment: Order Date: 12/02/24 Order Info: 0184-1 - CBCD Performed By: #### L 509.1000, L501.5200, L501.2300, L501.9520, L501.9985, L506.1000, L100.0100, L500.4100, L500.4050 #### [facility] [address] [place], [address] MCV (RBC) [Entitic vol] 91.7 fL Normal 80-94 [facility] Comment on above: Order Comment: Order Date: 12/02/24 Order Info: 018- - CBCD Performed By: #### L 509.1000, L501.5200, L501.2300, L501.9520, L501.9985, L506.1000, L100.0100, L500.4100, L500.4050 #### [facility] [address] [place], [address] Monocytes/100 WBC (Bld) 10.5 % High 0-10 [facility] Comment on above: Order Comment: Order Date: 12/02/24 Order Info: 018- - CBCD Performed By: #### L 509.1000, L501.5200, L501.2300, L501.9520, L501.9985, L506.1000, L100.0100, L500.4100, L500.4050 #### [facility] [address] [place], [address] Neutrophils/100 WBC (Bld) 54.3 % Normal 47-70 [facility] Comment on above: Order Comment: Order Date: 12/02/24 Order Info: 018- - CBCD Performed By: #### L 509.1000, L501.5200, L501.2300, L501.9520, L501.9985, L506.1000, L100.0100, L500.4100, L500.4050 #### [facility] [address] [place], [address] Nucleated RBC (Bld) [#/Vol] 0 10*3/uL Normal 0-5 [facility] Comment on above: Order Comment: Order Date: 12/02/24 Order Info: 018- - CBCD Performed By: #### L 509.1000, L501.5200, L501.2300, L501.9520, L501.9985, L506.1000, L100.0100, L500.4100, L500.4050 #### [facility] [address] [place], [address] Platelet mean volume (Bld) [Entitic vol] 11.3 fL Normal 6.2-12.0 [facility] Comment on above: Order Comment: Order Date: 12/02/24 Order Info: 0184-1 - CBCD Performed By: #### L 509.1000, L501.5200, L501.2300, L501.9520, L501.9985, L506.1000, L100.0100, L500.4100, L500.4050 #### [facility] [address] [place], [address] Platelets (Bld) [#/Vol] 166 10*3/uL Normal 150-450 [facility] Comment on above: Order Comment: Order Date: 12/02/24 Order Info: 0184- - CBCD Performed By: #### L 509.1000, L501.5200, L501.2300, L501.9520, L501.9985, L506.1000, L100.0100, L500.4100, L500.4050 #### [facility] [address] [place], [address] RBC (Bld) [#/Vol] 4.93 10*6/uL Normal 4.6-6.2 [facility] Comment on above: Order Comment: Order Date: 12/02/24 Order Info: 0184-1 - CBCD Performed By: #### L 509.1000, L501.5200, L501.2300, L501.9520, L501.9985, L506.1000, L100.0100, L500.4100, L500.4050 #### [facility] [address] [place], [address] RDW SD 42.5 fl Normal 35.1-43.9 [facility] Comment on above: Order Comment: Order Date: 12/02/24 Order Info: 0184- - CBCD Performed By: #### L 509.1000, L501.5200, L501.2300, L501.9520, L501.9985, L506.1000, L100.0100, L500.4100, L500.4050 #### [facility] [address] [place], [place], [address] WBC (Bld) [#/Vol] 6.9 10*3/uL Normal 4.4-11.0 [facility] Comment on above: Order Comment: Order Date: 12/02/24 Order Info: [id number] - CBCD Performed By: #### L 509.1000, L501.5200, L501.2300, L501.9520, L501.9985, L506.1000, L100.0100, L500.4100, L500.4050 #### [facility] [address] [facility] [place], [place], [id number] Carbon dioxide measurementOr dered By: Toby Gaviria on 12-02-2024 CO2 [Moles/Vol] 26.0 mmol/L 21.0-32.0 [facility] Chloride measurementOrdered By: Toby Gaviria on 12-02-2024 Chloride [Moles/Vol] 104 mmol/L 98-107 [facility] Comprehensive Metabolic Prof ilon 12-02-2024 Albumin [Mass/Vol] 4.1 g/dL Normal 3.2-5.0 [facility] Comment on above: Order Comment: Order Date: 12/02/24Order Info: [id number] - CMPOrder Info: [id number] - LIPIDOrder Info: [id number] - PHOSOrder Info: [id number] - MGOrder Info: [id number] - TSHOrder Info: 3024-7 - T4F Performed By: #### L 509.1000, L501.5200, L501.2300, L501.9520, L501.9985, L506.1000, L100.0100, L500.4100, L500.4050 ####[facility] [address] [place], [address] Albumin/Globulin [Mass ratio] 1.3 {ratio} Normal 0.9-2.4 [facility] Comment on above: Order Comment: Order Date: 12/02/24Order Info: [id number] - CMPOrder Info: [id number] - LIPIDOrder Info: 7- - PHOSOrder Info: [id number] - MGOrder Info: [id number] - TSHOrder Info: 302-7 - T4F Performed By: #### L 509.1000, L501.5200, L501.2300, L501.9520, L501.9985, L506.1000, L100.0100, L500.4100, L500.4050 ####[facility] [address] [place], [address] ALK P 80 U/L Normal 45-117 [facility] Comment on above: Order Comment: Order Date: 12/02/24Order Info: 785- - CMPOrder Info: [id number] - LIPIDOrder Info: 7- - PHOSOrder Info: [id number] - MGOrder Info: 3 - TSHOrder Info: 3023-7 - T4F Performed By: #### L 509.1000, L501.5200, L501.2300, L501.9520, L501.9985, L506.1000, L100.0100, L500.4100, L500.4050 ####[facility] [address] [place], [address] ALT [Catalytic activity/Vol] 35 U/L Normal 16-61 [facility] Comment on above: Order Comment: Order Date: 12/02/24Order Info: 86-1 - CMPOrder Info: [id number] - LIPIDOrder Info: [id number] - PHOSOrder Info: [id number] - MGOrder Info: [id number] - TSHOrder Info: 3024-7 - T4F Performed By: #### L 509.1000, L501.5200, L501.2300, L501.9520, L501.9985, L506.1000, L100.0100, L500.4100, L500.4050 ####[facility] [address] [place], [place], [address] AST [Catalytic activity/Vol] 31 U/L Normal 15-37 [facility] Comment on above: Order Comment: Order Date: 12/02/24Order Info: [id number] - CMPOrder Info: [id number] - LIPIDOrder Info: [id number] - PHOSOrder Info: [id number] - MGOrder Info: [id number] - TSHOrder Info: 3024-7 - T4F Performed By: #### L 509.1000, L501.5200, L501.2300, L501.9520, L501.9985, L506.1000, L100.0100, L500.4100, L500.4050 ####[facility] [address] [place], [place], [address] Bilirubin [Mass/Vol] 0.80 mg/dL Normal 0.20-1.00 [facility] Comment on above: Order Comment: Order Date: 12/02/24Order Info: [id number] - CMPOrder Info: [id number] - LIPIDOrder Info: [id number] - PHOSOrder Info: [id number] - MGOrder Info: [id number] - TSHOrder Info: 3024-7 - T4F Result Comment: For patients on eltrombopag therapy, use of Dimension Mccammon TBIL is not recommended. Performed By: #### L 509.1000, L501.5200, L501.2300, L501.9520, L501.9985, L506.1000, L100.0100, L500.4100, L500.4050 ####[facility] [address] [place], [place], [id number] BUN/CRE 16.8 RATIO Normal 10-20 [facility] Comment on above: Order Comment: Order Date: 12/02/24Order Info: [id number] - CMPOrder Info: - LIPIDOrder Info: [id number] - PHOSOrder Info: [id number] - MGOrder Info: [id number] - TSHOrder Info: 3023-7 - T4F Performed By: #### L 509.1000, L501.5200, L501.2300, L501.9520, L501.9985, L506.1000, L100.0100, L500.4100, L500.4050 ####[facility] [address] [place], [address] CA,Total 9.2 mg/dL Normal 8.5-10.1 [facility] Comment on above: Order Comment: Order Date: 12/02/24Order Info: [id number] - CMPOrder Info: - LIPIDOrder Info: [id number] - PHOSOrder Info: - MGOrder Info: [id number] - TSHOrder Info: 7 - T4F Performed By: #### L 509.1000, L501.5200, L501.2300, L501.9520, L501.9985, L506.1000, L100.0100, L500.4100, L500.4050 ####[facility] [address] [place], [address] Chloride [Moles/Vol] 104 mmol/L Normal 98-107 [facility] Comment on above: Order Comment: Order Date: 12/02/24Order Info: [id number] - CMPOrder Info: - LIPIDOrder Info: [id number] - PHOSOrder Info: [id number] - MGOrder Info: [id number] - TSHOrder Info: 3024-7 - T4F Performed By: #### L 509.1000, L501.5200, L501.2300, L501.9520, L501.9985, L506.1000, L100.0100, L500.4100, L500.4050 ####[facility] [address] [place], [address] CO2 [Moles/Vol] 26.0 mmol/L Normal 21.0-32.0 [facility] Comment on above: Order Comment: Order Date: 12/02/24Order Info: 86-1 - CMPOrder Info: [id number] - LIPIDOrder Info: 7- - PHOSOrder Info: [id number] - MGOrder Info: 3 - TSHOrder Info: 7 - T4F Performed By: #### L 509.1000, L501.5200, L501.2300, L501.9520, L501.9985, L506.1000, L100.0100, L500.4100, L500.4050 ####[facility] [address] [place], [place], [id number] Creatinine [Mass/Vol] 1.19 mg/dL Normal 0.70-1.30 [facility] Comment on above: Order Comment: Order Date: 12/02/24Order Info: 785- - CMPOrder Info: - LIPIDOrder Info: [id number] - PHOSOrder Info: [id number] - MGOrder Info: [id number] - TSHOrder Info: 3024-04 - T4F Result Comment: The validity of the calculated GFR GFRAA in patients over 70 years has not been determined. Clinical correlation is essential. Performed By: #### L 509.1000, L501.5200, L501.2300, L501.9520, L501.9985, L506.1000, L100.0100, L500.4100, L500.4050 ####[facility] [address] [place], [place], [id number] EST GFR - AA 76 mL/min Normal >60 [facility] Comment on above: Order Comment: Order Date: 12/02/24Order Info: [id number] - CMPOrder Info: [id number] - LIPIDOrder Info: [id number] - PHOSOrder Info: [id number] - MGOrder Info: 3015-12 - TSHOrder Info: 3027 - T4F Result Comment: Afri can Lebanese GFR Calc Performed By: #### L 509.1000, L501.5200, L501.2300, L501.9520, L501.9985, L506.1000, L100.0100, L500.4100, L500.4050 ####[facility] [address] [place], [address] GAP 7 Normal 5-15 [facility] Comment on above: Order Comment: Order Date: 12/02/24Order Info: [id number] - CMPOrder Info: [id number] - LIPIDOrder Info: [id number] - PHOSOrder Info: [id number] - MGOrder Info: [id number] - TSHOrder Info: 3024-04 - T4F Performed By: #### L 509.1000, L501.5200, L501.2300, L501.9520, L501.9985, L506.1000, L100.0100, L500.4100, L500.4050 ####[facility] [address] [place], [address] GFR/1.73 sq M.predicted among non-blacks MDRD (S/P/Bld) [Vol rate/Area] 63 mL/min/{1.73_m2} Normal >60 [facility] Comment on above: Order Comment: Order Date: 12/02/24Order Info: [id number] - CMPOrder Info: - LIPIDOrder Info: [id number] - PHOSOrder Info: [id number] - MGOrder Info: [id number] - TSHOrder Info: 3024-04 - T4F Result Comment: Non- GFR Calc Performed By: #### L 509.1000, L501.5200, L501.2300, L501.9520, L501.9985, L506.1000, L100.0100, L500.4100, L500.4050 ####[facility] [address] [place], [place], [address] Globulin (S) [Mass/Vol] 3.2 g/dL Normal 2.2-4.2 [facility] Comment on above: Order Comment: Order Date: 12/02/24Order Info: [id number] - CMPOrder Info: [id number] - LIPIDOrder Info: [id number] - PHOSOrder Info: [id number] - MGOrder Info: 3 - TSHOrder Info: 3024-7 - T4F Performed By: #### L 509.1000, L501.5200, L501.2300, L501.9520, L501.9985, L506.1000, L100.0100, L500.4100, L500.4050 ####[facility] [address] [place], [place], [address] Glucose [Mass/Vol] 79 mg/dL Normal 74-106 [facility] Comment on above: Order Comment: Order Date: 12/02/24Order Info: 785- - CMPOrder Info: - LIPIDOrder Info: [id number] - PHOSOrder Info: [id number] - MGOrder Info: [id number] - TSHOrder Info: 3024-7 - T4F Performed By: #### L 509.1000, L501.5200, L501.2300, L501.9520, L501.9985, L506.1000, L100.0100, L500.4100, L500.4050 ####[facility] [address] [place], [place], [address] Potassium [Moles/Vol] 4.8 mmol/L Normal 3.5-5.1 [facility] Comment on above: Order Comment: Order Date: 12/02/24Order Info: [id number] - CMPOrder Info: [id number] - LIPIDOrder Info: 2776- - PHOSOrder Info: [id number] - MGOrder Info: [id number] - TSHOrder Info: 3024-7 - T4F Performed By: #### L 509.1000, L501.5200, L501.2300, L501.9520, L501.9985, L506.1000, L100.0100, L500.4100, L500.4050 ####[facility] [address] [place], [place], [address] Sodium [Moles/Vol] 136 mmol/L Normal 136-145 [facility] Comment on above: Order Comment: Order Date: 12/02/24Order Info: [id number] - CMPOrder Info: [id number] - LIPIDOrder Info: 7-1 - PHOSOrder Info: [id number] - MGOrder Info: [id number] - TSHOrder Info: 302-7 - T4F Performed By: #### L 509.1000, L501.5200, L501.2300, L501.9520, L501.9985, L506.1000, L100.0100, L500.4100, L500.4050 ####[facility] [address] [place], [place], [phone] T PROT 7.3 g/dL Normal 6.4-8.2 [facility] Comment on above: Order Comment: Order Date: 12/02/24Order Info: 785- - CMPOrder Info: [id number] - LIPIDOrder Info: 7- - PHOSOrder Info: [id number] - MGOrder Info: 3 - TSHOrder Info: 302-7 - T4F Performed By: #### L 509.1000, L501.5200, L501.2300, L501.9520, L501.9985, L506.1000, L100.0100, L500.4100, L500.4050 ####[facility] [address] [place], [address] Urea nitrogen [Mass/Vol] 20 mg/dL High 7-18 [facility] Comment on above: Order Comment: Order Date: 12/02/24Order Info: 86-1 - CMPOrder Info: [id number] - LIPIDOrder Info: 7-1 - PHOSOrder Info: [id number] - MGOrder Info: [id number] - TSHOrder Info: 3024-7 - T4F Performed By: #### L 509.1000, L501.5200, L501.2300, L501.9520, L501.9985, L506.1000, L100.0100, L500.4100, L500.4050 ####[facility] [address] [place], [address] Direct serum free thyroxine (FT4) measurementOrdered By: Toby Gaviria on 12-02-2024 Free T4 [Mass/Vol] 1.19 ng/dL 0.76-1.46 [facility] Eosinophil percentageOrdered By: Toby Gaviria on 12-02-2024 Eosinophils/100 WBC (Bld) 1.9 % 0-5 [facility] Epithelial cells.squamous LM Ql (Urine sed)Ordered By: Toby Gaviria on 12-02-2024 Epithelial cells.squamous LM.HPF (Urine sed) [#/Area] 0 /[HPF] 0-5 [facility] Erythrocyte distribution wid th ratioOrdered By: Toby Gaviria on 12-02-2024 Erythrocyte distribution width (RBC) [Ratio] 12.7 % 11.6-14.6 [facility] Erythrocyte distribution wid th standard deviationOrdered By: Toby Gaviria on 12-02-2024 Erythrocyte distribution width (RBC) [Entitic vol] 42.5 fL 35.1-43.9 [facility] Estimated glomerular filtrat ion rate (GFR) AmericanOrdered By: Toby Gaviria on 12-02-2024 Estimated GFR (MDRD) Amer 76 mL/min >60 [facility] Comment on above: GFR Calc Glomerular filtration rate ( GFR) estimationOrdered By: Toby Gaviria on 12-02-2024 Estimated GFR (MDRD) Non-Af Amer 63 mL/min >60 [facility] Comment on above: Non- GFR Calc Glucose Ql (U)Ordered By: Cristy Gaviria on 12-02-2024 Urine Glucose (UA) Normal mg/dl Normal [facility] Glucose measurementOrdered B y: Toby Gaviria on 12-02-2024 Glucose [Mass/Vol] 79 mg/dL 74-106 [facility] Hematocrit Auto (Bld) [Volum e fraction]Ordered By: Toby Gaviria on 12-02-2024 Hematocrit (Bld) [Volume fraction] 45.2 % 40-54 [facility] Hemoglobin A1con 12-02-2024 HbA1c (Bld) [Mass fraction] 5.5 % Normal 3.8-5.6 [facility] Comment on above: Order Comment: Order Date: 12/02/24Order Info: [id number] - A1C Result Comment: Norm al < 5.7 % Prediabetic 5.7 - 6.4 % Diabetic >or= 6.5 % Please note range changes. Performed By: #### L 509.1000, L501.5200, L501.2300, L501.9520, L501.9985, L506.1000, L100.0100, L500.4100, L500.4050 ####[facility] [address] [place], [address] Hemoglobin A1c percentageOrd ered By: Toby Gaviria on 12-02-2024 HbA1c (Bld) [Mass fraction] 5.5 % 3.8-5.6 [facility] Comment on above: Normal < 5.7 % Predi abetic 5.7 - 6.4 % Diabetic >or= 6.5 % Please note range changes. Hemoglobin measurementOrdere d By: Toby Gaviria on 12-02-2024 Hemoglobin (Bld) [Mass/Vol] 14.7 g/dL 13.0-16.5 [facility] High density lipoprotein (HD L) measurementOrdered By: Toby Gaviria on 12-02-2024 Cholesterol in HDL [Mass/Vol] 40 mg/dL >40 [facility] Comment on above: The drugs N-Acetylcy steine and Metamizole may falsely depress this assay. Reference Range HDL <40 mg/dL Low HDL Cholesterol HDL >or= 60 mg/dL High HDL Cholesterol Immature granulocytes/100 WB C Auto (Bld)Ordered By: Toby Gaviria on 12-02-2024 Immature granulocytes/100 WBC (Bld) 0.300 % 0.0-0.9 [facility] Comment on above: IG% - Immature Granu locytes (promyelocytes, myelocytes and metamyelocytes) > 1% indicates that a LEFT SHIFT is Present. Intact parathyroid hormone ( iPTH) measurementOrdered By: Toby Gaviria on 12-02-2024 Parathyroid Hormone (Intact) 71.0 pg/mL 18.4-80.1 [facility] Ketones Test strip Ql (U)Ord ered By: Toby Gaviria on 12-02-2024 Ketones Ql (U) Negative Negative [facility] - Chemistry and C hemistry - challengeOrdered By: Toby Gaviria on 12-02-2024 AST [Catalytic activity/Vol] 31 U/L 15-37 [facility] Lipid Profileon 12-02-2024 Cholesterol [Mass/Vol] 130 mg/dL Normal 200 [facility] Comment on above: Order Comment: Order Date: 12/02/24Order Info: [id number]- - CMPOrder Info: [id number] - LIPIDOrder Info: [id number] - PHOSOrder Info: [id number] - MGOrder Info: 3 - TSHOrder Info: 7 - T4F Result Comment: <200 mg/dL Desirable 200-240 mg/dL Borderline >240 mg/dL High Risk Performed By: #### L 509.1000, L501.5200, L501.2300, L501.9520, L501.9985, L506.1000, L100.0100, L500.4100, L500.4050 ####[facility] [address] [place], [address] Cholesterol in HDL [Mass/Vol] 40 mg/dL Normal [facility] Comment on above: Order Comment: Order Date: 12/02/24Order Info: [id number] - CMPOrder Info: [id number] - LIPIDOrder Info: 7- - PHOSOrder Info: [id number] - MGOrder Info: 6-3 - TSHOrder Info: [id number] - T4F Result Comment: The drugs N-Acetylcysteine and Metamizole may falsely depress this assay. Reference Range HDL <40 mg/dL Low HDL Cholesterol HDL >or= 60 mg/dL High HDL Cholesterol Performed By: #### L 509.1000, L501.5200, L501.2300, L501.9520, L501.9985, L506.1000, L100.0100, L500.4100, L500.4050 ####[facility] [address] [place], [address] Cholesterol in LDL [Mass/Vol] 63 mg/dL Normal 0-130 [facility] Comment on above: Order Comment: Order Date: 12/02/24Order Info: 86-1 - CMPOrder Info: [id number] - LIPIDOrder Info: [id number]- - PHOSOrder Info: [id number] - MGOrder Info: [id number] - TSHOrder Info: 3024-7 - T4F Performed By: #### L 509.1000, L501.5200, L501.2300, L501.9520, L501.9985, L506.1000, L100.0100, L500.4100, L500.4050 ####[facility] [address] [place], [address] Cholesterol in VLDL [Mass/Vol] 27 mg/dL Normal 5-40 [facility] Comment on above: Order Comment: Order Date: 12/02/24Order Info: 86-1 - CMPOrder Info: [id number] - LIPIDOrder Info: [id number]- - PHOSOrder Info: [id number] - MGOrder Info: [id number] - TSHOrder Info: 4-7 - T4F Performed By: #### L 509.1000, L501.5200, L501.2300, L501.9520, L501.9985, L506.1000, L100.0100, L500.4100, L500.4050 ####[facility] [address] [place], [address] Triglyceride [Mass/Vol] 133 mg/dL Normal [facility] Comment on above: Order Comment: Order Date: 12/02/24Order Info: 86-1 - CMPOrder Info: [id number] - LIPIDOrder Info: 7- - PHOSOrder Info: [id number] - MGOrder Info: 301-3 - TSHOrder Info: 3024-7 - T4F Result Comment: The drugs N-Acetylcysteine and Metamizole may falsely depress this assay. Serum Triglycerides Reference Interval Normal <150 mg/dL Borderline high 150 - 199 mg/dL High 200 - 499 mg/dL Very High > or = 500 mg/dL Performed By: #### L 509.1000, L501.5200, L501.2300, L501.9520, L501.9985, L506.1000, L100.0100, L500.4100, L500.4050 ####[facility] [address] [place], [address] Low density lipoprotein (LDL ) cholesterol measurementOrdered By: Toby Gaviria on 12-02-2024 Cholesterol in LDL [Mass/Vol] 63 mg/dL 0-130 [facility] Lymphocytes Auto (Unsp spec) [#/Vol]Ordered By: Toby Gaviria on 12-02-2024 Lymphocytes (Bld) [#/Vol] 2.24 10*3/uL 0.83-4.51 [facility] Lymphocytes/100 WBC Auto (Un sp spec)Ordered By: Toby Gaviria on 12-02-2024 Lymphocytes/100 WBC (Bld) 32.7 % 19-41 [facility] MCV (mean corpuscular volume ) determinationOrdered By: Toby Gaviria on 12-02-2024 MCV (RBC) [Entitic vol] 91.7 fL 80-94 [facility] Magnesiumon 12-02-2024 Magnesium [Mass/Vol] 2.3 mg/dL Normal 1.6-2.6 [facility] Comment on above: Order Comment: Order Date: 12/02/24Order Info: [id number] - CMPOrder Info: [id number] - LIPIDOrder Info: [id number] - PHOSOrder Info: [id number] - MGOrder Info: [id number] - TSHOrder Info: 3024-7 - T4F Performed By: #### L 509.1000, L501.5200, L501.2300, L501.9520, L501.9985, L506.1000, L100.0100, L500.4100, L500.4050 ####[facility] [address] [place], [address] Magnesium measurementOrdered By: Toby Gaviria on 12-02-2024 Magnesium [Mass/Vol] 2.3 mg/dL 1.6-2.6 [facility] Mean corpuscular hemoglobin (MCH) determinationOrdered By: Toby Gaviria on 12-02-2024 MCH (RBC) [Entitic mass] 29.8 pg 27.0-32.0 [facility] Mean corpuscular hemoglobin concentration (MCHC) determinationOrdered By: Toby Gaviria on 12-02-2024 MCHC (RBC) [Mass/Vol] 32.5 g/dL 32-36 [facility] Mean platelet volume determi nationOrdered By: Toby Gaviria on 12-02-2024 Platelet mean volume (Bld) [Entitic vol] 11.3 fL 6.2-12.0 [facility] Microscopic analysis of urin e for red blood cells (RBC)Ordered By: Toby Gaviria on 12-02-2024 Urine RBC 0-5 SEEN /hpf 0-5 [facility] Monocyte percentageOrdered B y: Toby Gaviria on 12-02-2024 Monocytes/100 WBC (Bld) 10.5 % High 0-10 [facility] Mucus LM Ql (Urine sed)Order ed By: Toby Gaviria on 12-02-2024 Mucus Ql (Urine sed) 0 SEEN /hpf [facility] Neutrophil percentageOrdered By: Toby Gaviria on 12-02-2024 Neutrophils/100 WBC (Bld) 54.3 % 47-70 [facility] Nitrite Test strip Ql (U)Ord ered By: Toby Gaviria on 12-02-2024 Nitrite Ql (U) Negative Negative [facility] Nucleated red blood cell per centageOrdered By: Toby Gaviria on 12-02-2024 Nucleated RBC/100 WBC (Bld) [Ratio] 0 % 0-5 [facility] PTHINon 12-02-2024 PTH 71.0 pg/mL Normal 18.4-80.1 [facility] Comment on above: Order Comment: Order Date: 12/02/24Order Info: [id number] - PTHIN Performed By: #### L 509.1000, L501.5200, L501.2300, L501.9520, L501.9985, L506.1000, L100.0100, L500.4100, L500.4050 ####[facility] [address] [place], [address] Phosphoruson 12-02-2024 Phosphate [Mass/Vol] 3.0 mg/dL Normal 2.5-4.9 [facility] Comment on above: Order Comment: Order Date: 12/02/24Order Info: [id number] - CMPOrder Info: [id number] - LIPIDOrder Info: [id number] - PHOSOrder Info: [id number] - MGOrder Info: [id number] - TSHOrder Info: [id number] - T4F Performed By: #### L 509.1000, L501.5200, L501.2300, L501.9520, L501.9985, L506.1000, L100.0100, L500.4100, L500.4050 ####[facility] [address] [place], [address] Phosphorus measurementOrdere d By: Toby Gaviria on 12-02-2024 Phosphorus Level 3.0 mg/dL 2.5-4.9 [facility] Platelet countOrdered By: Cristy Gaviria on 12-02-2024 Platelets (Bld) [#/Vol] 166 10*3/uL 150-450 [facility] Potassium measurementOrdered By: Toby Gaviria on 12-02-2024 Potassium [Moles/Vol] 4.8 mmol/L 3.5-5.1 [facility] Protein Test strip Ql (U)Ord ered By: Toby Gaviria on 12-02-2024 Protein Ql (U) Negative Negative [facility] Protein+Creatinine Ratio,Uri neon 12-02-2024 PROT:CRE RATIO 60 mg/g CRE Normal 0-200 [facility] Comment on above: Performed By: #### L 501.0900, [id number] #### [facility] [address] [place], [address] PROTEIN,UR.RAN. < 6.0 Normal <11.9 [facility] Comment on above: Performed By: #### L 501.0900, [id number] #### [facility] [address] [place], [address] UR CREAT 86.00 mg/dL Normal NO RANGE EST. [facility] Comment on above: Performed By: #### L 501.0900, [id number] #### [facility] [address] [place], [address] Protein/Creatinine (U) [Mass ratio]Ordered By: Toby Gaviria on 12-02-2024 Urine Protein/Creatinine Ratio 60 mg/g CRE 0-200 [facility] RBC Auto (Bld) [#/Vol]Ordere d By: Toby Gaviria on 12-02-2024 RBC (Bld) [#/Vol] 4.93 10*6/uL 4.6-6.2 [facility] Random urine protein measure mentOrdered By: Toby Gaviria on 12-02-2024 Urine Random Total Protein < 6.0 mg/dL 0.0-11.8 [facility] Serum anion gap measurementO rdered By: Toby Gaviria on 12-02-2024 Anion gap [Moles/Vol] 7 mmol/L 5-15 [facility] Serum globulin measurementOr dered By: Toby Gaviria on 12-02-2024 Globulin (S) [Mass/Vol] 3.2 g/dL 2.2-4.2 [facility] Serum or plasma alanine san otransferase (ALT) measurementOrdered By: Toby Gaviria on 12-02-2024 ALT [Catalytic activity/Vol] 35 U/L 16-61 [facility] Serum or plasma albumin jayden urement (mass/volume)Ordered By: Toby Gaviria on 12-02-2024 Albumin [Mass/Vol] 4.1 g/dL 3.2-5.0 [facility] Serum or plasma alkaline joe sphatase measurementOrdered By: Toby Gaviria on 12-02-2024 ALP [Catalytic activity/Vol] 80 U/L 45-117 [facility] Serum or plasma calcium jayden urement (mass/volume)Ordered By: Toby Gaviria on 12-02-2024 Calcium [Mass/Vol] 9.2 mg/dL 8.5-10.1 [facility] Serum or plasma cholesterol measurement (mass/volume)Ordered By: Toby Gaviria on 12-02-2024 Cholesterol [Mass/Vol] 130 mg/dL <200 [facility] Comment on above: <200 mg/dL Desirable 200-240 mg/dL Borderline >240 mg/dL High Risk Serum or plasma creatinine m easurement (mass/volume)Ordered By: Toby Gaviria on 12-02-2024 Creatinine [Mass/Vol] 1.19 mg/dL 0.70-1.30 [facility] Comment on above: The validity of the calculated GFR & GFRAA in patients over 70 years has not been determined. Clinical correlation is essential. Serum or plasma urea nitroge n measurement (mass/volume)Ordered By: Toby Gaviria on 12-02-2024 Urea nitrogen [Mass/Vol] 20 mg/dL High 05-01 [facility] Sodium levelOrdered By: Toby Gaviria on 12-02-2024 Sodium [Moles/Vol] 136 mmol/L 136-145 [facility] T4 Free Directon 12-02-2024 T4 FREE DIRECT 1.19 ng/dL Normal 0.76-1.46 [facility] Comment on above: Order Comment: Order Date: 12/02/24 Order Info: [id number] - CMP Order Info: [id number] - LIPID Order Info: [id number] - PHOS Order Info: [id number] - MG Order Info: [id number] - TSH Order Info: [id number] - T4F Performed By: #### L 506.0400 #### [facility] [address] [place] [address], [address] TPO Ab QnOrdered By: Toby canales on 12-02-2024 Thyroid Peroxidase Antibodies < 9 IU/mL 0-34 [facility] Comment on above: Performed at: [address] [id number] Director: Phill Oneill PhD, Phone: [phone] TSH QnOrdered By: Toby briones on 12-02-2024 Thyroid Stimulating Hormone (TSH) 2.110 uIU/mL 0.358-3.740 [facility] Thyroglobulin Ab serumOrdere d By: Toby Gaviria on 12-02-2024 Thyroglobulin Antibody < 1.0 IU/mL 0.0-0.9 [facility] Comment on above: Thyroglobulin Antibo dy measured by Sarah CoulterMethodologyIt should be noted that the presence of thyroglobulinantibodies may not be pathogenic nor diagnostic, especiallyat very low levels. The assay glue mounter operator has found thatfour percent of individuals without evidence of thyroiddisease or autoimmunity will have positive TgAb levels upto 4 IU/mL. Thyroglobulin serOrdered By: Toby Gaviria on 12-02-2024 Thyroglobulin Level 22.5 ng/mL 1.4-29.2 [facility] Comment on above: According to the [facility] [employer],the reference interval for Thyroglobulin (TG) should berelated to euthyroid patients and not for patients whounderwent thyroidectomy. TG reference intervals for thesepatients depend on the residual mass of the thyroid tissueleft after surgery. Establishing a post-operative baselineis recommended. The assay limit of quantitation is 0.1ng/mLThyroglobulin measured by Sarah Josette [employer] Thyroid Stim Hormone (TSH)on 12-02-2024 TSH 2.110 uIU/mL Normal 0.358-3.740 [facility] Comment on above: Order Comment: Order Date: 12/02/24Order Info: [id number] - CMPOrder Info: [id number] - LIPIDOrder Info: [id number] - PHOSOrder Info: [id number] - MGOrder Info: [id number] - TSHOrder Info: [id number] - T4F Performed By: #### L 509.1000, L501.5200, L501.2300, L501.9520, L501.9985, L506.1000, L100.0100, L500.4100, L500.4050 ####[facility] [address] [place], [address] Total proteinOrdered By: Hernesto Gaviria on 12-02-2024 Protein [Mass/Vol] 7.3 g/dL 6.4-8.2 [facility] Triglycerides measurementOrd ered By: Toby Gaviria on 12-02-2024 Triglyceride [Mass/Vol] 133 mg/dL <199 [facility] Comment on above: The drugs N-Acetylcy steine and Metamizole may falsely depress this assay.Serum Triglycerides Reference Interval Normal <150 mg/dL Borderline high 150 - 199 mg/dL High 200 - 499 mg/dL Very High > or = 500 mg/dL Urinalysis, Completeon 12-02 BACTERIA RARE Normal None Seen [facility] Comment on above: Order Comment: CLEAN CATCH Performed By: #### L 501.0900, [id number] #### [facility] [address] [place], [address] EPI,SQUAMOUS 0-5 SEEN Normal 0-5 [facility] Comment on above: Order Comment: CLEAN CATCH Performed By: #### L 501.0900, [id number] #### [facility] [address] [place], [address] RBC 0-5 SEEN Normal 0-5 [facility] Comment on above: Order Comment: CLEAN CATCH Performed By: #### L 501.0900, [id number] #### [facility] [address] [place], [address] WBC 0-5 SEEN Normal 0-5 [facility] Comment on above: Order Comment: CLEAN CATCH Performed By: #### L 501.0900, [id number] #### [facility] [address] [place], [address] Mucus Ql (Urine sed) 0 SEEN Normal [facility] Comment on above: Order Comment: CLEAN CATCH Performed By: #### L 501.0900, [id number] #### [facility] [address] [place], [address] Urine blood detectionOrdered By: Toby Gaviria on 12-02-2024 Urine Occult Blood Negative Negative [facility] Urine clarityOrdered By: Hernesto Gaviria on 12-02-2024 Clarity (U) Clear Clear [facility] Urine color determinationOrd ered By: Toby Gaviria on 12-02-2024 Color (U) Yellow Yellow [facility] Urine creatinine measurement (mass/volume)Ordered By: Toby Gaviria on 12-02-2024 Creatinine (U) [Mass/Vol] 86.00 mg/dL NO RANGE EST. [facility] Urine leukocyte esterase det ection by dipstickOrdered By: Toby Gaviria on 12-02-2024 Leukocyte esterase Test strip Ql (U) Negative Negative [facility] Urine pHOrdered By: Toby tee on 12-02-2024 pH (U) 6.0 [pH] 5.0 - 8.0 [facility] Urine specific gravity measu rementOrdered By: Toby Gaviria on 12-02-2024 Specific gravity (U) [Rel density] 1.015 1.002-1.030 [facility] Urobilinogen Ql (U)Ordered B y: Toby Gaviria on 12-02-2024 Urine Urobilinogen Normal mg/dl Normal [facility] Very low density lipoprotein (VLDL) cholesterol measurementOrdered By: Toby Gaviria on 12-02-2024 VLDL Cholesterol 27 mg/dL 5-40 [facility] White blood cell (WBC) count Ordered By: Toby Gaviria on 12-02-2024 WBC (Bld) [#/Vol] 6.9 10*3/uL 4.4-11.0 [facility] White blood cell countOrdere d By: Toby Gaviria on 12-02-2024 Urine WBC 0-5 SEEN /hpf 0-5 [facility] Absolute lymphocyte countOrd ered By: Mare Lyons on 10-05-2023 Lymphocytes Auto (Unsp spec) [#/Vol] 1.90 10*3/uL 0.83-4.51 [facility] Basophil percentageOrdered B y: Mare Lyons on 10-05-2023 Basophils/100 WBC (Bld) 0.3 % 0-1 [facility] Bilirubin [Mass/Vol] 0.80 mg/dL 0.20-1.00 [facility] Comment on above: For patients on eltr ombopag therapy, use of Dimension Mccammon TBIL is not recommended. Chloride [Moles/Vol] 106 mmol/L 98-107 [facility] Cholesterol [Mass/Vol] 125 mg/dL <200 [facility] Comment on above: <200 mg/dL Desirable 200-240 mg/dL Borderline >240 mg/dL High Risk Eosinophils/100 WBC (Bld) 2.2 % 0-5 [facility] Glucose [Mass/Vol] 95 mg/dL 74-106 [facility] Neutrophils (Bld) [#/Vol] 3.7 10*3/uL 2.0-7.7 [facility] Neutrophils/100 WBC (Bld) 58.5 % 47-70 [facility] Potassium [Moles/Vol] 4.8 mmol/L 3.5-5.1 [facility] Protein [Mass/Vol] 7.1 g/dL 6.4-8.2 [facility] Sodium [Moles/Vol] 138 mmol/L 136-145 [facility] Triglyceride [Mass/Vol] 119 mg/dL <199 [facility] Comment on above: The drugs N-Acetylcy steine and Metamizole may falsely depress this assay.Serum Triglycerides Reference Interval Normal <150 mg/dL Borderline high 150 - 199 mg/dL High 200 - 499 mg/dL Very High > or = 500 mg/dL WBC (Bld) [#/Vol] 6.3 10*3/uL 4.4-11.0 [facility] Blood erythrocytes count (nu mber/volume)Ordered By: Mare Lyons on 10-05-2023 RBC (Bld) [#/Vol] 4.89 10*6/uL 4.6-6.2 [facility] Blood hemoglobin measurement (mass/volume)Ordered By: Mare Lyons on 10-05-2023 Hemoglobin (Bld) [Mass/Vol] 14.9 g/dL 13.0-16.5 [facility] Blood lymphocytes/100 leukoc ytesOrdered By: Mare Lyons on 10-05-2023 Lymphocytes/100 WBC (Bld) 30.2 % 19-41 [facility] Blood monocytes/100 leukocyt esOrdered By: Mare Lyons on 10-05-2023 Monocytes/100 WBC (Bld) 8.3 % 0-10 [facility] Blood platelet mean volumeOr dered By: Mare Lyons on 10-05-2023 Platelet mean volume (Bld) [Entitic vol] 10.7 fL 6.2-12.0 [facility] Determination of erythrocyte mean corpuscular volume (MCV)Ordered By: Mare Lyons on 10-05-2023 MCV (RBC) [Entitic vol] 90.0 fL 80-94 [facility] Hematocrit Auto (Bld) [Volum e fraction]Ordered By: Mare Lyons on 10-05-2023 Hematocrit (Bld) [Volume fraction] 44.0 % 40-54 [facility] - Chemistry and C hemistry - challengeOrdered By: Mare Lyons on 10-05-2023 ALP [Catalytic activity/Vol] 85 U/L 45-117 [facility] ALT [Catalytic activity/Vol] 32 U/L 16-61 [facility] CO2 [Moles/Vol] 31.0 mmol/L 21.0-32.0 [facility] Globulin (S) [Mass/Vol] 3.5 g/dL 2.2-4.2 [facility] Urea nitrogen/Creatinine [Mass ratio] 14.7 mg/mg 10-20 [facility] - Hematology and Cell countsOrdered By: Mare Lyons on 10-05-2023 Erythrocyte distribution width (RBC) [Entitic vol] 41.1 fL 35.1-43.9 [facility] Erythrocyte distribution width (RBC) [Ratio] 12.5 % 11.6-14.6 [facility] Immature granulocytes/100 WBC (Bld) 0.500 % 0.0-0.9 [facility] Comment on above: IG% - Immature Granu locytes (promyelocytes, myelocytes and metamyelocytes) > 1% indicates that a LEFT SHIFT is Present. MCH (RBC) [Entitic mass] 30.5 pg 27.0-32.0 [facility] Nucleated RBC/100 WBC (Bld) [Ratio] 0 % 0-5 [facility] MCHC Auto (RBC) [Mass/Vol]Or dered By: Mare Lyons on 10-05-2023 MCHC (RBC) [Mass/Vol] 33.9 g/dL 32-36 [facility] No Panel InformationOrdered By: Mare Lyons on 10-05-2023 Estimated GFR (MDRD) Amer 70 mL/min >60 [facility] Comment on above: GFR Calc Estimated GFR (MDRD) Non-Af Amer 58 mL/min >60 [facility] Comment on above: Non- GFR Calc Prostate Specific Antigen Screen 1.86 ng/mL 0.00-4.00 [facility] Comment on above: This test was perfor med using the TPSA assay method for [employer] chemistry system. Values obtained with differentassay methods cannot be used interchangably.When changing PSA assays in the course of monitoring apatient, additional sequential testing should be carriedout to confirm baseline values. Platelets bldOrdered By: Mare Lyons on 10-05-2023 Platelets (Bld) [#/Vol] 159 10*3/uL 150-450 [facility] Serum or plasma albumin jayden urement (mass/volume)Ordered By: Mare Lyons on 10-05-2023 Albumin [Mass/Vol] 3.6 g/dL 3.2-5.0 [facility] Serum or plasma albumin/glob ulin mass ratioOrdered By: Mare Lyons on 10-05-2023 Albumin/Globulin [Mass ratio] 1.0 {ratio} 0.9-2.4 [facility] Serum or plasma calcium jayden urement (mass/volume)Ordered By: Mare Lyons on 10-05-2023 Calcium [Mass/Vol] 9.3 mg/dL 8.5-10.1 [facility] Serum or plasma cholesterol in HDL measurement (mass/volume)Ordered By: Mare Lyons on 10-05-2023 Cholesterol in HDL [Mass/Vol] 37 mg/dL >40 [facility] Comment on above: The drugs N-Acetylcy steine and Metamizole may falsely depress this assay. Reference Range HDL <40 mg/dL Low HDL Cholesterol HDL >or= 60 mg/dL High HDL Cholesterol Serum or plasma cholesterol in VLDL measurement (mass/volume)Ordered By: Mare Lyons on 10-05-2023 Cholesterol in VLDL [Mass/Vol] 24 mg/dL 5-40 [facility] Serum or plasma creatinine m easurement (mass/volume)Ordered By: Mare Lyons on 10-05-2023 Creatinine [Mass/Vol] 1.29 mg/dL 0.70-1.30 [facility] Comment on above: The validity of the calculated GFR & GFRAA in patients over 70 years has not been determined. Clinical correlation is essential. Serum or plasma low density lipoprotein (LDL) cholesterol measurement (mass/volume)Ordered By: Mare Lyons on 10-05-2023 Cholesterol in LDL [Mass/Vol] 64 mg/dL 0-130 [facility] Serum or plasma urea nitroge n measurement (mass/volume)Ordered By: Mare Lyons on 10-05-2023 Urea nitrogen [Mass/Vol] 19 mg/dL 7-18 [facility] Thin prep Papanicolaou smear with manual screeningOrdered By: Mare Lyons on 10-05-2023 Thin prep Papanicolaou smear with manual screening 24 U/L 15-37 [facility] Thin prep Papanicolaou smear with manual screening 1 5-15 [facility] Basophil percentageOrdered B y: Dr. Her on 12-19-2022 Cholesterol [Mass/Vol] 129 mg/dL <200 [facility] Comment on above: <200 mg/dL Desirable 200-240 mg/dL Borderline >240 mg/dL High Risk Triglyceride [Mass/Vol] 120 mg/dL <199 [facility] Comment on above: The drugs N-Acetylcy steine and Metamizole may falsely depress this assay.Serum Triglycerides Reference Interval Normal <150 mg/dL Borderline high 150 - 199 mg/dL High 200 - 499 mg/dL Very High > or = 500 mg/dL Serum or plasma cholesterol in HDL measurement (mass/volume)Ordered By: Dr. Her on 12-19-2022 Cholesterol in HDL [Mass/Vol] 34 mg/dL >40 [facility] Comment on above: The drugs N-Acetylcy steine and Metamizole may falsely depress this assay. Reference Range HDL <40 mg/dL Low HDL Cholesterol HDL >or= 60 mg/dL High HDL Cholesterol Serum or plasma cholesterol in VLDL measurement (mass/volume)Ordered By: Dr. Her on 12-19-2022 Cholesterol in VLDL [Mass/Vol] 24 mg/dL 5-40 [facility] Serum or plasma low density lipoprotein (LDL) cholesterol measurement (mass/volume)Ordered By: Dr. Her on 12-19-2022 Cholesterol in LDL [Mass/Vol] 71 mg/dL 0-130 [facility] Absolute lymphocyte countOrd ered By: Damaris Wilhelm on 10-05-2022 Lymphocytes Auto (Unsp spec) [#/Vol] 1.94 10*3/uL 0.83-4.51 [facility] Basophil percentageOrdered B y: Damaris Wilhelm on 10-05-2022 Basophils/100 WBC (Bld) 0.4 % 0-1 [facility] Bilirubin [Mass/Vol] 0.70 mg/dL 0.20-1.00 [facility] Comment on above: For patients on eltr ombopag therapy, use of Dimension Mccammon TBIL is not recommended. Chloride [Moles/Vol] 107 mmol/L 98-107 [facility] Cholesterol [Mass/Vol] 127 mg/dL <200 [facility] Comment on above: <200 mg/dL Desirable 200-240 mg/dL Borderline >240 mg/dL High Risk Eosinophils/100 WBC (Bld) 4.2 % 0-5 [facility] Glucose [Mass/Vol] 111 mg/dL 74-106 [facility] Comment on above: Fasting Glucose resu lt from 100 to 125 mg/dL suggests IMPAIRED HOMEOSTASIS per A.D.A. criteria. Neutrophils (Bld) [#/Vol] 3.9 10*3/uL 2.0-7.7 [facility] Neutrophils/100 WBC (Bld) 57.2 % 47-70 [facility] Potassium [Moles/Vol] 4.6 mmol/L 3.5-5.1 [facility] Protein [Mass/Vol] 6.9 g/dL 6.4-8.2 [facility] Sodium [Moles/Vol] 138 mmol/L 136-145 [facility] Triglyceride [Mass/Vol] 102 mg/dL <199 [facility] Comment on above: The drugs N-Acetylcy steine and Metamizole may falsely depress this assay.Serum Triglycerides Reference Interval Normal <150 mg/dL Borderline high 150 - 199 mg/dL High 200 - 499 mg/dL Very High > or = 500 mg/dL WBC (Bld) [#/Vol] 6.9 10*3/uL 4.4-11.0 [facility] Blood erythrocytes count (nu mber/volume)Ordered By: Damaris Wilhelm on 10-05-2022 RBC (Bld) [#/Vol] 4.78 10*6/uL 4.6-6.2 [facility] Blood hemoglobin measurement (mass/volume)Ordered By: Damaris Wilhelm on 10-05-2022 Hemoglobin (Bld) [Mass/Vol] 14.5 g/dL 13.0-16.5 [facility] Blood lymphocytes/100 leukoc ytesOrdered By: Damaris Wilhelm on 10-05-2022 Lymphocytes/100 WBC (Bld) 28.3 % 19-41 [facility] Blood monocytes/100 leukocyt esOrdered By: Damaris Wilhelm on 10-05-2022 Monocytes/100 WBC (Bld) 9.8 % 0-10 [facility] Blood platelet mean volumeOr dered By: Damaris Wilhelm on 10-05-2022 Platelet mean volume (Bld) [Entitic vol] 11.0 fL 6.2-12.0 [facility] Determination of erythrocyte mean corpuscular volume (MCV)Ordered By: Damaris Wilhelm on 10-05-2022 MCV (RBC) [Entitic vol] 91.2 fL 80-94 [facility] Direct bilirubinOrdered By: Damaris Wilhelm on 10-05-2022 Bilirubin.direct [Mass/Vol] 0.18 mg/dL 0.00-0.30 [facility] Hematocrit Auto (Bld) [Volum e fraction]Ordered By: Damaris Wilhelm on 10-05-2022 Hematocrit (Bld) [Volume fraction] 43.6 % 40-54 [facility] - Chemistry and C hemistry - challengeOrdered By: Damaris Wilhelm on 10-05-2022 ALP [Catalytic activity/Vol] 67 U/L 45-117 [facility] ALT [Catalytic activity/Vol] 34 U/L 16-61 [facility] CO2 [Moles/Vol] 30.0 mmol/L 21.0-32.0 [facility] Globulin (S) [Mass/Vol] 3.3 g/dL 2.2-4.2 [facility] Urea nitrogen/Creatinine [Mass ratio] 18.7 mg/mg 10-20 [facility] - Hematology and Cell countsOrdered By: Damaris Wilhelm on 10-05-2022 Erythrocyte distribution width (RBC) [Entitic vol] 41.0 fL 35.1-43.9 [facility] Erythrocyte distribution width (RBC) [Ratio] 12.5 % 11.6-14.6 [facility] Immature granulocytes/100 WBC (Bld) 0.100 % 0.0-0.9 [facility] Comment on above: IG% - Immature Granu locytes (promyelocytes, myelocytes and metamyelocytes) > 1% indicates that a LEFT SHIFT is Present. MCH (RBC) [Entitic mass] 30.3 pg 27.0-32.0 [facility] Nucleated RBC/100 WBC (Bld) [Ratio] 0 % 0-5 [facility] MCHC Auto (RBC) [Mass/Vol]Or dered By: Damaris Wilhelm on 10-05-2022 MCHC (RBC) [Mass/Vol] 33.3 g/dL 32-36 [facility] No Panel InformationOrdered By: Damaris Wilhelm on 10-05-2022 Estimated GFR (MDRD) Amer 74 mL/min >60 [facility] Comment on above: GFR Calc Estimated GFR (MDRD) Non-Af Amer 61 mL/min >60 [facility] Comment on above: Non- GFR Calc Prostate Specific Antigen Screen 1.59 ng/mL 0.00-4.00 [facility] Comment on above: This test was perfor med using the TPSA assay method for the[employer] chemistry system. Values obtained with differentassay methods cannot be used interchangably.When changing PSA assays in the course of monitoring apatient, additional sequential testing should be carriedout to confirm baseline values. Platelets bldOrdered By: Zuri Wilhelm on 10-05-2022 Platelets (Bld) [#/Vol] 160 10*3/uL 150-450 [facility] Serum or plasma albumin jayden urement (mass/volume)Ordered By: Damaris Wilhelm on 10-05-2022 Albumin [Mass/Vol] 3.6 g/dL 3.2-5.0 [facility] Serum or plasma albumin/glob ulin mass ratioOrdered By: Damaris Wilhelm on 10-05-2022 Albumin/Globulin [Mass ratio] 1.1 {ratio} 0.9-2.4 [facility] Serum or plasma calcium jayden urement (mass/volume)Ordered By: Damaris Wilhelm on 10-05-2022 Calcium [Mass/Vol] 8.7 mg/dL 8.5-10.1 [facility] Serum or plasma cholesterol in HDL measurement (mass/volume)Ordered By: Damaris Wilhelm on 10-05-2022 Cholesterol in HDL [Mass/Vol] 36 mg/dL >40 [facility] Comment on above: The drugs N-Acetylcy steine and Metamizole may falsely depress this assay. Reference Range HDL <40 mg/dL Low HDL Cholesterol HDL >or= 60 mg/dL High HDL Cholesterol Serum or plasma cholesterol in VLDL measurement (mass/volume)Ordered By: Damaris Wilhelm on 10-05-2022 Cholesterol in VLDL [Mass/Vol] 20 mg/dL 5-40 [facility] Serum or plasma creatinine m easurement (mass/volume)Ordered By: Damaris Wilhelm on 10-05-2022 Creatinine [Mass/Vol] 1.23 mg/dL 0.70-1.30 [facility] Comment on above: The validity of the calculated GFR & GFRAA in patients over 70 years has not been determined. Clinical correlation is essential. Serum or plasma low density lipoprotein (LDL) cholesterol measurement (mass/volume)Ordered By: Damaris Wilhelm on 10-05-2022 Cholesterol in LDL [Mass/Vol] 71 mg/dL 0-130 [facility] Serum or plasma urea nitroge n measurement (mass/volume)Ordered By: Damaris Wilhelm on 10-05-2022 Urea nitrogen [Mass/Vol] 23 mg/dL 7-18 [facility] Thin prep Papanicolaou smear with manual screeningOrdered By: Damaris Wilhelm on 10-05-2022 Thin prep Papanicolaou smear with manual screening 20 U/L 15-37 [facility] Thin prep Papanicolaou smear with manual screening 1 5-15 [facility] Vital Signs Date Time Vital Sign Value Performing Clinician Ani yu 02-19-2025 10:48-0400 Body height 170.[address] Mare Lyons MD Work Phone: [facility] 02-19-2025 10:48-0400 Body mass index (BMI) [Ratio] 31.3 kg/m2 Dr. Mare Loyns MD Work Phone: [facility] 02-19-2025 10:48-0400 Body weight 90.[address] Mare Lyons MD Work Phone: [facility] 02-19-2025 10:48-0400 Diastolic blood pressure 72 mm[Hg] Dr. Mare Lyons MD Work Phone: [facility] 02-19-2025 10:48-0400 Heart rate 63 /min Dr. Mare Lyons MD Work Phone: [facility] 02-19-2025 10:48-0400 Respiratory rate 16 /min Dr. Mare Lyons MD Work Phone: [facility] 02-19-2025 10:48-0400 Systolic blood pressure 104 mm[Hg] Dr. Mare Lyons MD Work Phone: [facility] 11-09-2022 11:07-0500 Body height 170.18 cm DO Damaris Wilhelm Work Phone: [facility] 11-09-2022 11:07-0500 Body mass index (BMI) [Ratio] 31.1 kg/m2 DO Damaris Wilhelm Work Phone: [facility] 11-09-2022 11:07-0500 Body weight 90.26 kg DO Damaris Wilhelm Work Phone: [facility] 11-09-2022 11:07-0500 Diastolic blood pressure 76 mm[Hg] DO Damaris Wilhelm Work Phone: [facility] 11-09-2022 11:07-0500 Heart rate 60 /min DO Damaris Malavenger Work Phone: [facility] 11-09-2022 11:07-0500 Respiratory rate 14 /min DO Damaris [facility] Work Phone: [facility] 11-09-2022 11:07-0500 Systolic blood pressure 123 mm[Hg] DO Damarisjose antonio Malavenger Work Phone: [facility] Encounters Encounter Date Encounter Type Care Provider Facility Start: 05-04-2025 Encounter for preprocedural laboratory examination Alex [facility] Start: 04-27-2025 End: 04-27-[address] Mare Lyons MD Work Phone: -Pulmonary Services/Neurology Start: 04-27-2025 End: 04-27-[address] Alex Sherwood MD -Pulmonary Services/Neurology Work Phone: Start: 04-27-2025 End: [facility] Start: 02-19-2025 End: 02-19-[address] Derik Aj MD -[facility] Work Phone: Start: 02-19-2025 End: 02-19-2025 ambulatory Derik Aj Facility:[facility] Start: 12-25-2024 Non-patient / Non-visit Dr. Portia Levine MD -[facility] Start: 12-25-2024 End: 12-25-[address] Toby Gaviria MD Work Phone: [facility] Work Phone: Start: 12-25-2024 End: 12-25-[address] Toby Gaviria MD -Cardiovascular Services Work Phone: Start: 12-25-2024 End: 12-25-2024 ambulatory Toby Gaviria Facility:[facility] Start: 12-04-2024 End: 12-04-[address] Toby Gaviria MD -Ultrasound, [facility] Work Phone: Start: 12-04-2024 End: 12-04-2024 ambulatory Toby Gaviria Facility:[facility] Start: 12-02-2024 End: 12-02-[address] Toby Gaviria MD -Laboratory, [facility] Start: 12-02-2024 End: 12-02-2024 ambulatory Toby Gaviria Facility:[facility] Start: 10-05-2023 End: 10-05-2023 ambulatory [facility] Work Phone: Start: 10-05-2023 End: 10-05-2023 Patient encounter procedure [facility]-Laboratory Work Phone: Start: 12-19-2022 End: 12-19-2022 ambulatory DO Damaris Wilhelm Work Phone: [facility] Work Phone: Start: 12-19-2022 End: 12-19-2022 Patient encounter procedure DO Damaris Wilhelm Work Phone: [facility]-Laboratory Start: 11-13-2022 Non-patient / Non-visit DO Zuri Wilhelm Work Phone: [facility] Start: 11-13-2022 End: 11-13-2022 ambulatory DO Damaris Wilhelm Work Phone: [facility] Work Phone: Start: 11-13-2022 End: 11-13-2022 Patient encounter procedure DO Damaris Wilhelm Work Phone: [facility]-Cardiovascu lar Services Start: 11-09-2022 End: 11-09-2022 Patient encounter procedure DO Damaris Wilhelm Work Phone: [facility] Start: 10-05-2022 End: 10-05-2022 ambulatory [facility] Work Phone: Start: 10-05-2022 End: 10-05-2022 Patient encounter procedure [facility]-Laboratory Procedures Date Procedure Procedure Detail Performing Clinician Start: 12-04-2024 US scan of thyroid Dr. Toby Gaviria MD Work Phone: Immunizations Immunization Date Immunization Notes Care Provider Fa cility 01-05-2021 Covid (Moderna) [facility] 12-08-2020 Covid ([facility]) [facility] 09-14-2019 Influenza virus vaccine [facility] Payers Date Payer Category Payer Self-pay [id number] 2023 Unknown [id number] 2013 Medicare [id number] Self-pay [id number] Unknown [id number] 2.16.8 [id number] Unknown [id number] [id number] [id number] Unknown [id number] 2.16.8 [id number] Unknown [id number] 2.16.8 [id number] Unknown [id number] 2.16.8 [id number] Unknown [id number] 2.16.8 [id number] Unknown [id number] 2.16.8 [id number] Unknown [id number] 2.16.8 [id number] Social History Date Type Detail Facility [facility] ever [facility] Work Phone: Start: 1950 Sex Assigned At Male [facility] Start: 09-07-2021 End: 11-09-2022 Tobacco smoking status [facility] Unknown if ever smoked [facility] Start: 01-16-2020 Occasional [facility] Start: 01-08-2020 None [facility] Start: 01-08-2020 With Family [facility] Start: 01-08-2020 Non-smoker [facility] Start: 12-27-2023 Tobacco smoking stat [facility] Never smoked tobacco (finding) [facility] Start: 01-05-2025 Sex Male (finding) [facility] Evaluation note 02-19-2025 Note Date & Type Note Facility 02-19-2025 Evaluation note Diagnosis Onset Date Resolution Aortic stenosis acute February 19, 2025 10:46am Essential (primary) hypertension chronic February 19, 2025 10:46am Nonobstructive atherosclerosis of coronary artery chronic February 19, 2025 10:46am [facility] Work Phone: Evaluation note Note Date & Type Note Facility Evaluation note No assessment information availa ble [facility] Work Phone: Evaluation note Note Date & Type Note Facility Evaluation note Diagnosis Onset Date Carotid bruit present acute Essential (primary) hypertension chronic Nonobstructive atheroscleros is of coronary artery chronic [facility] Work Phone: Reason for referral (narrative) Note Date & Type Note Facility Reason for referral (narrative) No reason for referral information available [facility] Work Phone: Family History No Family History Records Found Relationship Condition Age at Onset Recorded Date/T avel father Cardiac disease Unknown mother Cerebrovascular accident (CVA) Unknown Chief Complaint and Reason for Visit Chief Complaint INT LABS Chief Complaint INT LABS 1 Y FU CAROTID STENOSIS Reason for Visit Carotid bruit presen t Essential (primary) hypertension Nonobstructive atherosclerosis of coronary artery Chief Complaint NEED LAB ORDER Chief Complaint Admit Date nodule December 04, 2024 12:21pm MURMUR December 25, 2024 7:5 3am Chief Complaint Admit Date 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 February 19, 2025 10:46 am PRE OP April 27, 2025 8:45 am Reason for Visit Admit Date Aortic stenosis February 19, 2025 10:46a m Essential (primary) hypertension February 10:46am Nonobstructive atherosclerosis of winkler ry artery February 19, 2025 10:46am Advance Directives No Advanced Directives Records Found Advance Directive Response Recorded Date/ Time Advance Directives Yes February 16, 2020 8:23am Living Will Yes February 16, 2020 8: 23am Power of Slope Runner Yes February 16, 2020 8:23am Advance Directive Response Recorded Date/ Time Advance Directives Yes February 16, 2020 9:23am Living Will Yes February 16, 2020 9: 23am Power of Slope Runner Yes February 16, 2020 9:23am Advance Directive Response Recorded Date/ Time Advance Directives Yes February 16, 2020 9:23am Advance Directive Response Recorded Date/ Time Living Will Yes February 16, 2020 9: 23am Do you have a Healthcare Power of Slope Runner? Yes February 16, 2020 9:23am Advance Directives Yes February 16, 2020 9:23am Summary Purpose Additional Source Comments Goals (unrecognized section and content) Goals may be documented in a n alternate sectionGoals may be documented in an alternate sectionGoals may be documented in an alternate sectionGoals may be documented in an alternate sectionGoals may be documented in an alternate sectionGoals may be documented in an alternate sectionGoals may be documented in an alternate section Care Teams (unrecognized sec tion and content) Team Status: Active Member Role Status Dates Dr. Toby Burt MD Family Provider Active Damaris Wilhelm DO Primary Care Provider Active Team Status: Inactive Member Role Status Dates Dr. Derik Aj MD Attending Provider Active Damaris Wilhelm DO Primary Care Provider, Referring Provider Active Team Status: Active Member Role Status Dates Damaris Wilhelm DO Primary Care Provider Active Dr. Tony Morris MD Attending Provider Active Team Status: Inactive Member Role Status Dates Damaris Wilhelm DO Primary Care Provi yolette, Attending Provider, Referring Provider Active Team Status: Inactive Member Role Status Dates Damaris Wilhelm DO Primary Care Provider Active Dr. Derik Aj MD Attending Provider, Referring Pro vider Active Team Status: Active Member Role Status Dates Damaris M Melonie , DO Primary Care Provider Active Dr. Tony Morris MD Attending Provider Active Dr. Derik Aj MD Referring Provider Active Team Status: Inactive Member Role Status Dates Damaris Wilhelm DO Primary Care Provider Active Dr. Annia Her MD Attending Provider, Referring Pro vider Active Team Status: Active Member Role Status Dates Dr. Toby Burt MD Family Provider Active Dr. Mare Lyons MD Primary Care Provider Active Team Status: Inactive Member Role Status Dates Dr. Mare Lyons MD Primary Care Prov ider, Attending Provider, Referring Provider Active Team Status: Active Member Role Status Dates Dr. Toby Gaviria MD Primary Care Provider Active Team Status: Inactive Member Role Status Dates Dr. Toby Gaviria MD Primary Care Provider Active Start: December 02, 2024 End: December 02, 2024 Dr. Toby Gaviria MD Attending Provider Active Start: December 02, 2024 End: December 02, 2024 Dr. Toby Gaviria MD Referring Provider Active Start: December 02, 2024 End: December 02, 2024 Team Status: Inactive Member Role Status Dates Dr. Toby Gaviria MD Primary Care Provider Active Start: December 04, 2024 End: December 04, 2024 Dr. Toby Gaviria MD Attending Provider Active Start: December 04, 2024 End: December 04, 2024 Dr. Toby Gaviria MD Referring Provider Active Start: December 04, 2024 End: December 04, 2024 Team Status: Inactive Member Role Status Dates Dr. Toby Gaviria MD Primary Care Provider Active Start: December 25, 2024 End: December 25, 2024 Dr. Toby Gaviria MD Attending Provider Active Start: December 25, 2024 End: December 25, 2024 Dr. Toby Gaviria MD Referring Provider Active Start: December 25, 2024 End: December 25, 2024 Team Status: Active Member Role Status Dates Dr. Toby Gaviria MD Primary Care Provider Active Start: December 25, 2024 Dr. Toby Gaviria MD Referring Provider Active Start: December 25, 2024 Dr. Alejo Jj MD Attending Provider Active S tart: December 25, 2024 Team Status: Active Member Role Status Dates Dr. Toby Gaviria MD Primary Care Provider Active Start: December 25, 2024 Dr. Azul Levine MD Attending Provider Activ e Start: December 25, 2024 Team Status: Active Member Role/Relationship Status Dates Dr. Toby Gaviria MD Primary Care Provider Active Team Status: Inactive Member Role/Relationship Status Dates Dr. Mare Lyons MD Referring Provider Active Start: February 19, 2025 End: February 19, 2025 Dr. Derik Aj MD Attending Provider Active S tart: February 19, 2025 End: February 19, 2025 Dr. Toby Gaviria MD Primary Care Provider Active Start: February 19, 2025 End: February 19, 2025 Team Status: Inactive Member Role/Relationship Status Dates Dr. Toby Gaviria MD Primary Care Provider Active Start: April 27, 2025 End: April 27, 2025 Dr. Alex Sherwood MD Attending Provider Active Start: April 27, 2025 End: April 27, 2025 Dr. Alex Sherwood MD Referring Provider Active Start: April 27, 2025 End: April 27, 2025 (unrecognized sect ion and content) No Status Records Found INFORMATION SOURCE (unrecogn ized section and content) DATE CREATED AUTHOR 05/05/2025 [facility] FOR RECORDS PERTAINING TO PATIENTS WHO ARE OR HAVE BEEN ENROLLED IN A CHEMICAL DEPENDENCY/SUBSTANCEABUSE PROGRAM, SOME INFORMATION MAY BE OMITTED. This clinical summary was aggregated from multiple sources. Caution should be exercised in using it in the provision of clinical care. This summary normalizes information from multiple sources, and as a consequence, information in this document may materially change the coding, format and clinical context of patient data. In addition, data may be omitted in some cases. CLINICAL DECISIONS SHOULD BE BASED ON THE PRIMARY CLINICAL RECORDS. [employer] provides no warranty or guarantee of the accuracy or completeness of information in this document.
== END 2025-05-05 23:59 | disposition home or self-care (01) ==
PROVIDERS: PCP Family Medicine; Referring Provider Family Medicine; Visit Provider Family Medicine
DX: R73.9 Hyperglycemia, unspecified (principal); N18.30 Chronic kidney disease, stage 3 unspecified; M25.559 Pain in unspecified hip; E78.5 Hyperlipidemia, unspecified; I12.9 Hypertensive chronic kidney disease with stage 1 through stage 4 chronic kidney disease, or unspecified chronic kidney disease
CPT/HCPCS: 36415; 73521; 80053; 80061; 81001; 82306; 82570; 83036; 83735; 84156; 85025

== ENCOUNTER 2025-06-29 13:30 | Outpatient (RCR) | payer MEDICARE, OTHER, SELFPAY ==
--- NOTE | 2025-05-20 14:29 | HP.PTEVAL ---
Patient's Visit Information Visit Information Visit Information: SVEN GORDON is a 74 year old M referred to Physical Therapy by Dr. Toby Gaviria MD with a diagnosis of BILTERAL HIP PAIN. Date of Evaluation: 05/20/25 Physical Therapist: Bakari Hutchinson PT, Cert MDT, OCS Visit Plan Frequency: 2x /Week Duration: 4 Weeks Plan: PT INTERVENTIONS PIRIFORMIS /IT BAND FLEXABILITY ,MANUAL THERAPY STM/IT BAND LEFT IT BAND ,STRENGTHENING EX'S LEFT LEG ( HIP FLEXORS/GLUT MEDIUS) ,FUNCTIONAL STRENGTHENING AND MODALITIES Subjective Subjective: This 74 y/o male presents to physical therapy for bilateral hip pain left > right. Patient has had pain ~ 2 months ago . 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 Recommended PT no medication. Did have a fall when on vacation on left knee . Patient location lateral hip left side . Symptoms are intermittent Patient noticed problem with weakness ascending stairs. Aggravating factors walking/standing ,stairs and kneeling. Alleviating factors rest. Patient sleeping okay at night but unable to sleep on left side. Denies paresthesia/tingling. Patient condition affects QOL and function. VOCATION: Retired LEISURE: gardening ,[employer] VOCATION:RETIRED Pain Left Hip: Pain Intensity (Out of 10): 6 Pain Intensity Range: 9 Comment: LATERAL Objective Objective: POSTURE: mild forward posture PALAPTION: tender IT band ,tronhanter GAIT: reciprocal pattern slight decrease stance time left side NEURO: denies paresthesia/tingling FLEXABILITY: hamstrings min tight ,piriformis mod tight MMT: ( peak force) quads 16.7 ,hamstrings 17.2 ,hip flexion 22.1 ,hip abduction 13.9 ,ankle 4/5 Special Tests L Hip Scour: Negative L Hip Quadrant - Intraarticular Pathology: Negative L Hip Trendelenberg - Glut Medius: Negative Balance/Special Test Scores Lower Extremity Functional Score: 32 Goals Goal 1:: Patient to be I with HEP for hip Goal Time Frame: 4-6 Weeks Goal 2:: Patient to improve peak force hips by 5-10# to improve gait and stairs Goal Time Frame: 4-6 Weeks Goal 3:: Patient to improve LFES score by 5 -8 points to improve QOL Goal Time Frame: 4-6 Weeks Goal 4:: Patient to demonstrate 50% improvement with ADLS and housework taks Goal Time Frame: 4-6 Weeks Goal 5:: Patient is able to ascend/descend stairs carrying laundry with min limitations Goal Time Frame: 4-6 Weeks Rehabilitation Potential Physical Therapy Diagnosis: Patient appears to left IT band syndrome and greater trochanter bursitis with pain weakness hip glut medius and quads impairs walking/standing thus benefit from skilled PT Rehabilitation Potential: Good Anticipated Interventions Patient/Client Instruction: Educate patient on: Condition and Plan of Care For the Purpose of:: To decrease pain, To increase ROM, To improve muscle performance and motor function, To improve ability to perform ADL's, To increase tolerance to activity/condition/position, To improve ability of physical actions for home/community/work/leisure, To improve gait and locomotor functions and To improve health of tissue Therapeutic Exercise to Include: Strength training, Flexibilty training, Passive ROM and Active ROM Comment: QUADS/HAMS/HIP For the Purpose of:: To decrease pain, To increase ROM, To improve muscle performance and motor function, To improve ability to perform ADL's, To increase tolerance to activity/condition/position, To improve ability of physical actions for home/community/work/leisure, To improve health of tissue, To decrease soft tissue restriction, To increase flexibility/ROM and To reduce risk of recurrence Manual Therapy Techniques to Include: Mobilization and Soft tissue mobilization For the Purpose of:: To decrease pain, To improve nutrient delivery to tissue, To increase oxygenation perfusion, To improve health of tissue, To decrease soft tissue restriction and To increase flexibility/ROM TENS: Yes IF ES: Yes Cryotherapy (ice pack, ice massage): Yes Thermo therapy (hot pack): Yes Ultrasound (thermal/non thermal): Yes For the Purpose of:: To decrease pain, To increase ROM, To improve nutrient delivery to tissue, To increase oxygenation perfusion, To improve health of tissue and To decrease soft tissue restriction Text: Thank you for the opportunity to evaluate your patient. For Medicare and Medicare HMO plans, please review the plan of care and approve it. It will need to be FAXED BACK to us at [phone] for Medicare purposes. For Medicare only, by signing this I certify the plan of care. Please let me know if there are questions or concerns regarding this plan of care. Physician Signature: Date:
--- NOTE | 2025-06-29 14:02 | HP.PTEVAL ---
Patient's Visit Information Visit Information Visit Information: SVEN GORDON is a 74 year old M referred to Physical Therapy by Dr. Toby Gaviria MD with a diagnosis of BILTERAL HIP PAIN. Date of Evaluation: 05/20/25 Physical Therapist: Bakari Hutchinson PT, Cert MDT, OCS Visit Plan Frequency: 2x /Week Duration: 4 Weeks Plan: D/C Subjective Subjective: This 74 y/o male presents to physical therapy for bilateral hip pain left > right. Patient has had pain ~ 2 months ago . 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 Recommended PT no medication. Did have a fall when on vacation on left knee . Patient location lateral hip left side . Symptoms are intermittent Patient noticed problem with weakness ascending stairs. Aggravating factors walking/standing ,stairs and kneeling. Alleviating factors rest. Patient sleeping okay at night but unable to sleep on left side. Denies paresthesia/tingling. Patient condition affects QOL and function. VOCATION: Retired LEISURE: gardening ,[employer] VOCATION:RETIRED Pain Left Hip: Pain Intensity (Out of 10): 1 Pain Intensity Range: 9 Comment: LATERAL Objective Objective: POSTURE: mild forward posture PALAPTION: tender IT band ,tronhanter GAIT: reciprocal pattern slight decrease stance time left side NEURO: denies paresthesia/tingling FLEXABILITY: hamstrings min tight ,piriformis mod tight MMT: ( peak force) quads 16.7 ,hamstrings 17.2 ,hip flexion 22.1 ,hip abduction 13.9 ,ankle 4/5 Special Tests L Hip Scour: Negative L Hip Quadrant - Intraarticular Pathology: Negative L Hip Trendelenberg - Glut Medius: Negative Balance/Special Test Scores Lower Extremity Functional Score: 57 Goals Goal 1:: Patient to be I with HEP for hip Goal Time Frame: 4-6 Weeks Goal 2:: Patient to improve peak force hips by 5-10# to improve gait and stairs Goal Time Frame: 4-6 Weeks Goal 3:: Patient to improve LFES score by 5 -8 points to improve QOL Goal Time Frame: 4-6 Weeks Goal 4:: Patient to demonstrate 50% improvement with ADLS and housework taks Goal Time Frame: 4-6 Weeks Goal 5:: Patient is able to ascend/descend stairs carrying laundry with min limitations Goal Time Frame: 4-6 Weeks Rehabilitation Potential Physical Therapy Diagnosis: Patient appears to left IT band syndrome and greater trochanter bursitis with pain weakness hip glut medius and quads impairs walking/standing thus benefit from skilled PT Rehabilitation Potential: Good Anticipated Interventions Patient/Client Instruction: Educate patient on: Condition and Plan of Care For the Purpose of:: To decrease pain, To increase ROM, To improve muscle performance and motor function, To improve ability to perform ADL's, To increase tolerance to activity/condition/position, To improve ability of physical actions for home/community/work/leisure, To improve gait and locomotor functions and To improve health of tissue Therapeutic Exercise to Include: Strength training, Flexibilty training, Passive ROM and Active ROM Comment: QUADS/HAMS/HIP For the Purpose of:: To decrease pain, To increase ROM, To improve muscle performance and motor function, To improve ability to perform ADL's, To increase tolerance to activity/condition/position, To improve ability of physical actions for home/community/work/leisure, To improve health of tissue, To decrease soft tissue restriction, To increase flexibility/ROM and To reduce risk of recurrence Manual Therapy Techniques to Include: Mobilization and Soft tissue mobilization For the Purpose of:: To decrease pain, To improve nutrient delivery to tissue, To increase oxygenation perfusion, To improve health of tissue, To decrease soft tissue restriction and To increase flexibility/ROM TENS: Yes IF ES: Yes Cryotherapy (ice pack, ice massage): Yes Thermo therapy (hot pack): Yes Ultrasound (thermal/non thermal): Yes For the Purpose of:: To decrease pain, To increase ROM, To improve nutrient delivery to tissue, To increase oxygenation perfusion, To improve health of tissue and To decrease soft tissue restriction Text: Thank you for the opportunity to evaluate your patient. For Medicare and Medicare HMO plans, please review the plan of care and approve it. It will need to be FAXED BACK to us at [phone] for Medicare purposes. For Medicare only, by signing this I certify the plan of care. Please let me know if there are questions or concerns regarding this plan of care. Physician Signature: Date:
== END 2025-06-29 19:00 | disposition home or self-care (01) ==
LOC: PT 13:30
PROVIDERS: PCP Family Medicine; Referring Provider Family Medicine; Visit Provider Family Medicine
DX: M25.551 Pain in right hip (principal); M25.552 Pain in left hip
CPT/HCPCS: 97110; 97162; 97530

== ENCOUNTER → 2025-08-28 | Outpatient (CLI) | payer MEDICARE, OTHER, SELFPAY ==
[2025-08-28 12:21] LABS: Hematocrit 44.6 % (40-54); Hemoglobin 15.1 g/dL (13.0-16.5); Immature Granulocytes Count 0.020 X10^3/uL (0.0-0.0); Mean Corp Hgb Conc 33.9 g/dL (32-36); Mean Corpuscular Volume 91.0 fL (80-94); Mean Platelet Vol. 11.1 fl (6.2-12.0); NRBC Flagged by Analyzer 0 % (0-5); Platelet Count 163 K/mm3 (150-450); RBC Distribution Width CV 12.7 % (11.6-14.6); RBC Distribution Width SD 41.9 fl (35.1-43.9); Red Blood Count 4.90 M/mm3 (4.6-6.2); White Blood Count 5.8 K/mm3 (4.4-11.0)
[2025-08-28 12:28] LABS: Creatinine, Urine (random) 176.00 mg/dL (39.00-259.00); Protein, Urine (Random) 23.0 mg/dL (0.0-12.0); Protein:Creat Ratio 131 mg/g CRE (0-200)
[2025-08-28 13:09] LABS: AST(SGOT) 33 U/L (<=37); Alanine Aminotransfer ALT/SGPT 27 U/L (<=46); Albumin, Serum 4.4 g/dL (3.4-4.8); Alkaline Phosphatase 83 U/L (40-129); Anion Gap 9 (5-15); BUN 21 mg/dL (4-19); BUN/Creat Ratio 15.7 RATIO (10-20); Calcium,Total 9.6 mg/dL (7.6-11.0); Carbon Dioxide 25.2 mmol/L (21.0-32.0); Chloride 103 mmol/L (98-108); Cholesterol 133 mg/dL (<=200); Globulin 2.8 g/dL (2.2-4.2); Glucose 99 mg/dL (70-99); Low Density Lipoprotein Calc. 76 mg/dL; Potassium 5.0 mmol/L (3.3-5.1); Triglycerides 117 mg/dL; Very Low Density Lipoprotein 23 mg/dL (5-40); Vitamin D,25 Hydroxy 35.0 ng/mL (30-100); cholesterol:hdl ratio screen 3.68
== END | disposition home or self-care (01) ==
LOC: MFPLAB 09:42
PROVIDERS: PCP Family Medicine; Visit Provider Family Medicine
DX: R73.9 Hyperglycemia, unspecified (principal); E78.5 Hyperlipidemia, unspecified
CPT/HCPCS: 36415; 80053; 80061; 82306; 82570; 83036; 84156; 85025